=== PATIENT | female | born 1985 | race Asian ===

== ENCOUNTER 2016-02-24 01:46 | Inpatient (IN) | payer BC ==
[~2016-02-24] VITALS: Ht 161.3 cm; Wt 52.3 kg
[~2016-02-24 01:46] MED LIST: DOXY1TAB3 PO; LORA1TAB PO; ONDA-43 PO
[2016-02-24 02:12] VITALS: BP 130/76; PULSE 76; RESP 20; Ht 161.3 cm; Wt 52.3 kg
[2016-02-24] MEDS ORDERED: LACTATED RINGER'S 1,000 ML IV ONE (02:30)
[2016-02-24] MEDS: LACTATED RINGER'S 1,000 ML IV SCH ×2 (02:30→07:40)
[2016-02-24] MEDS ORDERED: ONDANSETRON 4 MG INJ IM ONE (03:30)
[2016-02-24] MEDS ORDERED: LORAZEPAM 2 MG INJ IM ONE (03:30)
[2016-02-24 03:33] LABS: BASOPHILS % 0.1 % (0.0-2.0); EOSINOPHILS % 0.1 % (0.0-7.0); HEMATOCRIT 33.9 % (37.0-47.0); HEMOGLOBIN 11.7 g/dl (12.0-16.0); LYMPHOCYTES % 8.3 % (15.0-51.0); MEAN CORPUSCULAR HEMOGLOBIN 31.2 pg (29.0-33.0); MEAN CORPUSCULAR HGB CONC 34.6 g/dl (32.0-37.0); MEAN CORPUSCULAR VOLUME 90.2 fl (82.0-101.0); MEAN PLATELET VOLUME 7.2 fl (7.4-10.4); MONOCYTE # 0.1 10^3/ul (0.3-0.9); MONOCYTES % 0.8 % (0.0-11.0); NEUTROPHIL # 11.1 10^3/ul (1.6-7.5); PLATELET COUNT 315 10^3/UL (140-440); RED BLOOD COUNT 3.75 10^6/ul (4.20-5.40); RED CELL DISTRIBUTION WIDTH 12.7 % (11.5-14.5); UNCORRECTED WBC 12.2 10^3/ul (4.8-10.8); WHITE BLOOD COUNT 12.2 10^3/ul (4.8-10.8)
[2016-02-24 03:44] LABS: ALBUMIN 3.8 g/dl (3.3-4.9); POTASSIUM 3.5 mmol/L (3.5-5.1)
[2016-02-24 03:45] LABS: CONDITION 1; LH ANALYZER COMMENTS 1; NEUTROPHILS % 90.7 % (39.0-77.0)
[2016-02-24 03:46] LABS: CREATININE 0.55 mg/dl (0.44-1.00)
[2016-02-24 03:47] LABS: ALBUMIN/GLOBULIN RATIO 1.02; BILIRUBIN,INDIRECT 0.2 mg/dl (0-1.1); BILIRUBIN,TOTAL 0.2 mg/dl (0.2-1.3); TOTAL PROTEIN 7.5 g/dl (6.1-8.1)
[2016-02-24] MEDS ORDERED: FAMOTIDINE 20 MG INJ ONE (04:05)
[2016-02-24] MEDS: ONDANSETRON 4 MG INJ IV PRN ×3 (04:07→17:01)
[2016-02-24 05:36] LABS: ADD UMIC NO; URINE BILIRUBIN (Dip) NEGATIVE (NEGATIVE); URINE BLOOD (Dip) NEGATIVE (NEGATIVE); URINE COLOR LT. YELLOW (YELLOW); URINE GLUCOSE (Dip) NEGATIVE (NEGATIVE); URINE KETONES (Dip) 3+ (NEGATIVE); URINE LEUKOCYTE ESTERASE (Dip) NEGATIVE (NEGATIVE); URINE NITRITE (Dip) NEGATIVE (NEGATIVE); URINE TOTAL PROTEIN (Dip) NEGATIVE (NEGATIVE); URINE UROBILINOGEN (Dip) 0.2 E.U./dL (0.1-1.0)
--- NOTE | 2016-02-24 07:04 | RADRPT ---
PROCEDURE: US OB limited. CLINICAL INDICATION: . Labor. TECHNIQUE: Multiple transabdominal sonographic images of the pelvis were obtained. . COMPARISON: 01/24/2016. FINDINGS: There is a single live intrauterine in cephalic presentation with heart motion of 14 6 beats per minute. The placenta is posteriorly located and without evidence of previa or abruption . The cervix is closed and measures approximately 3.0 cm in length. Amniotic fluid amount appears within normal limits with a single pocket of fluid measuring 5.8 cm in greatest depth. Measurements were made in order to determine age. The results are as follows: BPD = 6.17 cm, 25 weeks 0 days HC = 22.90 cm, 25 weeks 0 days AC = 19.81 cm, 24 weeks 3 days FL = 4.31 cm, 24 weeks 1 day EFW = 692.91 g, 1 pound 8 ounces, 22.2% IMPRESSION: Single live intrauterine measuring 24 weeks 5 days using current ultrasound measurements. Estimated date of delivery is 06/10/2016. RPTAT: PP .Sherri Dodson MD, Date Time Electronically viewed and signed by .Sherri Dodson MD, on 02/24/2016 07:03 .T/
[2016-02-24] MEDS: MULTIVIT/MIN/FOLATE/IRON/PREN TAB PO SCH (09:00)
[2016-02-24] MEDS: LORAZEPAM 2 MG INJ IV PRN ×2 (09:07→20:44)
[2016-02-24] MEDS: FAMOTIDINE 20 MG INJ IV SCH ×2 (09:13→20:34)
--- NOTE | 2016-02-24 17:02 | HP ---
Date/Time of Note Date/Time of Note DATE: 02/24/16 TIME: 16:53 OB - History Hx of Present Free Text/Dictation 31 y.o primigravida at 24w4d with c/o nausea and vomiting and lt side pain for futher care this admission is 5th times for same problem during , known to have cyclic vomiting syndrome even started prior to . at present only able to keep the ice water unable to start IV, requested to aneshegiologist to use jugular vein. Chief Complaint: nausea and vomiting left side pain Estimated Due Date: Jun 09, 2016 : 1 Para: 0 Spontaneous : 0 Therapeutic : 0 Care: Good Care Ultrasounds: Normal mid trimester US Obstetrical Complications: Hyperemesis Medical Complications: Gastrointestinal Past Family/Social History * Past Medical, Surgical, Family and Obstetric Histories reviewed from chart. Blood Type: O+ Rubella: immune RPR/VDRL: Negative GBS Status: Unknown HBsAG: Negative OB Admission Exam Vital Signs Vital Signs Vital Signs Date Time Temp Pulse Resp B/P Pulse Ox O2 Delivery O2 Flow Rate FiO2 02/24/16 02:12 97.7 76 20 130/76 Room Air Physical Exam HEENT: WNL Heart: Rhythm Normal Lungs: Clear, Equal Abdomen: WNL Extremities: Normal Reflexes: Normal Last 72 hours Lab Results CBC & BMP 02/24/16 03:21 Liver Function Test 02/24/16 03:21 Alanine Aminotransferase (ALT/SGPT) 29 Albumin 3.8 Alkaline Phosphatase 87 Aspartate Amino Transf (AST/SGOT) 28 Direct Bilirubin 0.00 Total Protein 7.5 OB Assessment/Plan Other Assessment: IUP 24W6D CYCLIC VOMITING SYNDROME Other plan: ORDERED CIARA AVELAR MD Feb 24, 2016 17:02
[2016-02-25] MEDS: LACTATED RINGER'S 1,000 ML IV SCH ×2 (01:59→02:00)
[2016-02-25] MEDS ORDERED: LACTATED RINGER'S 1,000 ML IV ONE (08:00)
[2016-02-25] MEDS: FAMOTIDINE 20 MG INJ IV SCH ×2 (09:19→21:36)
[2016-02-25] MEDS: MULTIVIT/MIN/FOLATE/IRON/PREN TAB PO SCH (09:20)
[2016-02-25] MEDS: ONDANSETRON 4 MG INJ IV PRN (13:24)
[2016-02-25] MEDS: LORAZEPAM 2 MG INJ IV PRN (14:48)
--- NOTE | 2016-02-25 15:21 | PN ---
Date/Time of Note Date/Time of Note DATE: 02/25/16 TIME: 15:14 OB Subjective Subjective Subjective sleeping at present no vomiting only nausea OB Objective Objective Objective VSS AFEBRILE EFM VARIABLE TODAY THIS AM DOWN TO 100 FOR 50SEC LAB WNL URINE CULTURE NO GROWTH FOR 24HR OB Assessment/Plan Other Assessment: 25WEEKS CYCLIC VOMITING SYNDROME Other plan: CONT CURRENT MANAGEMENT CIARA AVELAR MD Feb 25, 2016 15:21
[2016-02-26] MEDS: LACTATED RINGER'S 1,000 ML IV SCH ×3 (07:55→19:49)
[2016-02-26] MEDS: MULTIVIT/MIN/FOLATE/IRON/PREN TAB PO SCH (09:00)
[2016-02-26] MEDS: FAMOTIDINE 20 MG INJ IV SCH (09:37)
--- NOTE | 2016-02-26 18:24 | PD.PPDC ---
WEIGHER PRODUCTION Discharge Instruction Condition Patient Condition: Good Diet Diet: Resume Regular Diet Activity/Restrictions Activity: Normal Activity Restrictions: No Exercising Follow-up Follow-up with Physician: 1, Week/Weeks Return to clinic for FOOD SANITARIAN Instructions: Worsening abdominal pain Unable to tolerate diet ANIRUDH COOPER MD Feb 26, 2016 18:24
--- NOTE | 2016-02-26 20:55 | DS ---
Date/Time of Note Date/Time of Note DATE: 02/26/16 TIME: 20:52 Obstetrical Discharge Record Final Diagnosis Final Diagnosis: not delivered Other Final Diagnosis Cyclical vomiting syndrome Condition on Discharge Physical Assessment Last Vitals: T=97.6. BP 130/76. NST baseline 130-140's with accels to 160 bpm with occasional small variables within normal range for an IUP at 25 weeks. Bowel Movement: Yes Fundus: Firm Patient Condition: Stable (Able to eat and has had no N/V x 25 hours.) ANIRUDH COOPER MD Feb 26, 2016 20:55
== END 2016-02-26 20:23 | disposition home or self-care (01) | DRG 781 ==
LOC: OBT 01:46 → L-D 01:48 → OBT 02:29 → EEVIPCON 02:32 → OBG 02:32
PROVIDERS: ADMIT Obstetrics & Gynecology; ATTEND Obstetrics & Gynecology
DX: O21.0 Mild hyperemesis gravidarum (principal); Z3A.25 25 weeks gestation of pregnancy
CPT/HCPCS: 36415; 76815; 76817; 80053; 81003; 85025; 87086; 96360; 96372; 96374; G0463; J2060; J2405; J7120

== ENCOUNTER 2016-03-10 18:52 | Inpatient (IN) | END 2016-03-13 20:40 | disposition home or self-care (01) | DRG 781 | DX: O21.2 Late vomiting of pregnancy (principal); Z3A.27 27 weeks gestation of pregnancy ==

== ENCOUNTER 2016-03-14 17:49 | Inpatient (IN) | payer BC ==
[~2016-03-14] VITALS: Ht 160 cm; Wt 53.6 kg
[2016-03-14 18:08] VITALS: Ht 160 cm; Wt 53.6 kg
[2016-03-14 18:09] VITALS: BP 136/86; PULSE 82; RESP 18
--- NOTE | 2016-03-14 19:28 | PN ---
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 She has been taking Ativan Zofran and Zantac on a as needed basis she is now 27 weeks and 4 days her due date is June 09 her vital signs are fairly stable however her blood pressure slightly elevated is 136/86 pulse rate 82 respiration 18 her pain level she describes as 10 over excuse me to 6/10 on examination as I mentioned she is a little nauseated ear nose throat otherwise is she appears to be slightly dehydrated neck is normal no neck vein distention no thyromegaly Her chest is clear to auscultation percussion heart normal sinus rhythm abdomen is soft she has some tenderness of epigastric area fundus is normal no tenderness of uterus no contraction heart tone is normal pelvic exam was not done I ordered a [facility] lab test urinalysis and check electrolytes and a CBC dextrose 5% Ringer lactate was started on 1 mg of Ativan was given recuperating the Current Medications Medications (Trade) Dose Ordered Sig/Laith Route PRN Reason Start Time Stop Time Status Last Admin Dose Admin Dextrose/Lactated Ringer's (D5-Lr) 1,000 ml @ 125 mls/hr Q8H IV 03/14/16 19:30 Ondansetron HCl (Zofran Inj) 4 mg ONCE PRN IV N/V 03/14/16 19:30 UNV Lorazepam (Ativan) 1 mg ONCE ONCE IM 03/14/16 19:30 03/14/16 19:31 UNV triage area for couple more hours and when stable will send her home with central home to be followed in the clinic CHASE TALAVERA MD Mar 14, 2016 19:28
[2016-03-14] MEDS ORDERED: ONDANSETRON 4 MG INJ IV PRN (19:30)
[2016-03-14] MEDS ORDERED: LORAZEPAM 2 MG INJ IM ONE (19:30)
[2016-03-14] MEDS ORDERED: DEXTROSE 5%-LR 1,000 ML IV SCH (19:30)
[2016-03-14 21:07] LABS: HEMATOCRIT 35.2 % (37.0-47.0); HEMOGLOBIN 11.9 g/dl (12.0-16.0); LYMPHOCYTES # 0.8 10^3/ul (0.8-2.9); LYMPHOCYTES % 6.7 % (15.0-51.0); MEAN CORPUSCULAR HEMOGLOBIN 31.3 pg (29.0-33.0); MEAN CORPUSCULAR HGB CONC 33.7 g/dl (32.0-37.0); MEAN CORPUSCULAR VOLUME 92.7 fl (82.0-101.0); MEAN PLATELET VOLUME 7.4 fl (7.4-10.4); MONOCYTE # 0.1 10^3/ul (0.3-0.9); MONOCYTES % 0.8 % (0.0-11.0); NEUTROPHIL # 11.7 10^3/ul (1.6-7.5); NEUTROPHILS % 92.5 % (39.0-77.0); PLATELET COUNT 375 10^3/UL (140-440); UNCORRECTED WBC 12.7 10^3/ul (4.8-10.8); WHITE BLOOD COUNT 12.7 10^3/ul (4.8-10.8)
[2016-03-14 21:12] LABS: CONDITION 1; LH ANALYZER COMMENTS 1
[2016-03-14 21:22] LABS: ALBUMIN 3.4 g/dl (3.3-4.9); BILIRUBIN,INDIRECT 0.2 mg/dl (0-1.1); BILIRUBIN,TOTAL 0.2 mg/dl (0.2-1.3); CREATININE 0.44 mg/dl (0.44-1.00); POTASSIUM 3.3 mmol/L (3.5-5.1)
[2016-03-14 21:24] LABS: ALBUMIN/GLOBULIN RATIO 1.06; CALCIUM 8.5 mg/dl (8.4-10.2); TOTAL PROTEIN 6.6 g/dl (6.1-8.1); URIC ACID 3.3 mg/dl (3.1-7.9)
[2016-03-14] MEDS: LORAZEPAM 2 MG INJ IV PRN (22:01)
[2016-03-14 22:10] LABS: ADD UMIC YES; URINE BILIRUBIN (Dip) NEGATIVE (NEGATIVE); URINE BLOOD (Dip) NEGATIVE (NEGATIVE); URINE COLOR LT. YELLOW (YELLOW); URINE GLUCOSE (Dip) NEGATIVE (NEGATIVE); URINE KETONES (Dip) 3+ (NEGATIVE); URINE LEUKOCYTE ESTERASE (Dip) NEGATIVE (NEGATIVE); URINE NITRITE (Dip) NEGATIVE (NEGATIVE); URINE TOTAL PROTEIN (Dip) NEGATIVE (NEGATIVE); URINE UROBILINOGEN (Dip) 0.2 E.U./dL (0.1-1.0)
[2016-03-14 22:23] LABS: SQUAMOUS EPITHELIAL CELL,UR FEW; URINE RBCS NONE SEEN /HPF (0)
[2016-03-14 22:24] LABS: BACTERIA,URINE MODERATE
[2016-03-14] MEDS: ONDANSETRON INJ 8 MG in DEXTROSE 5% 50 ML IV PRN (23:29)
[2016-03-14] MEDS: DEXTROSE 5%-LR 1,000 ML IV SCH (23:33)
[2016-03-15] MEDS: LORAZEPAM 2 MG INJ IV PRN ×2 (03:56→10:07)
[2016-03-15] MEDS: DEXTROSE 5%-LR 1,000 ML IV SCH ×3 (05:12→17:11)
[2016-03-15] MEDS: ONDANSETRON INJ 8 MG in DEXTROSE 5% 50 ML IV PRN (05:33)
[2016-03-15] MEDS: FAMOTIDINE 20 MG INJ IV SCH ×2 (09:21→21:14)
--- NOTE | 2016-03-15 14:35 | HP ---
Date/Time of Note Date/Time of Note DATE: 03/15/16 TIME: 14:20 OB - History Hx of Present Free Text/Dictation 31 y.o primigravida at 27w4d who has been suffering from repeated vomiting who was discharged after hospitalized for few days for same problem , came back 24hrs after with c/o nausea and vomiting and epigastric pain on 03/14/16 according to patipettyy,she tolerated meals until she went out to restaurant possibly overate. this admission is I believe 7th occasions during this . admitted for management of her condition ,also this time will consult to gastroenerologist since she hasn't been seen forawhile also her blood pressure was relatively elevated on admission which will be also focused on Chief Complaint: nausea and vomiting epigatric pain : 1 Para: 0 Spontaneous : 0 Care: Good Care Ultrasounds: Normal mid trimester US Obstetrical Complications: Other Medical Complications: Gastrointestinal (cyclic vomiting) Past Family/Social History * Past Medical, Surgical, Family and Obstetric Histories reviewed from chart. OB Admission Exam Vital Signs Vital Signs Vital Signs Date Time Temp Pulse Resp B/P Pulse Ox O2 Delivery O2 Flow Rate FiO2 03/14/16 18:09 97.7 82 18 136/86 Room Air Physical Exam HEENT: WNL Heart: Rhythm Normal Lungs: Clear, Equal Abdomen: WNL Extremities: Normal Reflexes: Normal Cervical Dilatation: other Effacement: Other Station: Other Membranes: Intact Amniotic Fluid: Unevaluable Heart Rate: 140's Accelerations: Accelerations Present Decelerations: No Decelerations Varibility: Minimum Contractions on Admission: None Last 72 hours Lab Results CBC & BMP 03/14/16 20:30 Liver Function Test 03/14/16 20:30 Alanine Aminotransferase (ALT/SGPT) 27 Albumin 3.4 Alkaline Phosphatase 82 Aspartate Amino Transf (AST/SGOT) 32 Direct Bilirubin 0.00 Total Protein 6.6 OB Assessment/Plan Reason for admission: other (cyclic vomiting) Other plan: intravenous fluid antiemetics frequent feeding GI conult ( DR Jamison was informed) CIARA AVELAR MD Mar 15, 2016 14:30
[2016-03-15 22:58] LABS: SCRET 0.44 mg/dl (0.44-1.00)
[2016-03-16] MEDS: DEXTROSE 5%-LR 1,000 ML IV SCH ×3 (01:09→22:07)
[2016-03-16] MEDS: FAMOTIDINE 20 MG INJ IV SCH ×2 (09:04→21:39)
--- NOTE | 2016-03-16 12:40 | PD.PPDC ---
VAMP MARKER Discharge Instruction Diagnosis Final Diagnosis: IUP 27w4d cyclic vomiting Condition Patient Condition: Stable Diet Diet: Special Diet Special Diet: no dairy product no chocolate frequent feeding ensure Activity/Restrictions Activity: Normal Activity Follow-up Follow-up with Physician: 2, Week/Weeks CIARA AVELAR MD Mar 16, 2016 12:40
--- NOTE | 2016-03-16 12:47 | DS ---
Date/Time of Note Date/Time of Note DATE: 03/16/16 TIME: 12:41 Obstetrical Discharge Record Final Diagnosis Final Diagnosis: not delivered Other Final Diagnosis IUP 27w4d cyclic vomiting Complications Other (cyclic vomiting) Augmentation: No Induction: No Rupture of Membranes: No Condition on Discharge Physical Assessment Last Vitals: vss afebrile tolerating diet well feel better, desire to go home no vomiting since yesterday pm seen by GI spec no need for ativan for the last day Voiding: Yes Breast: Soft, non-tender Calf Tenderness: No Patient Condition: Stable CIARA AVELAR MD Mar 16, 2016 12:47
--- NOTE | 2016-03-16 13:06 | CONS ---
DATE OF ADMISSION: 03/14/2016 DATE OF CONSULTATION: TYPE OF CONSULTATION: Gastrointestinal. HISTORY OF PRESENT ILLNESS: A 31-year-old pleasant female, at 26 weeks, was admitted to the hospital for nausea, vomiting and epigastric discomfort. This is a recurrent episode and as per [facility] staff it is her seventh episode during this . The patient has had a history of cyclical vomiting since the age of 16. Her symptoms had completely subsided 4 years ago, but during pregnanc y it has come back. The vomiting and nausea is increased by certain foods, especially milk. No GI bleeding, no fever, no chills, no chest pain, no shortness of breath. PAST MEDICAL HISTORY: History of cyclic vomiting since the age of 16. SOCIAL HISTORY: She does not smoke or drink. No history of recreational drugs, especially marijuana . FAMILY HISTORY: Mother has a history of migraine. PHYSICAL EXAMINATION: GENERAL: Alert, awake, not in distress. VITAL SIGNS: Stable. HEENT: Unremarkable. NECK: Supple. No thyromegaly, no lymphadenopathy. CARDIOVASCULAR: No murmur, gallop or click. LUNGS: Clear. ABDOMEN: Benign. EXTREMITIES: No pedal edema. Homans sign is negative. No clubbing, no cyanosis. CENTRAL NERVOUS SYSTEM: Grossly within normal limits. IMPRESSION: 1. Cyclical vomiting. 2. The patient is 26 and 7-weeks PLAN: 1. Zofran sublingually or IV. 2. IV fluid, especially dextrose 10% 3. Continue with H2 darby. 4. The patient is taking Ativan in the hospital and it has given her much relief. 5. She may benefit from CoQ10 200 mg b.i.d., if approved by the SIGN DESIGNER doctor, or , 1 gram twi ce a day. This is a dietary supplement and the patient may benefit for cyclical vomiting. 6. Also, she should avoid cheese and chocolate. Multiple small meals. The patient can also take ei ther Ensure or Glucerna for nutritional support and adequate vitamins. She is not able to take pren atal vitamins. In the future she would benefit also from migraine medication. Sometimes the patient may benefit also from amitriptyline 50 to 100 mg. I will discuss this with Dr. Etaon. Thank you again for the referral. Dictated By: RAYMUNDO DAILY/HENNY Conf#: [id number] [facility]#: [id number]
[2016-03-16] MEDS ORDERED: ONDANSETRON 4 MG INJ ONE (13:19)
[2016-03-16] MEDS: LORAZEPAM 2 MG INJ IV PRN ×2 (14:38→20:57)
[2016-03-16] MEDS: ONDANSETRON INJ 8 MG in DEXTROSE 5% 50 ML IV PRN ×2 (14:56→22:08)
[2016-03-17] MEDS: LORAZEPAM 2 MG INJ IV PRN (03:03)
[2016-03-17] MEDS: DEXTROSE 5%-LR 1,000 ML IV SCH ×4 (07:07→23:26)
[2016-03-17] MEDS: ONDANSETRON INJ 8 MG in DEXTROSE 5% 50 ML IV PRN (08:17)
[2016-03-17] MEDS: FAMOTIDINE 20 MG INJ IV SCH ×2 (09:23→20:48)
[2016-03-18] MEDS: ONDANSETRON INJ 8 MG in DEXTROSE 5% 50 ML IV PRN (08:42)
[2016-03-18] MEDS: FAMOTIDINE 20 MG INJ IV SCH ×2 (09:01→21:00)
[2016-03-18] MEDS: LORAZEPAM 2 MG INJ IV PRN ×2 (09:54→20:40)
[2016-03-18] MEDS: DEXTROSE 5%-LR 1,000 ML IV SCH (13:12)
--- NOTE | 2016-03-18 19:05 | QN ---
Documentation Comment Pt readmitted 03/14 afeter being sent home 03/13. Was doing fine until that morning when she took another turn for the worse. She has been very difficult to place IV's for this admit, as with all admissions. She last the IV she had in her foot this morning, and, generally, the pt is very protective of her IV sites. Will have anesthesia come and place another IV tonight and the pt is in great distress with abdominal pain. The meds given IM do not provide the same level of relief as the IV. BP's, at highest are in 140's over 80's. All PIH labs including the 24 hour urine are very normal. Dr Chavez came to see the patient today and says that sometimes migraine medications can help. The 2 meds he recommended are contraindicated in : CoQ10 and Elavil. The Elavil is mostly contraindicated in the late 3rd trimester so will ask Perinatology to see her tomorrow so we can consider this. Will review CoQ10 to see why exactly this is contraindicated. ANIRUDH COOPER MD Mar 18, 2016 19:05
[2016-03-18] MEDS: D5W-0.45 NACL + KCL 40 MEQ 1,000 ML IV SCH (20:43)
[2016-03-19] MEDS: ONDANSETRON INJ 8 MG in DEXTROSE 5% 50 ML IV PRN (00:27)
[2016-03-19] MEDS: LORAZEPAM 2 MG INJ IV PRN ×2 (02:47→08:02)
[2016-03-19] MEDS: D5W-0.45 NACL + KCL 40 MEQ 1,000 ML IV SCH ×2 (06:59→15:30)
[2016-03-19] MEDS: FAMOTIDINE 20 MG INJ IV SCH ×2 (09:09→23:55)
--- NOTE | 2016-03-19 23:58 | QN ---
Documentation Comment Pt much improved today. Was able to get another IV last night. Pt able to have small sips of Ensure, dry cheerios. Last medication was Zofran this AM. Dr Gallego apparently called today, the consult questions were reviewed with her, per the nurse, and Dr Gallego said that the CoQ10 was fine but the amitryptaline was not. I was not able to speak to her and she did not write a note. I will not be giving the pt any oral meds, at this point, as I do not want to upset her stomach. Possible tomorrow. Pt states that the Elavil is what helped her pull out of the cyclic vomiting cycle 3 years ago, when she was not . Continue care. ANIRUDH COOPER MD Mar 19, 2016 23:58
[2016-03-20] MEDS: D5W-0.45 NACL + KCL 40 MEQ 1,000 ML IV SCH ×3 (03:12→10:51)
[2016-03-20] MEDS: FAMOTIDINE 20 MG INJ IV SCH ×2 (08:52→21:29)
[2016-03-20] MEDS: LORAZEPAM 2 MG INJ IV PRN ×3 (10:42→21:30)
--- NOTE | 2016-03-20 12:37 | CONS ---
DATE OF ADMISSION: 03/14/2016 DATE OF CONSULTATION: 03/20/2016 I was asked to comment on safety of amitriptyline and Coenzyme Q10 on . The patient has a diagnosis of cyclic vomiting. The last episode was 3 years ago. She has been admitted multiple melody with complaint of vomiting throughout this . This is her first . Gastroentero logist has been consulted and they are managing the patient. She is currently on Pepcid, Zofran, an d Ativan. As per patient, Zofran does not have any effect on her, but Ativan helps. She stated cirilo t 3 years ago she was on amitriptyline and amitriptyline helped her to alleviate her symptoms and af ter a few weeks, the symptoms resolved and amitriptyline was discontinued. Amitriptyline in pregnancies class C, there has been some congenital anomalies shown in the animal s tudies, but there are not enough studies on humans to categorically state any risk on . Th ere are a few studies available which have shown that risk of limb anomalies and cardiac anomalies; however, again these studies have not been conclusive. However, use of amitriptyline has been shown to increase the addiction after delivery, presley cially if the patient is taking it for a long period of time or close to the delivery. I spoke to t marilyn patient. I discussed the potential risks and the risk. Also Coenzyme Q10 is a normal u nnatural coenzyme in the body which, therefore, is safe to be taken during the . After we reviewed the risks and benefits of the amitriptyline and the fact that essentially this is the only medication that helped the patient with her last episode 3 years ago, amitriptyline could be conside red. However, amitriptyline and Ativan together I would advise against. If amitriptyline is going to take a few weeks to start taking effect, then maybe the Ativan can be used with the amitriptyline until amitriptyline starts taking effect, and then Ativan can be discontinued. Please make sure th at the patient has had a level 2 ultrasound to assess anatomy at about 20 weeks. Also, I do recommend the patient be on testing twice weekly given the maternal weigh t which is underweight and also nausea, vomiting history and current, and also since she is going to be on amitriptyline or Ativan as it can have anesthetic effect on the fetus. Also, after the delivery, I do recommend to let pediatricians know of maternal use of this medicatio n for them to be aware of possible withdrawal. Dictated By: KEVIN PITTMAN/HENNY Conf#: [id number] DID#: [id number]
--- NOTE | 2016-03-20 18:07 | CONS ---
Date/Time of Note Date/Time of Note DATE: 03/20/16 TIME: 17:59 Assessment/Plan Assessment/Plan Additional Assessment/Plan IMPRESSION: 1. Cyclical vomiting. 2. The patient is 26 and 7-weeks PLAN: 1. Zofran sublingually or IV. 2. IV fluid, especially dextrose 10% 3. Continue with H2 darby. 4. The patient is taking Ativan in the hospital and it has given her much relief. 5. She may benefit from CoQ10 200 mg b.i.d., if approved by the UNIX ADMINISTRATOR doctor, This is a dietary supplement and the patient may benefit for cyclical vomiting. 6. Also, she should avoid cheese and chocolate. Multiple small meals. The patient can also take either Ensure or Glucerna for nutritional support and adequate vitamins. She is not able to take vitamins. In the future she would benefit also from migraine medication. Sometimes the patient may benefit also from amitriptyline 50 to 100 mg.Pt.states amitriptyline did help her in the past.however because of its side effect,,I leave that decision to OBEGYN doctor 7.? if weight is issue then enteral feeding ? Consultation Date/Type/Reason Admit Date/Time Mar 14, 2016 at 21:32 Initial Consult Date 24 HR Interval Summary Constitutional: improved Exam/Review of Systems Vital Signs Vitals Intake and Output 03/19/16 03/19/16 03/20/16 15:00 23:00 07:00 Intake Total 625 ml 436 ml 875 ml Output Total 250 ml Balance 375 ml 436 ml 875 ml Exam Constitutional: alert, oriented, well developed Psych: nl mood/affect, no complaints Head: atraumatic, normocephalic Eyes: EOMI, PERRL, nl conjunctiva, nl lids, nl sclera ENMT: nl external ears & nose, nl lips & teeth, nl nasal mucosa & septum Neck: non-tender, supple Respiratory: clear to auscultation, normal air movement Cardiovascular: nl pulses, regular rate and rhythm Gastrointestinal: nl liver, spleen, non-tender, soft Musculoskeletal: nl extremities to inspection, nl gait and stance Extremities: normal pulses Neurological: NUTRITIONAL SERVICES HOST II-XII intact, nl mental status, nl speech, nl strength Skin: nl turgor, No rash or lesions Lymph: nl lymph nodes Medications Medications Current Medications Lorazepam 2 mg 2 mg Q6H PRN IV NAUSEA Last administered on 03/20/16 16:01; Admin Dose 2 MG; Start 03/14/16 at 21:30 Ondansetron HCl/ Dextrose (Zofran Inj/D5W) 54 ml @ 108 mls/hr Q6H PRN IV NAUSEA AND/OR VOMITING Last administered on 03/19/16 00:27; Admin Dose 108 MLS/ HR; Start 03/14/16 at 21:30 Famotidine 20 mg 20 mg BID IV Last administered on 03/20/16 08:52; Admin Dose 20 MG; Start 03/15/16 at 09:00 Potassium Chloride/Dextrose/ Sod Cl (D5-1/2ns + KCl 40 Meq) 1,000 ml @ 125 mls/ hr Q8H IV Last administered on 03/20/16 10:51; Admin Dose 125 MLS/HR; Start 03/18/16 at 19:30 Amitriptyline HCl (Elavil) 50 mg HS PO ; Start 03/20/16 at 21:00 RAYMUNDO THORNTON MD Mar 20, 2016 18:07
--- NOTE | 2016-03-20 19:55 | QN ---
Documentation Comment Pt had been doing better but has backslid today. IV has infiltrated everyday and had to be restarted as it has this afternoon. Last night OB anesthesia was able to restart with a vein finder. Appreciate the consults with GI and perinatology. Will send her to get CoQ10 200 BID as not on the formulary. Also ordered Elavil 50 p.o. q HS. Asked pt to take with a small sip of Ensure and then to wait at least 2 hours before taking anything else so hopefully it will stay down. Will initiate now with the plan to stop the Ativan once the Elavil kicks in and to taper and stop the Elavil at least 4 weeks before her due date to minimize withdrawal in the baby. ANIRUDH COOPER MD Mar 20, 2016 19:55
[2016-03-20] MEDS ORDERED: DEXTROSE 10%/0.2% NACL 1,000 ML IV SCH ×2 (20:00)
[2016-03-20] MEDS ORDERED: AMITRIPTYLINE 50 MG TAB PO SCH (21:00)
[2016-03-20] MEDS: DEXTROSE 10%/0.2% NACL 1,000 ML IV SCH (21:29)
[2016-03-21] MEDS: DEXTROSE 10%/0.2% NACL 1,000 ML IV SCH ×3 (05:02→21:40)
[2016-03-21] MEDS: ONDANSETRON INJ 8 MG in DEXTROSE 5% 50 ML IV PRN (05:36)
[2016-03-21] MEDS: FAMOTIDINE 20 MG INJ IV SCH ×2 (09:00→21:06)
[2016-03-21] MEDS ORDERED: AMITRIPTYLINE 25 MG TAB PO SCH (21:03)
--- NOTE | 2016-03-21 23:29 | QN ---
Documentation Comment Pt at 28 weeks, with cyclic vomiting syndrome. Started on Elavil last night. So far pt seems to be steadily improving. Has not needed any Ativan today. Has been able to eat very small amounts all day. Is also now on D10. If this trend continues, should be able to send the patient home tomorrow. She was sent out prematurely with the last visit and came right back so am waiting until we get a longer and better wellness window. ANIRUDH COOPER MD Mar 21, 2016 23:29
[2016-03-22] MEDS: DEXTROSE 10%/0.2% NACL 1,000 ML IV SCH ×2 (05:10→13:04)
[2016-03-22] MEDS: FAMOTIDINE 20 MG INJ IV SCH (08:56)
--- NOTE | 2016-03-22 15:16 | DS ---
Date/Time of Note Date/Time of Note DATE: 03/22/16 TIME: 15:12 Obstetrical Discharge Record Final Diagnosis Final Diagnosis: not delivered Other Final Diagnosis Cyclic vomiting syndrome. Complications Other (Pt was not improving. GI consult with Dr Chavez recommended Elavil. Will use short term i.e. not past 36 weeks as cannot be on board at delivery. Pt better now and able to be discharged home. Will hope she stays stable.) Augmentation: No Induction: No Condition on Discharge Physical Assessment Last Vitals: Afebrile, VSS. Voiding: Yes Bowel Movement: Yes Fundus: Other (Gravid) Patient Condition: ANIRUDH Ortega MD Mar 22, 2016 15:16
== END 2016-03-22 15:15 | disposition home or self-care (01) | DRG 781 ==
LOC: OBT 17:49 → L-D 17:50 → OBT 21:06 → OBG 21:32
PROVIDERS: ADMIT Obstetrics & Gynecology; ATTEND Obstetrics & Gynecology
DX: O21.2 Late vomiting of pregnancy (principal); G43.A0 Cyclical vomiting, in migraine, not intractable; Z3A.27 27 weeks gestation of pregnancy
CPT/HCPCS: 36415; 80053; 81001; 81003; 82575; 84560; 85025; 96365; 96372; G0463; J2060; J2405; J3480; J7121

== ENCOUNTER 2016-03-25 11:24 | Inpatient (IN) | payer BC ==
[~2016-03-25] VITALS: Ht 160 cm; Wt 51.4 kg
[2016-03-25 11:39] VITALS: Ht 160 cm; Wt 51.4 kg
[2016-03-25] MEDS ORDERED: AMIT50TA3 PO (11:42)
[2016-03-25] MEDS ORDERED: LORA1TAB PO (11:42)
[2016-03-25] MEDS ORDERED: ONDANSETRON 4 MG INJ IV PRN (12:00)
[2016-03-25] MEDS: FAMOTIDINE 20 MG INJ IV SCH ×3 (13:45→23:50)
[2016-03-25] MEDS: DEXTROSE 5%-LR 1,000 ML IV SCH ×3 (13:45→23:00)
[2016-03-25] MEDS: LORAZEPAM 2 MG INJ IV PRN (13:45)
[2016-03-25 14:30] LABS: POTASSIUM 3.5 mmol/L (3.5-5.1)
[2016-03-25 14:32] LABS: CREATININE 0.59 mg/dl (0.44-1.00)
[2016-03-25 14:33] LABS: CALCIUM 9.2 mg/dl (8.4-10.2)
[2016-03-25] MEDS ORDERED: AMITRIPTYLINE 50 MG TAB PO SCH (22:00)
[2016-03-26] MEDS: DEXTROSE 5%-LR 1,000 ML IV SCH ×3 (06:35→21:36)
[2016-03-26] MEDS: FAMOTIDINE 20 MG INJ IV SCH (08:52)
--- NOTE | 2016-03-26 21:27 | HP ---
DATE OF ADMISSION: 03/25/2016 HISTORY OF PRESENT ILLNESS: The patient is a 31-year-old 1, last menstrual period 6 with estimated date of confinement of 06/09/2016 with an intrauterine at 29 weeks. The patient has a known history of cyclical vomiting syndrome that she has had her whole life and she di d fine for 3 years prior to . During this , she had exacerbation of this conditio n. This is her 8th admission. Initially, it was once a month and it has become a little more frequ ent. She just went home a few days ago. During her last admission, we had a GI consultation and lynn mike initiated her on co-Q10 and Elavil, which is not normally and recommended , but we are go ing to try it for the next 4 to 6 weeks to get her through this difficult time and stop it hopefully around 36 weeks to get out of the system before the baby is born. Normally, during exacerbations, Ativan helps significantly. On prior admissions, we have given her Ativan, Zofran, Diclegis, and Pe pcid. Now she has been on Elavil every night. Of note, with this admission, she is not as sick as usually is. She has vomited 7 times before coming in in a short period of time. Came in and starte d on IV hydration, IV Zofran, Diclegis, and then Ativan and she actually does not look too bad, alth ough she is obviously not eating anything. I am hoping the Elavil is starting to work. PAST MEDICAL HISTORY: None other than the cyclical vomiting syndrome. PAST SURGICAL HISTORY: None. ALLERGIES: PENICILLIN. MEDICATIONS: 1. Ativan. 2. Zofran. 3. Diclegis. 4. Pepcid. 5. Now the Elavil 50 mg at bedtime. 6. She takes Boost at home, as this is something that agrees with her instead of vitamins, as she c annot take vitamins at this point. LABORATORY DATA: Chem-7 done on admission showed normal potassium levels. Sodium was just 1 point below normal range. PHYSICAL EXAMINATION: LUNGS: Clear to auscultation. HEART: Regular rate and rhythm. ABDOMEN: Soft, nontender, gravid. PELVIC: Deferred. EXTREMITIES: Nontender. No edema. ASSESSMENT: 1. Intrauterine at 29 weeks. 2. Cyclical vomiting syndrome. I elevated the Elavil to 100 mg daily, Pepcid, Ativan 2 mg q. 6 p.r .n., Zofran 8 mg, IV hydration, and passage of time. Dictated By: ANIRUDH STEELE/HENNY Conf#: [id number] DID#: [id number]
[2016-03-26] MEDS: AMITRIPTYLINE 25 MG TAB PO SCH (21:36)
--- NOTE | 2016-03-26 23:20 | PD.PPDC ---
STAFF MINE WARFARE OFFICER Discharge Instruction Diagnosis Final Diagnosis: IUP at 29 weeks. cyclic vomiting syndrome Condition Patient Condition: Good Diet Diet: Resume Regular Diet Activity/Restrictions Activity: Bedrest May be up to bathroom May be up for meals May Shower Restrictions: No Exercising Follow-up Follow-up with Physician: 2, Week/Weeks Return to clinic for CLINICAL ABSTRACTOR Instructions: Worsening abdominal pain Unable to tolerate diet ANIRUDH COOPER MD Mar 26, 2016 23:20
--- NOTE | 2016-03-26 23:27 | DS ---
Date/Time of Note Date/Time of Note DATE: 03/26/16 TIME: 23:25 Obstetrical Discharge Record Final Diagnosis Final Diagnosis: not delivered Other Final Diagnosis IUP at 29 weeks; cyclic vomiting syndrome. Condition on Discharge Physical Assessment Last Vitals: Afebrile. BP stable. NST reactive. No contractions. Voiding: Yes Bowel Movement: Yes Breast: Soft, non-tender Fundus: Firm Calf Tenderness: No Patient Condition: ANIRUDH Ortega MD Mar 26, 2016 23:27
[2016-03-27] MEDS: DEXTROSE 5%-LR 1,000 ML IV SCH ×3 (04:25→17:49)
[2016-03-27] MEDS ORDERED: ONDANSETRON INJ 8 MG in SOD CHLORIDE 0.9% 50 ML IV PRN (08:00)
[2016-03-27] MEDS: FAMOTIDINE 20 MG INJ IV SCH ×2 (09:00→21:12)
[2016-03-27] MEDS: LORAZEPAM 2 MG INJ IV PRN (09:02)
[2016-03-27] MEDS ORDERED: AMITRIPTYLINE 25 MG TAB PO SCH (21:00)
[2016-03-27] MEDS: AMITRIPTYLINE 25 MG TAB PO SCH (21:12)
[2016-03-28] MEDS: DEXTROSE 5%-LR 1,000 ML IV SCH ×2 (03:04→13:10)
[2016-03-28] MEDS: FAMOTIDINE 20 MG INJ IV SCH (09:18)
--- NOTE | 2016-03-28 20:20 | DS ---
Date/Time of Note Date/Time of Note DATE: 03/28/16 TIME: 20:18 Obstetrical Discharge Record Final Diagnosis Final Diagnosis: not delivered Other Final Diagnosis Cyclic vomiting syndrome. Delayed discharge after pt had recurrent vomiting 03/27 when preparing for discharge. Complications Augmentation: No Induction: No Condition on Discharge Physical Assessment Last Vitals: Afebrile. VSS. Voiding: Yes Bowel Movement: Yes Breast: Soft, non-tender Fundus: Firm Calf Tenderness: No Patient Condition: ANIRUDH Ortega MD Mar 28, 2016 20:20
[2016-03-28] MEDS ORDERED: AMIT100T2 PO (20:53)
== END 2016-03-28 22:00 | disposition home or self-care (01) | DRG 781 ==
LOC: OBT 11:24 → L-D 11:24 → OBT 12:01 → OBG 12:02
PROVIDERS: ADMIT Obstetrics & Gynecology; ATTEND Obstetrics & Gynecology
DX: O21.2 Late vomiting of pregnancy (principal); Z3A.29 29 weeks gestation of pregnancy
CPT/HCPCS: 80048; G0463; J2060; J2405; J7121

== ENCOUNTER 2016-04-17 14:29 | Outpatient (CLI) | payer BC ==
[~2016-04-17] VITALS: Ht 161.3 cm; Wt 53.3 kg
[~2016-04-17 14:29] MED LIST changes: +AMIT100T2 PO
[2016-04-17 15:11] LABS: ADD SCAN DIFF NO; BASOPHIL # 0.1 10^3/ul (0.0-0.1); BASOPHILS % 0.8 % (0.0-2.0); EOSINOPHILS # 0.2 10^3/ul (0.0-0.5); EOSINOPHILS % 2.9 % (0.0-7.0); HEMATOCRIT 32.8 % (37.0-47.0); HEMOGLOBIN 10.9 g/dl (12.0-16.0); LYMPHOCYTES # 1.3 10^3/ul (0.8-2.9); LYMPHOCYTES % 16.2 % (15.0-51.0); MEAN CORPUSCULAR HEMOGLOBIN 29.9 pg (29.0-33.0); MEAN CORPUSCULAR HGB CONC 33.2 g/dl (32.0-37.0); MEAN CORPUSCULAR VOLUME 90.1 fl (82.0-101.0); MEAN PLATELET VOLUME 9.4 fl (7.4-10.4); MONOCYTE # 0.7 10^3/ul (0.3-0.9); MONOCYTES % 9.3 % (0.0-11.0); NEUTROPHIL # 5.5 10^3/ul (1.6-7.5); NEUTROPHILS % 69.9 % (39.0-77.0); PLATELET COUNT 311 10^3/UL (140-415); RED BLOOD COUNT 3.64 10^6/ul (4.20-5.40); RED CELL DISTRIBUTION WIDTH 12.4 % (11.5-14.5); WHITE BLOOD COUNT 7.9 10^3/ul (4.8-10.8)
[2016-04-17 15:20] LABS: ALBUMIN 3.4 g/dl (3.3-4.9)
[2016-04-17 15:21] LABS: POTASSIUM 3.7 mmol/L (3.5-5.1)
[2016-04-17 15:22] LABS: INR 0.96; PARTIAL THROMBOPLASTIN TIME 29.6 Sec (25.0-35.0); PROTIME 12.8 Sec (12.2-14.2)
[2016-04-17 15:23] LABS: ALBUMIN/GLOBULIN RATIO 0.97; BILIRUBIN,INDIRECT 0.1 mg/dl (0-1.1); BILIRUBIN,TOTAL 0.1 mg/dl (0.2-1.3); CREATININE 0.51 mg/dl (0.44-1.00); TOTAL PROTEIN 6.9 g/dl (6.1-8.1)
[2016-04-17 15:24] LABS: URIC ACID 3.8 mg/dl (3.1-7.9)
--- NOTE | 2016-04-17 15:27 | RADRPT ---
PROCEDURE: US OB. CLINICAL INDICATION: Size and dates , PIH TECHNIQUE: Multiple sonographic images of the pelvis and gravid uterus were obtained. The images were reviewed on a PACS workstation. COMPARISON: 02/24/2016 FINDINGS: There is a single viable intrauterine gestation. Cardiac activity is present with 155 beats per min grace. There is a vertex presentation. The placenta is posterior. There is no evidence for an abruption or placenta previa. There is a normal amount of amniotic fluid with an ATTILA = 15.9 cm. Measurements were made in order to determine age. The results are as follows: BPD =8.0 cm HC =29.2 cm AC =28.9 cm FL =6.3 cm Estimated gestational age of approximately 32 weeks and 2 days based on ultrasound measurements. Clinical age: 32 weeks and 3 days. The estimated date of delivery is 06/10/16, based on ultrasound measurements. The EFW = 2003 g, 44%, based on LMP age. RPTAT: AA IMPRESSION: Single viable intrauterine gestation of approximately 32 weeks and 2 days based on ultrasound measu rements. .Aleksandar Menendez MD, Date Time Electronically viewed and signed by .Aleksandar Menendez MD, on 04/17/2016 15:26 .S/
--- NOTE | 2016-04-17 15:27 | RADRPT ---
PROCEDURE: US OB biophysical profile. CLINICAL INDICATION: decreased movements, PIH TECHNIQUE: Multiple sonographic images of the pelvis were obtained. The images were reviewed on a PACS workstation. COMPARISON: 02/24/2016 FINDINGS: There is a single viable intrauterine gestation. Cardiac activity is present with 145 beats per min [place]. There is a vertex presentation. The placenta is posterior. There is no evidence of placental abruption. There is a normal amount of amniotic fluid with an ATTILA = 15.9 cm. Biophysical profile: movement 2/2 tone 2/2. breathing 2/2 ATTILA 2/2 Total 09/17 RPTAT: AA . IMPRESSION: Normal biophysical profile. . .Aleksandar Menendez MD, MD Date Time Electronically viewed and signed by .Aleksandar Menendez MD, MD on 04/17/2016 15:27 .S/
[2016-04-17 15:55] VITALS: Ht 161.3 cm; Wt 53.3 kg
[2016-04-17 15:56] VITALS: PULSE 77; RESP 20
[2016-04-17] MEDS ORDERED: LORAZEPAM 2 MG INJ IV ONE (16:30)
[2016-04-17] MEDS ORDERED: ONDANSETRON INJ 8 MG in DEXTROSE 5% 50 ML IV PRN (16:30)
[2016-04-17] MEDS ORDERED: LACTATED RINGER'S 1,000 ML IV SCH (16:36)
[2016-04-17 16:37] LABS: ADD UMIC YES; URINE BILIRUBIN (Dip) NEGATIVE (NEGATIVE); URINE BLOOD (Dip) TRACE (NEGATIVE); URINE COLOR LT. YELLOW (YELLOW); URINE GLUCOSE (Dip) NEGATIVE (NEGATIVE); URINE KETONES (Dip) TRACE (NEGATIVE); URINE LEUKOCYTE ESTERASE (Dip) 1+ (NEGATIVE); URINE NITRITE (Dip) NEGATIVE (NEGATIVE); URINE TOTAL PROTEIN (Dip) NEGATIVE (NEGATIVE); URINE UROBILINOGEN (Dip) 0.2 E.U./dL (0.1-1.0)
[2016-04-17 16:47] LABS: SQUAMOUS EPITHELIAL CELL,UR FEW; URINE RBCS 0-2 /HPF (0)
[2016-04-17] MEDS ORDERED: DEXTROSE 5%-LR 1,000 ML IV ONE (17:00)
--- NOTE | 2016-04-17 20:55 | QN ---
Documentation Comment 31-year-old with IUP at 32 weeks [address] Wilson was sent from the clinic today for rule out PIH due to elevated blood pressure noted in the office visits. Patient was noted to have blood pressure in the range of 140s over 90s and office visit. She never had any history of hypertension before . Her past medical history significant for history of cyclic vomiting and she had several times admission during this due to episodes of cyclic vomiting. She is an RN. She currently denies any headache, blurred vision or epigastric pain. she has been on Ativan, Zofran, amitriptyline, Zantac and vitamins during . Her symptoms are basically vomiting significantly improved with them amitriptyline and Ativan. Patient reports that all of this prior to having vomiting, has them elevated blood pressure in this range. Physical examination: General appearance: Alert and oriented 4 and is not in any acute distress Abdomen: Soft, nontender, no rebound tenderness, gravid, fundal height consistent with gestational age Extremities: No calf tenderness, no click no edema PIH labs Negative Urine without protein BPP: 09/17 ATTILA: 15.9 Ultrasound showed a normal at 32 weeks and 3 days which correlates with her current date NST: Category 1 No contractions seen on the monitor Serial blood pressure during observation in triage all blood pressure is 117- 118/61-81. She had only one episode of blood pressure 140s over 93 and the rest of the blood pressure is with above range. She is completely symptom-free PROCEDURE: US OB biophysical profile. CLINICAL INDICATION: decreased movements, PIH TECHNIQUE: Multiple sonographic images of the pelvis were obtained. The images were reviewed on a PACS workstation. COMPARISON: 02/24/2016 FINDINGS: There is a single viable intrauterine gestation. Cardiac activity is present with 145 beats per minute. There is a vertex presentation. The placenta is posterior. There is no evidence of placental abruption. There is a normal amount of amniotic fluid with an ATTILA = 15.9 cm. Biophysical profile: movement 2/2 tone 2/2. breathing 2/2 ATTILA 2/2 Total 09/17 RPTAT: AA . PROCEDURE: US OB. CLINICAL INDICATION: Size and dates , PIH TECHNIQUE: Multiple sonographic images of the pelvis and gravid uterus were obtained. The images were reviewed on a PACS workstation. COMPARISON: 02/24/2016 FINDINGS: There is a single viable intrauterine gestation. Cardiac activity is present with 155 beats per minute. There is a vertex presentation. The placenta is posterior. There is no evidence for an abruption or placenta previa. There is a normal amount of amniotic fluid with an ATTILA = 15.9 cm. Measurements were made in order to determine age. The results are as follows: BPD = 8.0 cm HC = 29.2 cm AC = 28.9 cm FL = 6.3 cm Estimated gestational age of approximately 32 weeks and 2 days based on ultrasound measurements. Clinical age: 32 weeks and 3 days. The estimated date of delivery is 06/10/16, based on ultrasound measurements. The EFW = 2003 g, 44%, based on LMP age. RPTAT: AA IMPRESSION: Single viable intrauterine gestation of approximately 32 weeks and 2 days based on ultrasound measurement IMPRESSION: Normal biophysical profile. . Assessment: IUP at 32 weeks Transient elevated blood pressure in the office visit today. No evidence of PIH. Blood pressure is monitored during observation all in normal range Patient is symptom-free Ultrasound showed normal growth consistent with gestational age testing reassuring. Patient with known history of cyclic vomiting, currently controlled with current medication. Signs and symptoms of preeclampsia discussed in detail with the patient and strict precaution was given next She was advised to check her blood pressure at home for the next 2-3 days and reported to her OB doctor office. If she has any symptoms of preeclampsia immediately to return to triage Patient is an RN. She verbalized understanding and all questions answered the patient's best satisfaction. She agreed to have a follow-up with her OB office in 2-3 days for repeat blood pressure check and OB visit SHELBY HAQUE MD Apr 17, 2016 20:55
--- NOTE | 2016-04-17 20:56 | TRIAGE ---
OB Triage Datetime Report Generated by CPN: 04/17/2016 20:56 Datetime: 04/17/2016 19:45 Stage of : OB Triage Datetime: 04/17/2016 19:44 Stage of : OB Triage Monitor Mode: External Datetime: 04/17/2016 19:31 Stage of : OB Triage Assessment Type: Triage Maternal Assessment Level of Consciousness: Fully Conscious DTR's/Clonus: DTRs 2+; No Clonus Headache: Denies Blurred Vision: No Respiratory Effort: Unlabored; Regular Rhythm; Equal Expansion Breath Sounds, Left: Clear and Equal Breath Sounds, Right: Clear and Equal Nausea/Vomiting: Denies RUQ Epigastric Pain: Denies Lower Extremities Edema: None Degree: None Upper Extremities Edema: None Degree: None Facial Edema: None Fall Risk Assessment History of Falling: (0) No Secondary Diagnosis: (0) No Ambulatory Aid: (0) Bedrest/Nurse Assist IV Therapy: (0) No Gait: (0) Normal/Bedrest/Immobile Mental Status: (0) Oriented to Own Ability Fall Score: 0 Fall Risk Score Definition: No Risk: No action required Pain Assessment Pain Scale: 0 Pain Presence: None/Denies Pain Type: N/A Datetime: 04/17/2016 19:00 Stage of : OB Triage Maternal Assessment Level of Consciousness: Fully Conscious Labor Evaluation Frequency: 3uc/hr Monitor Mode: External Duration (sec)2399: 50-70 Quality: Mild Resting [place]one [place]: Relaxed Monitor Mode: ORDERS FOR LIMITED MONITORING Pain Assessment Pain Scale: 0 Pain Goal: 3 Vaginal Exam Membrane Status: Intact Vaginal Bleeding: None Datetime: 04/17/2016 18:00 Stage of : OB Triage Maternal Assessment Level of Consciousness: Fully Conscious Labor Evaluation Frequency: OCCASIONAL Monitor Mode: External Duration (sec)2399: 30-120 Quality: Mild Resting [place]one [place]: Relaxed Monitor Mode: ORDERS FOR LIMITED MONITORING Pain Assessment Pain Scale: 0 Pain Goal: 3 Vaginal Exam Membrane Status: Intact Vaginal Bleeding: None Datetime: 04/17/2016 17:30 Stage of : OB Triage Maternal Assessment Level of Consciousness: Fully Conscious Labor Evaluation Frequency: OCCASIONAL Monitor Mode: External Duration (sec)2399: 30-120 Quality: Mild Resting [place]: Relaxed Heart Rate FHR Baseline Rate: 145 Monitor Mode: External US Variability: Moderate 6-25 bpm Accelerations: 15X15 Decelerations: None Pain Assessment Pain Scale: 0 Pain Goal: 3 Vaginal Exam Membrane Status: Intact Vaginal Bleeding: None Datetime: 04/17/2016 16:30 Stage of : OB Triage Maternal Assessment Level of Consciousness: Fully Conscious Labor Evaluation Frequency: OCCASIONAL Monitor Mode: External Duration (sec)2399: 30-120 Quality: Mild Resting [place]: Relaxed Heart Rate FHR Baseline Rate: 145 Monitor Mode: External US Variability: Moderate 6-25 bpm Accelerations: 15X15 Decelerations: None Pain Assessment Pain Scale: 0 Pain Goal: 3 Vaginal Exam Membrane Status: Intact Vaginal Bleeding: None Datetime: 04/17/2016 15:34 Stage of : OB Triage Assessment Type: Triage Maternal Assessment Level of Consciousness: Fully Conscious DTR's/Clonus: DTRs 2+; No Clonus Headache: Denies Blurred Vision: No Respiratory Effort: Unlabored; Regular Rhythm; Equal Expansion Breath Sounds, Left: Clear and Equal Breath Sounds, Right: Clear and Equal Nausea/Vomiting: Denies RUQ Epigastric Pain: Denies Lower Extremities Edema: None Degree: None Upper Extremities Edema: None Degree: None Facial Edema: None Temperature Route: Oral Fall Risk Assessment History of Falling: (0) No Secondary Diagnosis: (0) No Ambulatory Aid: (0) Bedrest/Nurse Assist IV Therapy: (0) No Gait: (0) Normal/Bedrest/Immobile Mental Status: (0) Oriented to Own Ability Fall Score: 0 Fall Risk Score Definition: No Risk: No action required Monitor Mode: External Monitor Mode: External US Pain Assessment Pain Scale: 0 Datetime: 04/17/2016 15:28 Time of Arrival: 04/17/2016 15:28 EGA: 32.3 Arrived By: Ambulatory Arrived From: Office Chief Complaint: NAUSEA AND VOMITING Movement: Present Contractions: Denies/Absent Rupture of Membranes: Denies Vaginal Bleeding: None Vaginal Discharge: Denies Recent Sexual Intercouse: Denies Patient Complaints: Nausea; Vomiting Additional Patient Complaints: HIGH BLOOD PRESSURE Time Provider Notified: 04/17/2016 15:28 Provider Notified: KENNETH Initial Plan: PIH PANEL, U/S EFW, BPP, IV D5LR, ZOFRAN IVPB, ATIVAN 1MG IV, Datetime: 03/28/2016 21:17 Labor Evaluation Frequency: 0 Monitor Mode: External Duration (sec)2399: 0 Resting [place]one [place]: Relaxed Heart Rate FHR Baseline Rate: 145 Monitor Mode: External US Variability: Moderate 6-25 bpm Accelerations: 15X15 Decelerations: None Category: Category I Comments: NST COMPLETED AT THIS TIME. Datetime: 03/28/2016 20:24 Assessment Type: Ongoing Assessment Maternal Assessment Level of Consciousness: Fully Conscious DTR's/Clonus: DTRs 2+; No Clonus Headache: Denies Blurred Vision: No Respiratory Effort: Unlabored Breath Sounds, Left: Clear and Equal Breath Sounds, Right: Clear and Equal Nausea/Vomiting: Denies RUQ Epigastric Pain: Denies Lower Extremities Edema: None Degree: None Upper Extremities Edema: None Degree: None Facial Edema: None Fall Risk Assessment History of Falling: (0) No Secondary Diagnosis: (0) No Ambulatory Aid: (0) Bedrest/Nurse Assist IV Therapy: (0) No Gait: (0) Normal/Bedrest/Immobile Mental Status: (0) Oriented to Own Ability Fall Score: 0 Fall Risk Score Definition: No Risk: No action required Datetime: 03/28/2016 20:04 Monitor Mode: External Contraction Comments: placed nst started. Monitor Mode: External US Comments: placed nst started Datetime: 03/28/2016 19:25 Stage of : Antepartum Datetime: 03/28/2016 17:35 Stage of : Antepartum Datetime: 03/28/2016 16:00 Stage of : Antepartum Pain Assessment Pain Scale: 0 Pain Presence: None/Denies Pain Goal: 3 Datetime: 03/28/2016 13:00 Pain Assessment Pain Scale: 0 Pain Presence: None/Denies Pain Goal: 3 Datetime: 03/28/2016 12:00 Stage of : Antepartum Pain Assessment Pain Scale: 0 Pain Presence: None/Denies Pain Goal: 3 Datetime: 03/28/2016 10:00 Stage of : Antepartum Labor Evaluation Frequency: NONE Monitor Mode: External Resting [place]one [place]: Relaxed Heart Rate FHR Baseline Rate: 140 FHR Baseline Changes: No Baseline Change Variability: Moderate 6-25 bpm Accelerations: 15X15 Decelerations: None Category: Category I Pain Assessment Pain Scale: 0 Pain Presence: None/Denies Pain Goal: 3 Datetime: 03/28/2016 09:00 Stage of : Antepartum Datetime: 03/28/2016 08:00 Stage of : Antepartum Pain Assessment Pain Scale: 0 Pain Presence: None/Denies Pain Goal: 3 Datetime: 03/28/2016 07:59 Assessment Type: Ongoing Assessment Maternal Assessment Level of Consciousness: Fully Conscious DTR's/Clonus: DTRs 2+; No Clonus Headache: Denies Blurred Vision: No Respiratory Effort: Unlabored; Regular Rhythm; Equal Expansion Breath Sounds, Left: Clear and Equal Breath Sounds, Right: Clear and Equal Nausea/Vomiting: Denies RUQ Epigastric Pain: Denies Lower Extremities Edema: None Degree: None Upper Extremities Edema: None Degree: None Facial Edema: None Fall Risk Assessment History of Falling: (0) No Secondary Diagnosis: (0) No Ambulatory Aid: (0) Bedrest/Nurse Assist IV Therapy: (0) No Gait: (0) Normal/Bedrest/Immobile Mental Status: (0) Oriented to Own Ability Fall Score: 0 Fall Risk Score Definition: No Risk: No action required Datetime: 03/28/2016 07:15 Stage of : Antepartum Datetime: 03/27/2016 20:38 Labor Evaluation Frequency: None Monitor Mode: External Resting [place]one [place]: Relaxed Heart Rate FHR Baseline Rate: 150 Monitor Mode: External US FHR Baseline Changes: No Baseline Change Variability: Moderate 6-25 bpm Accelerations: 15X15 Decelerations: None Category: Category I Comments: EFM off. FHR reactive and reassuring with +FM noted. EFM and toco off. Datetime: 03/27/2016 19:54 Comments: EFM on. Datetime: 03/27/2016 19:46 Assessment Type: Ongoing Assessment Maternal Assessment Level of Consciousness: Fully Conscious DTR's/Clonus: DTRs 2+; No Clonus Headache: Denies Blurred Vision: No Respiratory Effort: Unlabored; Regular Rhythm; Equal Expansion Breath Sounds, Left: Clear and Equal Breath Sounds, Right: Clear and Equal Nausea/Vomiting: Denies RUQ Epigastric Pain: Denies Lower Extremities Edema: None Degree: None Upper Extremities Edema: None Degree: None Facial Edema: None Fall Risk Assessment History of Falling: (0) No Secondary Diagnosis: (0) No Ambulatory Aid: (0) Bedrest/Nurse Assist IV Therapy: (20) Yes Gait: (0) Normal/Bedrest/Immobile Mental Status: (0) Oriented to Own Ability Fall Score: 20 Fall Risk Score Definition: No Risk: No action required Datetime: 03/27/2016 19:44 Stage of : Antepartum Temperature Route: Oral Datetime: 03/27/2016 19:07 Stage of : Antepartum Datetime: 03/27/2016 15:54 Pain Assessment Pain Scale: 0 Pain Presence: None/Denies Pain Goal: 3 Datetime: 03/27/2016 13:00 Stage of : Antepartum Datetime: 03/27/2016 09:30 Stage of : Antepartum Datetime: 03/27/2016 08:39 Stage of : Antepartum Datetime: 03/27/2016 07:36 Stage of : Antepartum Labor Evaluation Frequency: NONE Monitor Mode: External Resting [place]one [place]: Relaxed Heart Rate FHR Baseline Rate: 140 Monitor Mode: External US FHR Baseline Changes: No Baseline Change Variability: Moderate 6-25 bpm Accelerations: 10X10 Decelerations: None Category: Category I Pain Assessment Pain Scale: 0 Pain Presence: None/Denies Pain Goal: 3 Datetime: 03/27/2016 07:34 Assessment Type: Ongoing Assessment Maternal Assessment Level of Consciousness: Fully Conscious DTR's/Clonus: DTRs 2+; No Clonus Headache: Denies Blurred Vision: No Respiratory Effort: Unlabored; Regular Rhythm; Equal Expansion Breath Sounds, Left: Clear and Equal Breath Sounds, Right: Clear and Equal Nausea/Vomiting: Denies RUQ Epigastric Pain: Denies Lower Extremities Edema: None Degree: None Upper Extremities Edema: None Degree: None Facial Edema: None Fall Risk Assessment History of Falling: (0) No Secondary Diagnosis: (0) No Ambulatory Aid: (0) Bedrest/Nurse Assist IV Therapy: (0) No Gait: (0) Normal/Bedrest/Immobile Mental Status: (0) Oriented to Own Ability Fall Score: 0 Fall Risk Score Definition: No Risk: No action required Datetime: 03/27/2016 04:27 Pain Presence: None/Denies Datetime: 03/26/2016 20:46 Labor Evaluation Frequency: 0 Monitor Mode: External Resting [place]one [place]: Relaxed Heart Rate FHR Baseline Rate: 150 Monitor Mode: External US Variability: Moderate 6-25 bpm Accelerations: 15X15 Decelerations: None Category: Category I Comments: nst done reactive strip. Pain Presence: None/Denies Pain Type: N/A Datetime: 03/26/2016 19:58 Monitor Mode: External Contraction Comments: PLACED NST STARTED. Monitor Mode: External US Comments: NST STARTED. Datetime: 03/26/2016 19:54 Stage of : Antepartum Assessment Type: Ongoing Assessment Maternal Assessment Level of Consciousness: Fully Conscious DTR's/Clonus: DTRs 2+; No Clonus Headache: Denies Blurred Vision: No Respiratory Effort: Unlabored; Regular Rhythm; Equal Expansion Breath Sounds, Left: Clear and Equal Breath Sounds, Right: Clear and Equal Nausea/Vomiting: Denies RUQ Epigastric Pain: Denies Facial Edema: None Fall Risk Assessment History of Falling: (0) No Secondary Diagnosis: (0) No Ambulatory Aid: (0) Bedrest/Nurse Assist IV Therapy: (0) No Gait: (0) Normal/Bedrest/Immobile Mental Status: (0) Oriented to Own Ability Fall Score: 0 Fall Risk Score Definition: No Risk: No action required Pain Presence: None/Denies Datetime: 03/26/2016 09:13 Labor Evaluation Frequency: ONE NOTED Monitor Mode: External Duration (sec)2399: 60 Pattern: Normal: <= 5 Contractions in 10 Minutes Resting [place]one [place]: Relaxed Contraction Comments: PT DENIES FEELING ANY UC'S Heart Rate FHR Baseline Rate: 140 Monitor Mode: External US FHR Baseline Changes: No Baseline Change Variability: Moderate 6-25 bpm Accelerations: 15X15 Decelerations: None Category: Category I Datetime: 03/26/2016 09:01 Assessment Type: Ongoing Assessment Maternal Assessment Level of Consciousness: Fully Conscious DTR's/Clonus: DTRs 2+; No Clonus Headache: Denies Blurred Vision: No Respiratory Effort: Unlabored; Regular Rhythm; Equal Expansion Breath Sounds, Left: Clear and Equal Breath Sounds, Right: Clear and Equal Nausea/Vomiting: Denies RUQ Epigastric Pain: Denies Lower Extremities Edema: None Degree: None Upper Extremities Edema: None Facial Edema: None Fall Risk Assessment History of Falling: (0) No Secondary Diagnosis: (0) No Ambulatory Aid: (0) Bedrest/Nurse Assist IV Therapy: (20) Yes Gait: (0) Normal/Bedrest/Immobile Mental Status: (0) Oriented to Own Ability Fall Score: 20 Fall Risk Score Definition: No Risk: No action required Datetime: 03/26/2016 08:20 Headache: Denies Blurred Vision: No RUQ Epigastric Pain: Denies Facial Edema: None Datetime: 03/26/2016 06:14 Stage of : Antepartum Maternal Assessment Level of Consciousness: Fully Conscious Maternal Assessment Level of Consciousness: Fully Conscious Nausea/Vomiting: Present Temperature Route: Oral Pain Assessment Pain Scale: 0 Pain Presence: None/Denies Pain Type: N/A Pain Goal: 3 Pain Relief Measures: Comfort Measures Datetime: 03/26/2016 05:43 Stage of : Antepartum Maternal Assessment Level of Consciousness: Fully Conscious Maternal Assessment Level of Consciousness: Fully Conscious Nausea/Vomiting: Present Pain Assessment Pain Scale: 0 Pain Presence: None/Denies Pain Type: N/A Pain Goal: 3 Pain Relief Measures: Comfort Measures Datetime: 03/26/2016 04:45 Stage of : Antepartum Maternal Assessment Level of Consciousness: Fully Conscious Nausea/Vomiting: Present Pain Assessment Pain Scale: 0 Pain Presence: None/Denies Pain Type: N/A Pain Goal: 3 Pain Relief Measures: Comfort Measures Datetime: 03/26/2016 03:45 Stage of : Antepartum Maternal Assessment Level of Consciousness: Fully Conscious Nausea/Vomiting: Present Pain Assessment Pain Scale: 0 Pain Presence: None/Denies Pain Type: N/A Pain Goal: 3 Pain Relief Measures: Comfort Measures Datetime: 03/26/2016 02:45 Stage of : Antepartum Maternal Assessment Level of Consciousness: Fully Conscious Nausea/Vomiting: Present Monitor Mode: External US Pain Assessment Pain Scale: 0 Pain Presence: None/Denies Pain Type: N/A Pain Goal: 3 Pain Relief Measures: Comfort Measures Datetime: 03/26/2016 01:45 Stage of : Antepartum Maternal Assessment Level of Consciousness: Fully Conscious Nausea/Vomiting: Present Monitor Mode: External US Pain Assessment Pain Scale: 0 Pain Presence: None/Denies Pain Type: N/A Pain Goal: 3 Pain Relief Measures: Comfort Measures Datetime: 03/26/2016 00:45 Stage of : Antepartum Maternal Assessment Level of Consciousness: Fully Conscious Nausea/Vomiting: Present Monitor Mode: External US Pain Assessment Pain Scale: 0 Pain Presence: None/Denies Pain Type: N/A Pain Goal: 3 Pain Relief Measures: Comfort Measures Datetime: 03/25/2016 23:55 Stage of : Antepartum Datetime: 03/25/2016 23:46 Stage of : Antepartum Maternal Assessment Level of Consciousness: Fully Conscious Nausea/Vomiting: Present Monitor Mode: External US Pain Assessment Pain Scale: 0 Pain Presence: None/Denies Pain Type: N/A Pain Goal: 3 Pain Relief Measures: Comfort Measures Datetime: 03/25/2016 23:16 Temperature Route: Oral Datetime: 03/25/2016 22:30 Stage of : Antepartum Maternal Assessment Level of Consciousness: Fully Conscious DTR's/Clonus: DTRs 2+; No Clonus Headache: Denies Breath Sounds, Left: Clear and Equal Breath Sounds, Right: Clear and Equal Nausea/Vomiting: Present RUQ Epigastric Pain: Denies Monitor Mode: External US Pain Assessment Pain Scale: 0 Pain Presence: None/Denies Pain Type: N/A Pain Goal: 3 Pain Relief Measures: Comfort Measures Datetime: 03/25/2016 21:41 Stage of : Antepartum Datetime: 03/25/2016 21:30 Stage of : Antepartum Maternal Assessment Level of Consciousness: Fully Conscious DTR's/Clonus: DTRs 2+; No Clonus Headache: Denies Breath Sounds, Left: Clear and Equal Breath Sounds, Right: Clear and Equal Nausea/Vomiting: Present RUQ Epigastric Pain: Denies Labor Evaluation Frequency: 0 Monitor Mode: External Duration (sec)2399: 0 Pattern: Normal: <= 5 Contractions in 10 Minutes Resting [place]one [place]: Relaxed Heart Rate FHR Baseline Rate: 155 Heart Rate FHR Baseline Rate: 150 Monitor Mode: External US FHR Baseline Changes: No Baseline Change Variability: Moderate 6-25 bpm Accelerations: 15X15 Decelerations: None Pain Assessment Pain Scale: 0 Pain Presence: None/Denies Pain Type: N/A Pain Goal: 3 Pain Relief Measures: Comfort Measures Datetime: 03/25/2016 20:26 Stage of : Antepartum Maternal Assessment Level of Consciousness: Fully Conscious DTR's/Clonus: DTRs 2+; No Clonus Headache: Denies Breath Sounds, Left: Clear and Equal Breath Sounds, Right: Clear and Equal Nausea/Vomiting: Present RUQ Epigastric Pain: Denies Labor Evaluation Frequency: 0 Monitor Mode: External Duration (sec)2399: 0 Pattern: Normal: <= 5 Contractions in 10 Minutes Resting [place]one [place]: Relaxed Heart Rate FHR Baseline Rate: 155 Heart Rate FHR Baseline Rate: 150 Monitor Mode: External US FHR Baseline Changes: No Baseline Change Variability: Moderate 6-25 bpm Accelerations: 15X15 Decelerations: None Pain Assessment Pain Scale: 0 Pain Presence: None/Denies Pain Type: N/A Pain Goal: 3 Pain Relief Measures: Comfort Measures Datetime: 03/25/2016 19:26 Stage of : Antepartum Maternal Assessment Level of Consciousness: Fully Conscious DTR's/Clonus: DTRs 2+; No Clonus Headache: Denies Breath Sounds, Left: Clear and Equal Breath Sounds, Right: Clear and Equal Nausea/Vomiting: Present RUQ Epigastric Pain: Denies Temperature Route: Oral Labor Evaluation Frequency: 0 Monitor Mode: External Duration (sec)2399: 0 Pattern: Normal: <= 5 Contractions in 10 Minutes Resting [place]one [place]: Relaxed Heart Rate FHR Baseline Rate: 155 Heart Rate FHR Baseline Rate: 150 Monitor Mode: External US FHR Baseline Changes: No Baseline Change Variability: Moderate 6-25 bpm Accelerations: 15X15 Decelerations: None Pain Assessment Pain Scale: 0 Pain Presence: None/Denies Pain Type: N/A Pain Goal: 3 Pain Relief Measures: Comfort Measures Datetime: 03/25/2016 13:00 Labor Evaluation Frequency: 0 Monitor Mode: External Duration (sec)2399: 0 Pattern: Normal: <= 5 Contractions in 10 Minutes Resting [place]one [place]: Relaxed Heart Rate FHR Baseline Rate: 150 Monitor Mode: External US FHR Baseline Changes: No Baseline Change Variability: Moderate 6-25 bpm Accelerations: 15X15 Decelerations: None Category: Category I Datetime: 03/25/2016 12:42 Assessment Type: Admission Assessment Vaginal Bleeding: None Maternal Assessment Level of Consciousness: Fully Conscious DTR's/Clonus: DTRs 2+; No Clonus Headache: Denies Blurred Vision: No Respiratory Effort: Unlabored; Regular Rhythm; Equal Expansion Breath Sounds, Left: Clear and Equal Breath Sounds, Right: Clear and Equal Nausea/Vomiting: Present RUQ Epigastric Pain: Denies Lower Extremities Edema: None Degree: None Upper Extremities Edema: None Degree: None Facial Edema: None Fall Risk Assessment History of Falling: (0) No Secondary Diagnosis: (0) No Ambulatory Aid: (0) Bedrest/Nurse Assist IV Therapy: (0) No Gait: (0) Normal/Bedrest/Immobile Mental Status: (0) Oriented to Own Ability Fall Score: 0 Fall Risk Score Definition: No Risk: No action required Datetime: 03/25/2016 11:35 Fall Score: 0 Fall Risk Score Definition: No Risk: No action required Datetime: 03/25/2016 11:33 EGA: 29.1 Arrived From: Other Unit in Hospital Datetime: 03/22/2016 08:00 Fall Score: 0 Fall Risk Score Definition: No Risk: No action required Datetime: 03/21/2016 19:27 Fall Score: 0 Fall Risk Score Definition: No Risk: No action required Datetime: 03/21/2016 07:37 Fall Score: 0 Fall Risk Score Definition: No Risk: No action required Datetime: 03/20/2016 19:37 Fall Score: 0 Fall Risk Score Definition: No Risk: No action required Datetime: 03/20/2016 07:43 Fall Score: 20 Fall Risk Score Definition: No Risk: No action required Datetime: 03/19/2016 19:45 Fall Score: 0 Fall Risk Score Definition: No Risk: No action required Datetime: 03/18/2016 19:23 Fall Score: 0 Fall Risk Score Definition: No Risk: No action required Datetime: 03/17/2016 19:12 Fall Score: 20 Fall Risk Score Definition: No Risk: No action required Datetime: 03/16/2016 20:14 Fall Score: 0 Fall Risk Score Definition: No Risk: No action required Datetime: 03/16/2016 08:14 Fall Score: 0 Fall Risk Score Definition: No Risk: No action required Datetime: 03/15/2016 19:40 Fall Score: 0 Fall Risk Score Definition: No Risk: No action required Datetime: 03/15/2016 09:25 Fall Score: 20 Fall Risk Score Definition: No Risk: No action required Datetime: 03/14/2016 21:45 Fall Score: 0 Fall Risk Score Definition: No Risk: No action required Datetime: 03/14/2016 18:05 Fall Score: 0 Fall Risk Score Definition: No Risk: No action required Datetime: 03/14/2016 18:00 EGA: 27.4 Datetime: 03/13/2016 19:51 Fall Score: 20 Fall Risk Score Definition: No Risk: No action required Datetime: 03/12/2016 19:47 Fall Score: 0 Fall Risk Score Definition: No Risk: No action required Datetime: 03/12/2016 08:45 Fall Score: 0 Fall Risk Score Definition: No Risk: No action required Datetime: 03/11/2016 19:54 Fall Score: 20 Fall Risk Score Definition: No Risk: No action required Datetime: 03/11/2016 08:10 Fall Score: 0 Fall Risk Score Definition: No Risk: No action required Datetime: 03/10/2016 21:01 Fall Score: 0 Fall Risk Score Definition: No Risk: No action required Datetime: 03/10/2016 19:07 Fall Score: 0 Fall Risk Score Definition: No Risk: No action required Datetime: 03/10/2016 18:50 EGA: 27.0 Datetime: 02/26/2016 19:31 Fall Score: 0 Fall Risk Score Definition: No Risk: No action required Datetime: 02/26/2016 07:47 Fall Score: 20 Fall Risk Score Definition: No Risk: No action required Datetime: 02/25/2016 19:49 Fall Score: 0 Fall Risk Score Definition: No Risk: No action required Datetime: 02/25/2016 07:05 Fall Score: 20 Fall Risk Score Definition: No Risk: No action required Datetime: 02/24/2016 19:50 Fall Score: 20 Fall Risk Score Definition: No Risk: No action required Datetime: 02/24/2016 09:05 Fall Score: 0 Fall Risk Score Definition: No Risk: No action required Datetime: 02/24/2016 04:40 Fall Score: 0 Fall Risk Score Definition: No Risk: No action required Datetime: 02/24/2016 02:04 EGA: 24.6 Datetime: 02/24/2016 02:02 Fall Score: 0 Fall Risk Score Definition: No Risk: No action required Datetime: 01/31/2016 21:24 Fall Score: 0 Fall Risk Score Definition: No Risk: No action required Datetime: 01/31/2016 08:00 Fall Score: 0 Fall Risk Score Definition: No Risk: No action required Datetime: 01/30/2016 19:25 Fall Score: 20 Fall Risk Score Definition: No Risk: No action required Datetime: 01/30/2016 08:00 Fall Score: 0 Fall Risk Score Definition: No Risk: No action required Datetime: 01/29/2016 19:37 Fall Score: 0 Fall Risk Score Definition: No Risk: No action required Datetime: 01/29/2016 08:10 Fall Score: 0 Fall Risk Score Definition: No Risk: No action required Datetime: 01/28/2016 21:05 Fall Score: 0 Fall Risk Score Definition: No Risk: No action required Datetime: 01/27/2016 21:17 Fall Score: 0 Fall Risk Score Definition: No Risk: No action required Datetime: 01/27/2016 08:17 Fall Score: 0 Fall Risk Score Definition: No Risk: No action required Datetime: 01/26/2016 19:55 Fall Score: 0 Fall Risk Score Definition: No Risk: No action required Datetime: 01/26/2016 08:03 Fall Score: 0 Fall Risk Score Definition: No Risk: No action required Datetime: 01/25/2016 20:57 Fall Score: 0 Fall Risk Score Definition: No Risk: No action required Datetime: 01/25/2016 08:00 Fall Score: 20 Fall Risk Score Definition: No Risk: No action required Datetime: 01/24/2016 23:07 Fall Score: 0 Fall Risk Score Definition: No Risk: No action required Datetime: 12/17/2015 19:42 Fall Score: 0 Fall Risk Score Definition: No Risk: No action required Datetime: 12/17/2015 08:00 Fall Score: 20 Fall Risk Score Definition: No Risk: No action required Datetime: 12/16/2015 19:51 Fall Score: 0 Fall Risk Score Definition: No Risk: No action required Datetime: 12/16/2015 10:00 Fall Score: 20 Fall Risk Score Definition: No Risk: No action required Datetime: 12/15/2015 19:37 Fall Score: 20 Fall Risk Score Definition: No Risk: No action required Datetime: 12/15/2015 08:34 Fall Score: 20 Fall Risk Score Definition: No Risk: No action required Datetime: 12/14/2015 19:43 Fall Score: 20 Fall Risk Score Definition: No Risk: No action required Datetime: 12/14/2015 16:00 Fall Score: 20 Fall Risk Score Definition: No Risk: No action required Datetime: 12/14/2015 15:39 EGA: 20.3
--- NOTE | 2016-04-17 21:28 | TRIAGE ---
OB Triage Datetime Report Generated by CPN: 04/17/2016 21:27 Datetime: 04/17/2016 19:44 Frequency: Occasional Duration (sec)2399: 40-50 Quality: Mild Pattern: Normal: <= 5 Contractions in 10 Minutes Resting Tone Bishop: Relaxed Contraction Comments: Bishop removed Comments: Pt reports positive movt. EFM removed by JEREMIE Schumacher @[id number].
== END 2016-04-17 20:02 | disposition home or self-care (01) ==
LOC: OBT 14:29 → L-D 14:29 → OBT 20:02
PROVIDERS: ATTEND Obstetrics & Gynecology
DX: O26.893 Other specified pregnancy related conditions, third trimester (principal); R03.0 Elevated blood-pressure reading, without diagnosis of hypertension; O36.8130 Decreased fetal movements, third trimester, not applicable or unspecified; Z3A.32 32 weeks gestation of pregnancy
CPT/HCPCS: 36415; 76815; 76818; 80053; 81001; 84560; 85025; 85384; 85610; 85730; 96360; 96361; G0463; J2060; J2405; J7120; J7121; 81003

== ENCOUNTER 2016-04-19 05:42 | Inpatient (IN) | payer BC ==
[~2016-04-19] VITALS: Ht 160 cm; Wt 53.6 kg
[2016-04-19 05:49] VITALS: Ht 160 cm; Wt 53.6 kg
[2016-04-19 05:51] VITALS: BP 162/98; PULSE 106; RESP 18
--- NOTE | 2016-04-19 06:39 | TRIAGE ---
OB Triage Datetime Report Generated by CPN: 04/19/2016 06:38 Datetime: 04/19/2016 05:54 Time of Arrival: 04/19/2016 05:40 Arrived By: Ambulatory Arrived From: Emergency Dept Chief Complaint: PT C/O N/V (Annotations: Data stored by [facility] on behalf of user) Movement: Present Contractions: Denies/Absent Patient Complaints: Cramping; Nausea; Vomiting Additional Patient Complaints: INITIAL PHYSICAL ASSESSMENT. TOCO AND EFM APPLIED Time Provider Notified: 04/19/2016 06:18 Provider Notified: DR COOPER
[2016-04-19] MEDS: DEXTROSE 5%-LR 1,000 ML IV SCH ×3 (07:31→23:50)
[2016-04-19] MEDS: LORAZEPAM 2 MG INJ IV PRN ×3 (07:34→19:36)
[2016-04-19] MEDS: ONDANSETRON INJ 8 MG in DEXTROSE 5% 50 ML IV PRN ×3 (07:39→19:18)
--- NOTE | 2016-04-19 20:22 | QN ---
Documentation Comment HISTORY AND PHYSICAL HISTORY OF PRESENT ILLNESS: The patient is a 31-year-old 1, last menstrual period 08/24/2015 with estimated date of confinement of 06/09/2016 with an intrauterine at 32 weeks. The patient has a known history of cyclical vomiting syndrome that she has had her whole life and she did fine for 3 years prior to . During this , she has had multiple exacerbations of this condition. This is her 9th admission. Initially, it was once a month and then it became a little more frequent. It has been 3 weeks since her prior admission. During a prior admission, we had a GI consultation and was initiated her on co-Q10 and Elavil, which is not normally recommended in , but we are trying it to get her through this difficult time and stop it hopefully around 36 weeks to get out of the system before the baby is born. Normally, during exacerbations, Ativan helps significantly. On prior admissions, we have given her Ativan, Zofran, Diclegis, and Pepcid. Now she has been on Elavil every night. Of note, with this admission, she is not as sick as usually is. She has vomited 6 times before coming in in a short period of time. Came in and started on IV hydration, IV Zofran, Diclegis, and then Ativan and she actually does not look too bad, although she is obviously not eating anything. I believe the Elavil is has helped some. Her blood pressures also normally rise significantly during the exacerbation and then normalize completely as she improves. Pt was in OB triage 2 days ago when she felt like a bout was cooming on and she was hydrated, medicated and upon normalization of her BP's and she was feeling much better she was sent home. PAST MEDICAL HISTORY: None other than the cyclical vomiting syndrome. PAST SURGICAL HISTORY: None. ALLERGIES: PENICILLIN. MEDICATIONS: 1. Ativan. 2. Zofran. 3. Diclegis. 4. Pepcid. 5. Now the Elavil 100 mg at bedtime. 6. She takes Boost at home, as this is something that agrees with her instead of vitamins, as she cannot take vitamins at this point. LABORATORY DATA: Pt had an entire evaluation 2 days prior as when she has an exacerbation her BP's rise significantly and as she improves, they normalize. US 04/17 EFW 2003 grams or S=D. VTX. ATTILA 15.9. PHYSICAL EXAMINATION: BP 162/98 T=97.8 LUNGS: Clear to auscultation. HEART: Regular rate and rhythm. ABDOMEN: Soft, nontender, gravid. PELVIC: Deferred. EXTREMITIES: Nontender. No edema. ASSESSMENT: 1. Intrauterine at 32 weeks. 2. Cyclical vomiting syndrome. Meds: Elavil 100 mg daily, Pepcid, Ativan 2 mg q. 6 p.r.n., Zofran 8 mg, IV hydration, and passage of time. ANIRUDH COOPER MD Apr 19, 2016 20:22
[2016-04-19] MEDS ORDERED: AMITRIPTYLINE 25 MG TAB PO SCH (21:00)
[2016-04-20] MEDS: LORAZEPAM 2 MG INJ IV PRN (01:20)
[2016-04-20] MEDS: ONDANSETRON INJ 8 MG in DEXTROSE 5% 50 ML IV PRN (01:51)
[2016-04-20] MEDS: DEXTROSE 5%-LR 1,000 ML IV SCH (06:23)
--- NOTE | 2016-04-20 16:41 | PD.PPDC ---
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
--- NOTE | 2016-04-20 17:03 | QN ---
Documentation Comment This is a 31 years 32 weeks ,ninth admission to the hospital for cyclic vomiting syndrome currently on several anti vomiting medication including co-Q10 , Elavil, ATIVAN, Zofran, doing better today would like to be discharged home , Dr. COOPER notified she ordered to discharge patient , continue present treatment at home, to make appointment within 1 week to be seen at her office TAI SCHAEFER MD Apr 20, 2016 17:01
== END 2016-04-20 17:25 | disposition home or self-care (01) | DRG 781 ==
LOC: OBT 05:42 → L-D 05:42 → OBG 06:20 → OBT 06:20
PROVIDERS: ADMIT Obstetrics & Gynecology; ATTEND Obstetrics & Gynecology
DX: O21.2 Late vomiting of pregnancy (principal); Z3A.32 32 weeks gestation of pregnancy
CPT/HCPCS: G0463; J2060; J2405; J7121

== ENCOUNTER 2016-04-21 00:58 | Inpatient (IN) | payer BC ==
[~2016-04-21] VITALS: Ht 160 cm; Wt 54.0 kg
--- NOTE | 2016-04-21 03:21 | TRIAGE ---
OB Triage Datetime Report Generated by CPN: 04/21/2016 03:19 Datetime: 04/21/2016 03:13 Time of Arrival: 04/21/2016 00:55 EGA: 33.0 Arrived By: Wheelchair Arrived From: Home Chief Complaint: c/o n/v and abd cramping Movement: Present Contractions: Irregular Time Contractions Began: 04/21/2016 19:00 Rupture of Membranes: Denies Vaginal Bleeding: None Vaginal Discharge: Denies Recent Sexual Intercouse: Denies Abdominal Trauma: Not Applicable Patient Complaints: Cramping Time Provider Notified: 04/21/2016 01:58 Provider Notified: Dr Smalls Initial Plan: EFM Datetime: 04/20/2016 16:44 Labor Evaluation Frequency: 0 Monitor Mode: External Resting Tone [place]: Relaxed Heart Rate FHR Baseline Rate: 140 Monitor Mode: External US FHR Baseline Changes: No Baseline Change Variability: Moderate 6-25 bpm Accelerations: 15X15 Decelerations: None Category: Category I Datetime: 04/20/2016 16:40 Stage of : Antepartum Datetime: 04/20/2016 16:00 Labor Evaluation Frequency: 0 Monitor Mode: External Heart Rate FHR Baseline Rate: 140 Monitor Mode: External US FHR Baseline Changes: No Baseline Change Variability: Moderate 6-25 bpm Accelerations: 15X15 Decelerations: None Category: Category I Datetime: 04/20/2016 15:32 Stage of : Antepartum Datetime: 04/20/2016 15:26 Stage of : Antepartum Temperature Route: Oral Pain Presence: None/Denies Pain Goal: 0 Datetime: 04/20/2016 15:20 Labor Evaluation Frequency: 0 Monitor Mode: External Resting Tone [place]: Relaxed Heart Rate FHR Baseline Rate: 140 Monitor Mode: External US FHR Baseline Changes: No Baseline Change Variability: Moderate 6-25 bpm Accelerations: 15X15 Decelerations: None Category: Category I Datetime: 04/20/2016 14:00 Labor Evaluation Frequency: 0 Monitor Mode: External Resting Tone [place]: Relaxed Heart Rate FHR Baseline Rate: 140 Monitor Mode: External US FHR Baseline Changes: No Baseline Change Variability: Moderate 6-25 bpm Accelerations: 15X15 Decelerations: None Category: Category I Datetime: 04/20/2016 13:00 Labor Evaluation Frequency: 0 Monitor Mode: External Heart Rate FHR Baseline Rate: 150 Monitor Mode: External US FHR Baseline Changes: No Baseline Change Variability: Moderate 6-25 bpm Accelerations: 15X15 Decelerations: None Category: Category I Datetime: 04/20/2016 12:07 Labor Evaluation Frequency: 0 Monitor Mode: External Resting Tone [place]: Relaxed Heart Rate FHR Baseline Rate: 140 Monitor Mode: External US FHR Baseline Changes: No Baseline Change Variability: Moderate 6-25 bpm Accelerations: 15X15 Decelerations: None Category: Category I Datetime: 04/20/2016 11:55 Stage of : Antepartum Datetime: 04/20/2016 11:00 Labor Evaluation Frequency: 0 Monitor Mode: External Heart Rate FHR Baseline Rate: 140 Monitor Mode: External US FHR Baseline Changes: No Baseline Change Variability: Moderate 6-25 bpm Accelerations: 15X15 Decelerations: None Category: Category I Datetime: 04/20/2016 09:58 Labor Evaluation Frequency: 0 Monitor Mode: External Heart Rate FHR Baseline Rate: 140 Monitor Mode: External US FHR Baseline Changes: No Baseline Change Variability: Moderate 6-25 bpm Accelerations: 15X15 Decelerations: None Category: Category I Datetime: 04/20/2016 08:30 Labor Evaluation Frequency: 0 Monitor Mode: External Heart Rate FHR Baseline Rate: 140 Monitor Mode: External US FHR Baseline Changes: No Baseline Change Variability: Moderate 6-25 bpm Accelerations: 15X15 Decelerations: None Category: Category I Datetime: 04/20/2016 07:51 Assessment Type: Ongoing Assessment Maternal Assessment Level of Consciousness: Fully Conscious DTR's/Clonus: DTRs 2+; No Clonus Headache: Denies Blurred Vision: No Respiratory Effort: Unlabored; Regular Rhythm; Equal Expansion Breath Sounds, Left: Clear and Equal Breath Sounds, Right: Clear and Equal Nausea/Vomiting: Denies RUQ Epigastric Pain: Denies Lower Extremities Edema: None Degree: None Upper Extremities Edema: None Degree: None Facial Edema: None Fall Risk Assessment History of Falling: (0) No Secondary Diagnosis: (0) No Ambulatory Aid: (0) Bedrest/Nurse Assist IV Therapy: (20) Yes Gait: (0) Normal/Bedrest/Immobile Mental Status: (0) Oriented to Own Ability Fall Score: 20 Fall Risk Score Definition: No Risk: No action required Datetime: 04/20/2016 07:44 Stage of : Antepartum Datetime: 04/20/2016 07:41 Stage of : Antepartum Labor Evaluation Frequency: 0 Monitor Mode: External Heart Rate FHR Baseline Rate: 145 Monitor Mode: External US FHR Baseline Changes: No Baseline Change Variability: Minimal - Undetectable to <=5 bpm Accelerations: 15X15 Decelerations: None Category: Category II Datetime: 04/20/2016 07:18 Stage of : Antepartum Datetime: 04/20/2016 06:40 Temperature Route: Oral Datetime: 04/20/2016 06:30 Labor Evaluation Frequency: 0 Monitor Mode: External Resting Tone [place]: Relaxed Heart Rate FHR Baseline Rate: 140 Monitor Mode: External US Variability: Moderate 6-25 bpm Accelerations: 15X15 Decelerations: None Category: Category I Pain Presence: None/Denies Pain Type: N/A Datetime: 04/20/2016 05:30 Labor Evaluation Frequency: 0 Monitor Mode: External Resting Tone [place]: Relaxed Heart Rate FHR Baseline Rate: 145 Monitor Mode: External US Variability: Moderate 6-25 bpm Accelerations: 15X15 Decelerations: None Category: Category I Pain Presence: None/Denies Pain Type: N/A Datetime: 04/20/2016 04:30 Labor Evaluation Frequency: 0 Monitor Mode: External Resting Tone [place]: Relaxed Heart Rate FHR Baseline Rate: 150 Monitor Mode: External US Variability: Moderate 6-25 bpm Accelerations: 15X15 Decelerations: None Category: Category I Datetime: 04/20/2016 03:30 Labor Evaluation Frequency: 0 Monitor Mode: External Resting Tone [place]: Relaxed Heart Rate FHR Baseline Rate: 155 Monitor Mode: External US Variability: Minimal - Undetectable to <=5 bpm Accelerations: Prolonged Decelerations: Variable Category: Category II Datetime: 04/20/2016 02:30 Labor Evaluation Frequency: 0 Monitor Mode: External Resting Tone [place]: Relaxed Heart Rate FHR Baseline Rate: 145 Monitor Mode: External US Variability: Minimal - Undetectable to <=5 bpm Accelerations: 10X10 Decelerations: None Category: Category II Datetime: 04/20/2016 01:30 Labor Evaluation Frequency: 0 Monitor Mode: External Resting Tone [place]: Relaxed Heart Rate FHR Baseline Rate: 145 Monitor Mode: External US Variability: Minimal - Undetectable to <=5 bpm Accelerations: 10X10 Decelerations: None Category: Category II Datetime: 04/20/2016 00:30 Labor Evaluation Frequency: 0 Monitor Mode: External Resting Tone [place]: Relaxed Heart Rate FHR Baseline Rate: 140 Monitor Mode: External US Variability: Moderate 6-25 bpm Accelerations: 15X15 Decelerations: None Category: Category I Pain Presence: None/Denies Pain Type: N/A Datetime: 04/19/2016 23:30 Labor Evaluation Frequency: 0 Monitor Mode: External Duration (sec)2399: denies Resting Tone [place]: Relaxed Heart Rate FHR Baseline Rate: 140 Monitor Mode: External US Variability: Moderate 6-25 bpm Accelerations: 10X10 Decelerations: None Category: Category I Pain Presence: None/Denies Pain Type: N/A Datetime: 04/19/2016 22:30 Labor Evaluation Frequency: 0 Monitor Mode: External Duration (sec)2399: denies Resting Tone [place]: Relaxed Heart Rate FHR Baseline Rate: 140 Monitor Mode: External US Variability: Moderate 6-25 bpm Accelerations: 15X15 Decelerations: None Category: Category I Comments: loss of contact,due to maternal movements. Pain Presence: None/Denies Pain Type: N/A Datetime: 04/19/2016 21:30 Labor Evaluation Frequency: 0 Monitor Mode: External Duration (sec)2399: denies Resting Tone [place]: Relaxed Heart Rate FHR Baseline Rate: 150 Monitor Mode: External US Variability: Minimal - Undetectable to <=5 bpm Accelerations: 10X10 Decelerations: None Category: Category II Pain Presence: None/Denies Pain Type: N/A Datetime: 04/19/2016 20:30 Labor Evaluation Frequency: 0 Monitor Mode: External Duration (sec)2399: denies Resting Tone [place]: Relaxed Heart Rate FHR Baseline Rate: 145 Monitor Mode: External US Variability: Moderate 6-25 bpm Accelerations: 15X15 Decelerations: None Category: Category I Pain Presence: None/Denies Pain Type: N/A Datetime: 04/19/2016 19:34 Stage of : Antepartum Assessment Type: Ongoing Assessment Maternal Assessment Level of Consciousness: Fully Conscious DTR's/Clonus: DTRs 2+; No Clonus Headache: Denies Blurred Vision: No Respiratory Effort: Unlabored; Regular Rhythm; Equal Expansion Breath Sounds, Left: Clear and Equal Breath Sounds, Right: Clear and Equal Nausea/Vomiting: Denies RUQ Epigastric Pain: Denies Degree: None Upper Extremities Edema: None Degree: None Facial Edema: None Temperature Route: Oral Fall Risk Assessment History of Falling: (0) No Secondary Diagnosis: (0) No Ambulatory Aid: (0) Bedrest/Nurse Assist IV Therapy: (0) No Gait: (0) Normal/Bedrest/Immobile Mental Status: (0) Oriented to Own Ability Fall Score: 0 Fall Risk Score Definition: No Risk: No action required Monitor Mode: External Pain Presence: None/Denies Vaginal Exam Membrane Status: Intact Datetime: 04/19/2016 18:31 Labor Evaluation Frequency: x1 Monitor Mode: External Duration (sec)2399: 50 Quality: Mild Resting Tone [place]: Relaxed Heart Rate FHR Baseline Rate: 135 Monitor Mode: External US FHR Baseline Changes: No Baseline Change Variability: Moderate 6-25 bpm Accelerations: 15X15 Decelerations: None Category: Category I Datetime: 04/19/2016 17:32 Labor Evaluation Frequency: none Monitor Mode: External Resting Tone [place]: Relaxed Heart Rate FHR Baseline Rate: 135 Monitor Mode: External US FHR Baseline Changes: No Baseline Change Variability: Moderate 6-25 bpm Accelerations: 15X15 Decelerations: None Category: Category I Datetime: 04/19/2016 16:30 Labor Evaluation Frequency: none Monitor Mode: External Resting Tone [place]: Relaxed Heart Rate FHR Baseline Rate: 135 Monitor Mode: External US FHR Baseline Changes: No Baseline Change Variability: Moderate 6-25 bpm Accelerations: 15X15 Decelerations: None Category: Category I Datetime: 04/19/2016 15:30 Labor Evaluation Frequency: x1 Monitor Mode: External Duration (sec)2399: 40 Quality: Mild Resting Tone [place]: Relaxed Heart Rate FHR Baseline Rate: 130 Monitor Mode: External US FHR Baseline Changes: No Baseline Change Variability: Moderate 6-25 bpm Accelerations: 15X15 Decelerations: None Category: Category I Datetime: 04/19/2016 14:28 Labor Evaluation Frequency: x3 Monitor Mode: External Duration (sec)2399: 40 Quality: Mild Resting Tone [place]: Relaxed Heart Rate FHR Baseline Rate: 130 Monitor Mode: External US FHR Baseline Changes: No Baseline Change Variability: Moderate 6-25 bpm Accelerations: 15X15 Decelerations: None Category: Category I Datetime: 04/19/2016 13:30 Labor Evaluation Frequency: NONE Monitor Mode: External Resting Tone [place]: Relaxed Heart Rate FHR Baseline Rate: 130 Monitor Mode: External US FHR Baseline Changes: No Baseline Change Variability: Moderate 6-25 bpm Accelerations: 15X15 Decelerations: None Category: Category I Datetime: 04/19/2016 12:24 Labor Evaluation Frequency: NONE Monitor Mode: External Resting Tone [place]: Relaxed Heart Rate FHR Baseline Rate: 135 Monitor Mode: External US FHR Baseline Changes: No Baseline Change Variability: Moderate 6-25 bpm Accelerations: 15X15 Decelerations: None Category: Category I Datetime: 04/19/2016 11:20 Labor Evaluation Frequency: none Monitor Mode: External Resting Tone [place]: Relaxed Heart Rate FHR Baseline Rate: 135 Monitor Mode: External US FHR Baseline Changes: No Baseline Change Variability: Moderate 6-25 bpm Accelerations: 15X15 Decelerations: None Category: Category I Datetime: 04/19/2016 10:20 Labor Evaluation Frequency: none Monitor Mode: External Resting Tone [place]: Relaxed Heart Rate FHR Baseline Rate: 135 Monitor Mode: External US FHR Baseline Changes: No Baseline Change Variability: Moderate 6-25 bpm Accelerations: 15X15 Decelerations: None Category: Category I Datetime: 04/19/2016 09:25 Labor Evaluation Frequency: none Monitor Mode: External Resting Tone [place]: Relaxed Heart Rate FHR Baseline Rate: 140 Monitor Mode: External US FHR Baseline Changes: No Baseline Change Variability: Moderate 6-25 bpm Accelerations: 15X15 Decelerations: Variable Comments: appropriate for [place] Datetime: 04/19/2016 08:50 Labor Evaluation Frequency: none Monitor Mode: External Resting Tone [place]: Relaxed Heart Rate FHR Baseline Rate: 140 Monitor Mode: External US FHR Baseline Changes: No Baseline Change Variability: Moderate 6-25 bpm Accelerations: 15X15 Decelerations: None Category: Category I Datetime: 04/19/2016 07:57 Assessment Type: Admission Assessment Vaginal Bleeding: None Maternal Assessment Level of Consciousness: Fully Conscious DTR's/Clonus: DTRs 2+; No Clonus Headache: Denies Blurred Vision: No Respiratory Effort: Unlabored; Regular Rhythm; Equal Expansion Breath Sounds, Left: Clear and Equal Breath Sounds, Right: Clear and Equal Nausea/Vomiting: Present RUQ Epigastric Pain: Denies Lower Extremities Edema: None Degree: None Upper Extremities Edema: None Degree: None Facial Edema: None Fall Risk Assessment History of Falling: (0) No Secondary Diagnosis: (0) No Ambulatory Aid: (0) Bedrest/Nurse Assist IV Therapy: (20) Yes Gait: (0) Normal/Bedrest/Immobile Mental Status: (0) Oriented to Own Ability Fall Score: 20 Fall Risk Score Definition: No Risk: No action required Labor Evaluation Frequency: none Contraction Comments: pt denies feeling UCs Heart Rate FHR Baseline Rate: 135 Variability: Moderate 6-25 bpm Accelerations: 15X15 Decelerations: Variable Category: appropriate for [place] Pain Assessment Pain Scale: 0 Pain Presence: None/Denies Pain Type: N/A Datetime: 04/19/2016 06:12 Stage of : OB Triage Datetime: 04/19/2016 05:54 EGA: 32.5 Datetime: 04/19/2016 05:50 Stage of : OB Triage Maternal Assessment Level of Consciousness: Fully Conscious DTR's/Clonus: DTRs 2+; No Clonus Headache: Denies Blurred Vision: No Respiratory Effort: Unlabored; Regular Rhythm Breath Sounds, Left: Clear and Equal Breath Sounds, Right: Clear and Equal Nausea/Vomiting: Present RUQ Epigastric Pain: Denies Lower Extremities Edema: None Upper Extremities Edema: None Facial Edema: None Labor Evaluation Frequency: NONE Monitor Mode: External Heart Rate FHR Baseline Rate: 130 Monitor Mode: External US Variability: Moderate 6-25 bpm Accelerations: 15X15 Decelerations: None Category: Category I Pain Assessment Pain Scale: 4 Pain Presence: Intermittent Pain Type: Cramping Pain Location: Abdomen Pain Relief Measures: Comfort Measures Datetime: 04/19/2016 05:45 Assessment Type: Triage Maternal Assessment Level of Consciousness: Fully Conscious DTR's/Clonus: DTRs 2+; No Clonus Headache: Denies Blurred Vision: No Respiratory Effort: Unlabored; Regular Rhythm; Equal Expansion Breath Sounds, Left: Clear and Equal Breath Sounds, Right: Clear and Equal Nausea/Vomiting: Denies RUQ Epigastric Pain: Denies Lower Extremities Edema: None Upper Extremities Edema: None Facial Edema: None Fall Risk Assessment History of Falling: (0) No Secondary Diagnosis: (0) No Ambulatory Aid: (0) Bedrest/Nurse Assist IV Therapy: (0) No Gait: (0) Normal/Bedrest/Immobile Mental Status: (0) Oriented to Own Ability Fall Score: 0 Fall Risk Score Definition: No Risk: No action required Datetime: 04/17/2016 19:31 Fall Score: 0 Fall Risk Score Definition: No Risk: No action required Datetime: 04/17/2016 15:34 Fall Score: 0 Fall Risk Score Definition: No Risk: No action required Datetime: 04/17/2016 15:28 EGA: 32.3 Datetime: 03/28/2016 20:24 Fall Score: 0 Fall Risk Score Definition: No Risk: No action required Datetime: 03/28/2016 07:59 Fall Score: 0 Fall Risk Score Definition: No Risk: No action required Datetime: 03/27/2016 19:46 Fall Score: 20 Fall Risk Score Definition: No Risk: No action required Datetime: 03/27/2016 07:34 Fall Score: 0 Fall Risk Score Definition: No Risk: No action required Datetime: 03/26/2016 19:54 Fall Score: 0 Fall Risk Score Definition: No Risk: No action required Datetime: 03/26/2016 09:01 Fall Score: 20 Fall Risk Score Definition: No Risk: No action required Datetime: 03/25/2016 12:42 Fall Score: 0 Fall Risk Score Definition: No Risk: No action required Datetime: 03/25/2016 11:35 Fall Score: 0 Fall Risk Score Definition: No Risk: No action required Datetime: 03/25/2016 11:33 EGA: 29.1 Datetime: 03/22/2016 08:00 Fall Score: 0 Fall Risk Score Definition: No Risk: No action required Datetime: 03/21/2016 19:27 Fall Score: 0 Fall Risk Score Definition: No Risk: No action required Datetime: 03/21/2016 07:37 Fall Score: 0 Fall Risk Score Definition: No Risk: No action required Datetime: 03/20/2016 19:37 Fall Score: 0 Fall Risk Score Definition: No Risk: No action required Datetime: 03/20/2016 07:43 Fall Score: 20 Fall Risk Score Definition: No Risk: No action required Datetime: 03/19/2016 19:45 Fall Score: 0 Fall Risk Score Definition: No Risk: No action required Datetime: 03/18/2016 19:23 Fall Score: 0 Fall Risk Score Definition: No Risk: No action required Datetime: 03/17/2016 19:12 Fall Score: 20 Fall Risk Score Definition: No Risk: No action required Datetime: 03/16/2016 20:14 Fall Score: 0 Fall Risk Score Definition: No Risk: No action required Datetime: 03/16/2016 08:14 Fall Score: 0 Fall Risk Score Definition: No Risk: No action required Datetime: 03/15/2016 19:40 Fall Score: 0 Fall Risk Score Definition: No Risk: No action required Datetime: 03/15/2016 09:25 Fall Score: 20 Fall Risk Score Definition: No Risk: No action required Datetime: 03/14/2016 21:45 Fall Score: 0 Fall Risk Score Definition: No Risk: No action required Datetime: 03/14/2016 18:05 Fall Score: 0 Fall Risk Score Definition: No Risk: No action required Datetime: 03/14/2016 18:00 EGA: 27.4 Datetime: 03/13/2016 19:51 Fall Score: 20 Fall Risk Score Definition: No Risk: No action required Datetime: 03/12/2016 19:47 Fall Score: 0 Fall Risk Score Definition: No Risk: No action required Datetime: 03/12/2016 08:45 Fall Score: 0 Fall Risk Score Definition: No Risk: No action required Datetime: 03/11/2016 19:54 Fall Score: 20 Fall Risk Score Definition: No Risk: No action required Datetime: 03/11/2016 08:10 Fall Score: 0 Fall Risk Score Definition: No Risk: No action required Datetime: 03/10/2016 21:01 Fall Score: 0 Fall Risk Score Definition: No Risk: No action required Datetime: 03/10/2016 19:07 Fall Score: 0 Fall Risk Score Definition: No Risk: No action required Datetime: 03/10/2016 18:50 EGA: 27.0 Datetime: 02/26/2016 19:31 Fall Score: 0 Fall Risk Score Definition: No Risk: No action required Datetime: 02/26/2016 07:47 Fall Score: 20 Fall Risk Score Definition: No Risk: No action required Datetime: 02/25/2016 19:49 Fall Score: 0 Fall Risk Score Definition: No Risk: No action required Datetime: 02/25/2016 07:05 Fall Score: 20 Fall Risk Score Definition: No Risk: No action required Datetime: 02/24/2016 19:50 Fall Score: 20 Fall Risk Score Definition: No Risk: No action required Datetime: 02/24/2016 09:05 Fall Score: 0 Fall Risk Score Definition: No Risk: No action required Datetime: 02/24/2016 04:40 Fall Score: 0 Fall Risk Score Definition: No Risk: No action required Datetime: 02/24/2016 02:04 EGA: 24.6 Datetime: 02/24/2016 02:02 Fall Score: 0 Fall Risk Score Definition: No Risk: No action required Datetime: 01/31/2016 21:24 Fall Score: 0 Fall Risk Score Definition: No Risk: No action required Datetime: 01/31/2016 08:00 Fall Score: 0 Fall Risk Score Definition: No Risk: No action required Datetime: 01/30/2016 19:25 Fall Score: 20 Fall Risk Score Definition: No Risk: No action required Datetime: 01/30/2016 08:00 Fall Score: 0 Fall Risk Score Definition: No Risk: No action required Datetime: 01/29/2016 19:37 Fall Score: 0 Fall Risk Score Definition: No Risk: No action required Datetime: 01/29/2016 08:10 Fall Score: 0 Fall Risk Score Definition: No Risk: No action required Datetime: 01/28/2016 21:05 Fall Score: 0 Fall Risk Score Definition: No Risk: No action required Datetime: 01/27/2016 21:17 Fall Score: 0 Fall Risk Score Definition: No Risk: No action required Datetime: 01/27/2016 08:17 Fall Score: 0 Fall Risk Score Definition: No Risk: No action required Datetime: 01/26/2016 19:55 Fall Score: 0 Fall Risk Score Definition: No Risk: No action required Datetime: 01/26/2016 08:03 Fall Score: 0 Fall Risk Score Definition: No Risk: No action required Datetime: 01/25/2016 20:57 Fall Score: 0 Fall Risk Score Definition: No Risk: No action required Datetime: 01/25/2016 08:00 Fall Score: 20 Fall Risk Score Definition: No Risk: No action required Datetime: 01/24/2016 23:07 Fall Score: 0 Fall Risk Score Definition: No Risk: No action required Datetime: 12/17/2015 19:42 Fall Score: 0 Fall Risk Score Definition: No Risk: No action required Datetime: 12/17/2015 08:00 Fall Score: 20 Fall Risk Score Definition: No Risk: No action required Datetime: 12/16/2015 19:51 Fall Score: 0 Fall Risk Score Definition: No Risk: No action required Datetime: 12/16/2015 10:00 Fall Score: 20 Fall Risk Score Definition: No Risk: No action required Datetime: 12/15/2015 19:37 Fall Score: 20 Fall Risk Score Definition: No Risk: No action required Datetime: 12/15/2015 08:34 Fall Score: 20 Fall Risk Score Definition: No Risk: No action required Datetime: 12/14/2015 19:43 Fall Score: 20 Fall Risk Score Definition: No Risk: No action required Datetime: 12/14/2015 16:00 Fall Score: 20 Fall Risk Score Definition: No Risk: No action required Datetime: 12/14/2015 15:39 EGA: 20.3
[2016-04-21 04:17] VITALS: BP 147/101; PULSE 102; RESP 18
[2016-04-21] MEDS: LORAZEPAM 2 MG INJ IV PRN ×4 (04:19→21:57)
[2016-04-21] MEDS: LACTATED RINGER'S 1,000 ML IV SCH ×3 (04:19→19:04)
[2016-04-21] MEDS: ONDANSETRON 4 MG INJ IV PRN ×4 (04:19→21:56)
--- NOTE | 2016-04-21 22:59 | QN ---
Documentation Comment HISTORY AND PHYSICAL HISTORY OF PRESENT ILLNESS: The patient is a 31-year-old 1, last menstrual period 08/24/2015 with estimated date of confinement of 06/09/2016 with an intrauterine at 33 weeks. The patient has a known history of cyclical vomiting syndrome that she has had her whole life and she did fine for 3 years prior to . During this , she has had multiple exacerbations of this condition. This is her 10th admission. Initially, it was once a month and then it became a little more frequent. It has been 1 day since her prior admission as apparently she had a baby shower yesterday so she was very anxious to leave and said she felt much better but in actuality she was only able to stay for 20 minutes before she was sick again and now she is much worse. During a prior admission, we had a GI consultation and was initiated her on co-Q10 and Elavil, which is not normally recommended in , but we are trying it to get her through this difficult time and stop it hopefully around 36 weeks to get out of the system before the baby is born. Normally, during exacerbations, Ativan helps significantly. On prior admissions , we have given her Ativan, Zofran, Diclegis, and Pepcid. Now she has been on Elavil every night. Came in and started on IV hydration, IV Zofran, Diclegis, and then Ativan and still is not eating anything. I believe the Elavil is has helped some. Her blood pressures also normally rise significantly during the exacerbation and then normalize completely as she improves. Pt was in OB triage 5 days ago when she felt like a bout was coming on and she was hydrated, medicated and upon normalization of her BP's and she was feeling much better she was sent home. She was here about 36 hours when she left yesterday. PAST MEDICAL HISTORY: None other than the cyclical vomiting syndrome. PAST SURGICAL HISTORY: None. ALLERGIES: PENICILLIN. MEDICATIONS: 1. Ativan. 2. Zofran. 3. Diclegis. 4. Pepcid. 5. Now the Elavil 100 mg at bedtime. 6. She takes Boost at home, as this is something that agrees with her instead of vitamins, as she cannot take vitamins at this point. LABORATORY DATA: Pt had an entire evaluation 04/17 as when she has an exacerbation her BP's rise significantly and as she improves, they normalize. US 04/17 EFW 2003 grams or S=D. VTX. ATTILA 15.9. PIH labs were all very normal. PHYSICAL EXAMINATION: BP 147/101 on admit, better now but still high T=97.8 LUNGS: Clear to auscultation. HEART: Regular rate and rhythm. ABDOMEN: Soft, nontender, gravid. PELVIC: Deferred. EXTREMITIES: Nontender. No edema. ASSESSMENT: 1. Intrauterine at 33 weeks. 2. Cyclical vomiting syndrome. Meds: Elavil 100 mg daily, Pepcid, Ativan 2 mg q. 6 p.r.n., Zofran 8 mg, IV hydration, and passage of time. 3. Labetalol 10 mg IV x 1 now. ANIRUDH COOPER MD Apr 21, 2016 22:59
[2016-04-21] MEDS ORDERED: LABETALOL HCL 20MG INJ IV ONE (23:00)
[2016-04-22] MEDS: LACTATED RINGER'S 1,000 ML IV SCH ×3 (03:37→21:05)
[2016-04-22] MEDS: ONDANSETRON 4 MG INJ IV PRN ×2 (05:00→14:25)
[2016-04-22] MEDS: LORAZEPAM 2 MG INJ IV PRN ×2 (05:00→14:20)
[2016-04-22] MEDS ORDERED: BUTORPHANOL 2 MG INJ IV ONE (16:30)
[2016-04-22] MEDS ORDERED: LABETALOL HCL 20MG INJ IV PRN (16:30)
[2016-04-22] MEDS ORDERED: BUTORPHANOL 2 MG INJ IV PRN (21:00)
[2016-04-22] MEDS ORDERED: AMITRIPTYLINE 50 MG TAB PO SCH (21:00)
[2016-04-22] MEDS: AMITRIPTYLINE 25 MG TAB PO SCH (21:05)
--- NOTE | 2016-04-23 00:02 | QN ---
Documentation Comment Progress Note Pt has not progressed today. Is able to tolerate some water and Boost/Ensure in small amounts and then had a bout of severe abdominal pain again in the afternoon necessitating a dose of Stadol. BP's have stayed high until the Stadol was given and then they went back to her normal range of 120's/70's. heart tracing reactive and w/o signs of distress. P: 24 hour urine collection in progress. Will repeat PIH labs. Continue current care. ANIRUDH COOPER MD Apr 23, 2016 00:02
[2016-04-23] MEDS: LACTATED RINGER'S 1,000 ML IV SCH (05:27)
[2016-04-23 06:49] LABS: ADD SCAN DIFF NO
[2016-04-23 06:52] LABS: BASOPHIL # 0.1 10^3/ul (0.0-0.1); BASOPHILS % 0.8 % (0.0-2.0); EOSINOPHILS # 0.1 10^3/ul (0.0-0.5); EOSINOPHILS % 1.6 % (0.0-7.0); HEMOGLOBIN 8.9 g/dl (12.0-16.0); LYMPHOCYTES # 1.5 10^3/ul (0.8-2.9); LYMPHOCYTES % 24.8 % (15.0-51.0); MEAN CORPUSCULAR HEMOGLOBIN 29.2 pg (29.0-33.0); MEAN CORPUSCULAR VOLUME 88.5 fl (82.0-101.0); MEAN PLATELET VOLUME 9.1 fl (7.4-10.4); MONOCYTE # 0.7 10^3/ul (0.3-0.9); MONOCYTES % 10.9 % (0.0-11.0); NEUTROPHIL # 3.7 10^3/ul (1.6-7.5); NEUTROPHILS % 60.4 % (39.0-77.0); PLATELET COUNT 336 10^3/UL (140-415); RED BLOOD COUNT 3.05 10^6/ul (4.20-5.40); RED CELL DISTRIBUTION WIDTH 12.5 % (11.5-14.5); WHITE BLOOD COUNT 6.1 10^3/ul (4.8-10.8)
[2016-04-23 07:08] LABS: ALBUMIN 2.4 g/dl (3.3-4.9)
[2016-04-23 07:09] LABS: POTASSIUM 3.1 mmol/L (3.5-5.1)
[2016-04-23 07:11] LABS: ALBUMIN/GLOBULIN RATIO 0.82; BILIRUBIN,INDIRECT 0.1 mg/dl (0-1.1); BILIRUBIN,TOTAL 0.1 mg/dl (0.2-1.3); CREATININE 0.56 mg/dl (0.44-1.00); TOTAL PROTEIN 5.3 g/dl (6.1-8.1)
[2016-04-23 07:12] LABS: URIC ACID 4.8 mg/dl (3.1-7.9)
[2016-04-23 14:53] LABS: SCRET 0.56 mg/dl (0.44-1.00)
[2016-04-23 15:46] LABS: ADD SCAN DIFF NO
[2016-04-23 15:47] LABS: BASOPHIL # 0.1 10^3/ul (0.0-0.1); BASOPHILS % 0.8 % (0.0-2.0); EOSINOPHILS # 0.1 10^3/ul (0.0-0.5); EOSINOPHILS % 1.7 % (0.0-7.0); HEMOGLOBIN 9.8 g/dl (12.0-16.0); LYMPHOCYTES # 1.4 10^3/ul (0.8-2.9); MEAN CORPUSCULAR HEMOGLOBIN 29.6 pg (29.0-33.0); MEAN CORPUSCULAR HGB CONC 33.8 g/dl (32.0-37.0); MEAN CORPUSCULAR VOLUME 87.6 fl (82.0-101.0); MEAN PLATELET VOLUME 9.1 fl (7.4-10.4); MONOCYTE # 0.7 10^3/ul (0.3-0.9); MONOCYTES % 10.1 % (0.0-11.0); NEUTROPHIL # 4.1 10^3/ul (1.6-7.5); NEUTROPHILS % 63.8 % (39.0-77.0); PLATELET COUNT 340 10^3/UL (140-415); RED BLOOD COUNT 3.31 10^6/ul (4.20-5.40); RED CELL DISTRIBUTION WIDTH 12.3 % (11.5-14.5); WHITE BLOOD COUNT 6.4 10^3/ul (4.8-10.8)
[2016-04-23 15:59] LABS: ALBUMIN 2.6 g/dl (3.3-4.9)
[2016-04-23 16:00] LABS: POTASSIUM 3.2 mmol/L (3.5-5.1)
[2016-04-23 16:02] LABS: ALBUMIN/GLOBULIN RATIO 0.89; BILIRUBIN,INDIRECT 0.1 mg/dl (0-1.1); BILIRUBIN,TOTAL 0.1 mg/dl (0.2-1.3); CREATININE 0.52 mg/dl (0.44-1.00); TOTAL PROTEIN 5.5 g/dl (6.1-8.1)
[2016-04-23 16:03] LABS: CALCIUM 8.2 mg/dl (8.4-10.2)
[2016-04-23 16:04] LABS: INR 0.93; PARTIAL THROMBOPLASTIN TIME 31.5 Sec (25.0-35.0); PROTIME 12.5 Sec (12.2-14.2)
[2016-04-23] MEDS: AMITRIPTYLINE 25 MG TAB PO SCH (22:03)
--- NOTE | 2016-04-23 23:54 | QN ---
Documentation Comment HD#2 Pt feeling better today. No nausea or vomiting today. Received Stadol last night due to abdominal pain/cramping that was not relieved by the Ativan and it helped a lot although she has been sleepy all day. Pt's IV infiltrated this afternoon and did not restart it. BP's calming down now that the vomiting exacerbation has improved. PIH labs all normal. A 24 hour urine collection showed 192gm/24 hours with a total volume collection of 3850ml, which is slightly elevated out of normal range. P: Continue care. Will d/c in the AM if she does fine overnight. ANIRUDH OCOPER MD Apr 23, 2016 23:54
[2016-04-24] MEDS ORDERED: LORAZEPAM 2 MG INJ IM ONE ×2 (08:00)
[2016-04-24] MEDS ORDERED: ONDANSETRON INJ 8 MG in DEXTROSE 5% 50 ML IV PRN (09:00)
[2016-04-24] MEDS ORDERED: ONDANSETRON 4 MG INJ IV PRN (09:30)
[2016-04-24] MEDS ORDERED: BUTORPHANOL 2 MG INJ IM ONE (10:30)
--- NOTE | 2016-04-24 12:19 | QN ---
Documentation Comment HD #3 Pt was doing very well last night, eating and feeling good. She woke up this morning fine until she had a half a peanut butter sandwich and started vomiting again. The Ativan given did not help so will give Stadol 2mg Im now and Zofran 4 mg IM. Need to restart her IV and waiting for someone to be available that is good at it.Will give potassium in her IV as well although she was drinking some electrolyte water last night. P: Continue care. ANIRUDH COOPER MD Apr 24, 2016 12:19
[2016-04-24] MEDS: LACTATED RINGER'S 1,000 ML IV SCH (13:27)
[2016-04-24] MEDS ORDERED: D5W-0.45 NACL + KCL 40 MEQ 1,000 ML IV SCH (13:30)
[2016-04-24] MEDS ORDERED: ONDANSETRON 4 MG INJ IM PRN (13:30)
[2016-04-24] MEDS ORDERED: PANTOPRAZOLE 40 MG INJ IV ONE (15:00)
[2016-04-24] MEDS: LORAZEPAM 2 MG INJ IV PRN (15:06)
[2016-04-24] MEDS: ONDANSETRON 4 MG INJ IV PRN (16:50)
[2016-04-24] MEDS: AMITRIPTYLINE 25 MG TAB PO SCH (21:11)
[2016-04-24] MEDS: DEXTROSE 5%-0.45% NACL 1,000 ML IV SCH (21:41)
[2016-04-25] MEDS: LORAZEPAM 2 MG INJ IV PRN ×2 (04:54→19:54)
[2016-04-25] MEDS: DEXTROSE 5%-0.45% NACL 1,000 ML IV SCH ×3 (05:49→21:30)
[2016-04-25] MEDS: PANTOPRAZOLE 40 MG INJ IV SCH (06:18)
[2016-04-25] MEDS: ONDANSETRON 4 MG INJ IV PRN ×2 (08:01→19:51)
[2016-04-25] MEDS ORDERED: BUTORPHANOL 2 MG INJ IV ONE (11:30)
[2016-04-25] MEDS ORDERED: LABETALOL HCL 20MG INJ IV ONE (20:30)
[2016-04-25] MEDS: DEXTROSE IV SCH (20:42)
[2016-04-25] MEDS: NACL IV SCH (20:42)
[2016-04-25] MEDS: MULTIVITAMINS IV SCH (20:42)
[2016-04-25] MEDS: AMITRIPTYLINE 25 MG TAB PO SCH (21:06)
--- NOTE | 2016-04-25 22:51 | QN ---
Documentation Comment Pt still has not turned the corner. Had to give another dose of Stadol today when the abdominal pain did not resolve with the Ativan, which is very unusual. Pt was experiencing nausea later in the day which I suspect is due to the narcotic lingering effect so gave Zofran and will hold the Stadol. Will ask for another consult from Dr Chavez as she is having a slow recovery and to see if he has any insight into the BP spikes with exacerbation of her sx's. Will continue care for now. ANIRUDH COOPER MD Apr 25, 2016 22:50
[2016-04-26] MEDS: ONDANSETRON 4 MG INJ IV PRN ×3 (02:27→17:55)
[2016-04-26] MEDS: LORAZEPAM 2 MG INJ IV PRN ×4 (02:27→17:55)
[2016-04-26] MEDS: DEXTROSE 5%-0.45% NACL 1,000 ML IV SCH ×2 (05:05→13:04)
[2016-04-26] MEDS: PANTOPRAZOLE 40 MG INJ IV SCH (06:29)
[2016-04-26] MEDS ORDERED: LABETALOL HCL 20MG INJ IV ONE (07:00)
--- NOTE | 2016-04-26 19:51 | QN ---
Documentation Comment Pt was doing better today until she drank an Ensure over 30 minutes. She had 2 doses of Ativan today with one in the family medicine chair and one around 5 PM. She is not in pain currently but does not feel well. Blood pressure still are spiking when she doesn't feel well. The highest today was 180/109. When she is feeling better then the pressures are 130/70-80's. Changed the NST's to once/shift. Consult with Dr Chavez was called today and he will be in to see her tomorrow. P: Continue care. ANIRUDH COOPER MD Apr 26, 2016 19:51
[2016-04-26] MEDS: DEXTROSE IV SCH (21:18)
[2016-04-26] MEDS: NACL IV SCH (21:18)
[2016-04-26] MEDS: MULTIVITAMINS IV SCH (21:18)
[2016-04-26] MEDS: AMITRIPTYLINE 25 MG TAB PO SCH (21:30)
[2016-04-27] MEDS: DEXTROSE 5%-0.45% NACL 1,000 ML IV SCH ×4 (04:29→21:30)
[2016-04-27] MEDS: PANTOPRAZOLE 40 MG INJ IV SCH (06:00)
[2016-04-27] MEDS: ONDANSETRON 4 MG INJ IV PRN (10:37)
[2016-04-27] MEDS: LORAZEPAM 2 MG INJ IV PRN ×2 (10:53→14:07)
--- NOTE | 2016-04-27 17:44 | QN ---
Documentation Comment Pt still not doing better. Dr Chavez, the GI specialist came by to see her and reviewed her case with him. He recommends trying erythromycin 250 IV 20-30 minutes before a meal (Ensure or Boost) to see if it helps her stomach empty in the proper direction, i.e downwards instead of upwards. If that doesn't work then he recommends trying a pediatric feeding tube to give her the nutrition as sometimes bypassing the swallowing etc will help keep it down. We will try!! ANIRUDH COOPER MD Apr 27, 2016 17:43
[2016-04-27] MEDS: BUTORPHANOL 2 MG INJ IV PRN (18:43)
[2016-04-27] MEDS ORDERED: BUTORPHANOL 2 MG INJ IV ONE (19:00)
--- NOTE | 2016-04-27 19:40 | RADRPT ---
PROCEDURE: US Abdomen (right upper quadrant). CLINICAL INDICATION: Right upper quadrant abdomen pain. TECHNIQUE: Multiple real-time longitudinal and transverse images of the right upper quadrant of th e abdomen were acquired utilizing a curved array transducer. Images were reviewed on a high-resoluti on PACS workstation. COMPARISON: None FINDINGS: The liver is normal in size and echogenicity. There is no focal hepatic lesion. Color Doppler and pulsed Doppler sonography demonstrate normal an tegrade flow in the portal vein. The gallbladder is normal with no stones or wall thickening. There is no pericholecystic fluid kenia ection. The bile ducts are normal with the common bile duct measuring 3.0 mm in diameter. The visualized portions of the pancreas are unremarkable with obscuration of the tail of the pancrea s. No free fluid is present. The right kidney measures 9.1 x 4.9 x 4.9 cm. There is normal echogenicity of the right kidney. T here is moderate right hydronephrosis. There is no right renal mass or calculus. IMPRESSION: 1. Moderate right hydronephrosis. 2. Otherwise normal right upper quadrant abdomen ultrasound. RPTAT: QQ .Connor Lundberg MD, Date Time Electronically viewed and signed by .Connor Lundberg MD, on 04/27/2016 19:40 .R/
[2016-04-27] MEDS: ERYTHROMYCIN LACTOBIONATE 250 MG in SOD CHLORIDE 0.9% 100 ML IVPB SCH (20:28)
[2016-04-27] MEDS: NACL IV SCH (20:30)
[2016-04-27] MEDS: MULTIVITAMINS IV SCH (20:30)
[2016-04-27] MEDS: DEXTROSE IV SCH (20:30)
[2016-04-27] MEDS: AMITRIPTYLINE 25 MG TAB PO SCH (22:22)
[2016-04-28] MEDS: NACL IV SCH ×2 (01:05→21:04)
[2016-04-28] MEDS: DEXTROSE IV SCH ×2 (01:05→21:04)
[2016-04-28] MEDS: MULTIVITAMINS IV SCH ×2 (01:05→21:04)
[2016-04-28] MEDS: DEXTROSE 5%-0.45% NACL 1,000 ML IV SCH ×3 (05:30→21:05)
[2016-04-28] MEDS: PANTOPRAZOLE 40 MG INJ IV SCH (05:54)
[2016-04-28] MEDS: ERYTHROMYCIN LACTOBIONATE 250 MG in SOD CHLORIDE 0.9% 100 ML IVPB SCH ×3 (07:43→17:39)
[2016-04-28] MEDS: LORAZEPAM 2 MG INJ IV PRN (08:23)
[2016-04-28] MEDS: ONDANSETRON 4 MG INJ IV PRN (08:23)
[2016-04-28] MEDS: BUTORPHANOL 2 MG INJ IV PRN ×2 (13:11→19:51)
--- NOTE | 2016-04-28 16:04 | QN ---
Documentation Comment Pt still w/o improvement. She will feel better then try to eat something and she will have severe epigastric pain. The erythromycin is not seeming to help although it did not make the situation worse. Will now try a pediatric feeding tube with a slow drip to try to feed the pt. Cannot find an NJ tube in the hospital to try to bypass the stomach as the ICU does not have one and neither does [facility], so will try an NG tube , 12 Khmer. A call is in to Nutrition to provide us with a solution to pass through the tube. ANIRUDH COOPER MD Apr 28, 2016 16:04
--- NOTE | 2016-04-28 19:06 | QN ---
Documentation Comment Consent to a chest x-ray during : The e-ray is being done after a prolonged hospitalization for with cyclical vomiting syndrome and we have not been able to stabilize her. Yesterday Dr Chavez, the GI specialist saw her again and had recommended a trial of IV erythromycin to see if that would help with gastric emptying but it hasn't seemed to help. His next suggestion was to try an NGT with feeding to try to get some nutrition in her at a slow constant pace to see if not loading the stomach makes a difference. The patient understands well the process of an NGT and the need for a chest x-ray to determine placement prior to administering feedings. 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 The patient has agreed to the x-ray with full understanding. ANIRUDH COOPER MD Apr 28, 2016 19:05
--- NOTE | 2016-04-28 19:36 | RADRPT ---
PROCEDURE: XR Chest. CLINICAL INDICATION: Check nasogastric tube position. TECHNIQUE: Single frontal view. COMPARISON: None. FINDINGS: The lungs are clear. There is a nasogastric tube tip in the stomach. The heart size is normal. There is no pleural effusion. There is no pneumothorax. IMPRESSION: 1. Nasogastric tube tip in the stomach. 2. Clear lungs. RPTAT: QQ .Connor Lundberg MD, MD Date Time Electronically viewed and signed by .Connor Lundberg MD, on 04/28/2016 19:36 .R/
[2016-04-28] MEDS: AMITRIPTYLINE 25 MG TAB PO SCH (21:04)
--- NOTE | 2016-04-28 21:14 | CONS ---
DATE OF ADMISSION: 04/21/2016 DATE OF CONSULTATION: 04/27/2016 HISTORY OF PRESENT ILLNESS: The patient is a 31-year-old 1 with intrauterine at 3 3 weeks. She has been hospitalized again for cyclical vomiting. The patient had multiple hospitali zations in the past. She did tolerate coQ-10 at 200 mg and Elavil and stayed out of the hospital fo r 3 to 4 weeks, but now the symptoms are getting worse and unable to nutritionally support herself a nd the baby, so she is hospitalized. The patient also complains of epigastric pain. No history of gallbladder disease. No heartburn, no chest pain, no shortness of breath. PAST MEDICAL HISTORY: Please refer to the old record. She is known to have cyclical vomiting since childhood. PAST SURGICAL HISTORY: None. ALLERGIES: PENICILLIN. MEDICATIONS: She is on: 1. Ativan. 2. Zofran. 3. Diclegis. 4. Pepcid. 5. Elavil. LABORATORY DATA: Alkaline phosphatase was elevated. Blood pressure, elevated. PHYSICAL EXAMINATION: GENERAL: Alert, awake, not in distress now. CARDIOVASCULAR: No murmur. LUNGS: Clear. ABDOMEN: Soft, gravid, nontender. EXTREMITIES: No edema. CENTRAL NERVOUS SYSTEM: Grossly within normal limits. IMPRESSION: 1. Intrauterine at 33 weeks. 2. Cyclical vomiting, which patient is now not responding to Elavil, coQ-10, or Ativan. 3. The patient also has labile hypertension. It goes up during the episode of nausea, cyclic vomit ing, requiring beta darby, labetalol, to correct it. PLAN: At this point, since the patient has not responded to all this regimen, we decided to try naina thromycin for 24 to 48 hours and see whether she is able to keep the food down. If that does not he lp, then she needs nutritional support. Discussed with Dr. Cooper whether to start on TPN or to use Dobbhoff tube for enteral nutrition. We both preferred to use Dobbhoff tube for nutritional suppor t, both for the mother and the baby. She is at risk of exposing herself to x-ray to locate the posi tion of the tip of the Dobbhoff tube. The patient is aware of all the risks to the baby. She under stood and is willing to take chance. Dictated By: RAYMUNDO DAILY/HENNY Conf#: [id number] DID#: [id number] CC: RAYMUNDO THORNTON MD; ANIRUDH COOPER MD;*End*
--- NOTE | 2016-04-28 21:37 | PN ---
DATE: SUBJECTIVE: Nausea, unable to tolerate feeding. No vomiting as per the staff ____. OBJECTIVE: VITAL SIGNS: Stable. GENERAL: The patient is crying. HEENT: Mouth has a 12-Tajik NG tube. Awaiting for the x-ray to check its position. ABDOMEN: Benign. LUNGS: Clear. CENTRAL NERVOUS SYSTEM: Otherwise grossly within normal limits. IMAGING: Sonogram of the abdomen was negative for gallstones or any other intraabdominal pathology. IMPRESSION: Cyclical vomiting not responding to Elavil, coQ-10, Zofran, and now to erythromycin. PLAN: Since NG is passed and if it is in position, will start feeding slowly with all the aspiratio n precautions. If she is able to tolerate it, we will advance it. So this will help for the nutrit ional support both to the mother and to the baby, which is very important. Dictated By: RAYMUNDO THORNTON MD PJ/NTS Conf#: [id number] DID#: [id number] CC: RAYMUNDO THORNTON MD; ANIRUDH COOPER MD;*End*
[2016-04-29] MEDS: DEXTROSE 5%-0.45% NACL 1,000 ML IV SCH ×3 (04:58→23:27)
[2016-04-29] MEDS: PANTOPRAZOLE 40 MG INJ IV SCH (05:45)
[2016-04-29] MEDS: ERYTHROMYCIN LACTOBIONATE 250 MG in SOD CHLORIDE 0.9% 100 ML IVPB SCH (08:43)
[2016-04-29] MEDS: ONDANSETRON 4 MG INJ IV PRN (09:49)
[2016-04-29] MEDS: LORAZEPAM 2 MG INJ IV PRN (10:01)
[2016-04-29] MEDS ORDERED: LABETALOL HCL 20MG INJ IV ONE (11:30)
[2016-04-29] MEDS: BUTORPHANOL 2 MG INJ IV PRN (12:56)
[2016-04-29] MEDS ORDERED: LABETALOL HCL 20MG INJ IV PRN (21:00)
[2016-04-29] MEDS: AMITRIPTYLINE 25 MG TAB PO SCH (21:02)
[2016-04-30] MEDS: NACL IV SCH (04:12)
[2016-04-30] MEDS: DEXTROSE IV SCH (04:12)
[2016-04-30] MEDS: MULTIVITAMINS IV SCH (04:12)
[2016-04-30] MEDS: PANTOPRAZOLE 40 MG INJ IV SCH (06:11)
[2016-04-30] MEDS: DEXTROSE 5%-0.45% NACL 1,000 ML IV SCH ×3 (12:03→21:30)
[2016-04-30 15:29] LABS: ADD UMIC YES; URINE BILIRUBIN (Dip) NEGATIVE (NEGATIVE); URINE BLOOD (Dip) NEGATIVE (NEGATIVE); URINE COLOR LT. YELLOW (YELLOW); URINE GLUCOSE (Dip) NEGATIVE (NEGATIVE); URINE KETONES (Dip) NEGATIVE (NEGATIVE); URINE LEUKOCYTE ESTERASE (Dip) 2+ (NEGATIVE); URINE NITRITE (Dip) NEGATIVE (NEGATIVE); URINE TOTAL PROTEIN (Dip) NEGATIVE (NEGATIVE); URINE UROBILINOGEN (Dip) 1.0 E.U./dL (0.1-1.0)
[2016-04-30 15:38] LABS: ADD SCAN DIFF NO
[2016-04-30 15:41] LABS: SQUAMOUS EPITHELIAL CELL,UR FEW; URINE RBCS 0-2 /HPF ([, 0])
[2016-04-30 15:43] LABS: BASOPHILS % 0.5 % (0.0-2.0); EOSINOPHILS # 0.2 10^3/ul (0.0-0.5); EOSINOPHILS % 2.1 % (0.0-7.0); HEMATOCRIT 29.7 % (37.0-47.0); HEMOGLOBIN 10.3 g/dl (12.0-16.0); LYMPHOCYTES # 1.6 10^3/ul (0.8-2.9); LYMPHOCYTES % 21.9 % (15.0-51.0); MEAN CORPUSCULAR HEMOGLOBIN 29.9 pg (29.0-33.0); MEAN CORPUSCULAR HGB CONC 34.7 g/dl (32.0-37.0); MEAN CORPUSCULAR VOLUME 86.3 fl (82.0-101.0); MEAN PLATELET VOLUME 10.4 fl (7.4-10.4); MONOCYTE # 0.7 10^3/ul (0.3-0.9); MONOCYTES % 9.1 % (0.0-11.0); NEUTROPHIL # 4.8 10^3/ul (1.6-7.5); NEUTROPHILS % 65.2 % (39.0-77.0); PLATELET COUNT 364 10^3/UL (140-415); RED BLOOD COUNT 3.44 10^6/ul (4.20-5.40); RED CELL DISTRIBUTION WIDTH 12.3 % (11.5-14.5); WHITE BLOOD COUNT 7.3 10^3/ul (4.8-10.8)
[2016-04-30 15:51] LABS: INR 0.9; PROTIME 12.1 Sec (12.2-14.2); PT RATIO 0.9
[2016-04-30 15:52] LABS: PARTIAL THROMBOPLASTIN TIME 31.8 Sec (25.0-35.0)
[2016-04-30 15:55] LABS: ALBUMIN 2.7 g/dl (3.3-4.9)
[2016-04-30 15:58] LABS: ALBUMIN/GLOBULIN RATIO 0.9; BILIRUBIN,INDIRECT 0.2 mg/dl (0-1.1); BILIRUBIN,TOTAL 0.2 mg/dl (0.2-1.3); CREATININE 0.55 mg/dl (0.44-1.00); TOTAL PROTEIN 5.7 g/dl (6.1-8.1)
[2016-04-30 15:59] LABS: CALCIUM 8.2 mg/dl (8.4-10.2); URIC ACID 3.7 mg/dl (3.1-7.9)
[2016-04-30] MEDS ORDERED: D5W-0.45 NACL + KCL 40 MEQ 1,000 ML IV ONE (17:00)
--- NOTE | 2016-04-30 17:34 | QN ---
Documentation Comment Ms Raymond G1 @ 34w 2d has been tolerating the slow increase in tube feedings. Now on 40 ml/hr. Will go up regularly. Has not needed Ativan today and hasn't had any since yesterday AM. Her blood pressures are still high so am repeating all the [facility] labs. The plts, ALT, AST, uric acid etc are all normal. Her K+ was a little low so will replace that. Have a 24 hour urine in progress. Am hoping that she will continue to progress and will be able to get her home soon. Hopefully the blood pressure will improve as she improves and as it has in the past. Usually that is the sign of the true turning point. She will also not need any rescue Ativan prior to d/c. ANIRUDH COOPER MD Apr 30, 2016 17:34
[2016-04-30] MEDS: AMITRIPTYLINE 25 MG TAB PO SCH (21:10)
[2016-05-01] MEDS: DEXTROSE IV SCH ×2 (03:57→21:14)
[2016-05-01] MEDS: MULTIVITAMINS IV SCH ×2 (03:57→21:14)
[2016-05-01] MEDS: NACL IV SCH ×2 (03:57→21:14)
[2016-05-01] MEDS: PANTOPRAZOLE 40 MG INJ IV SCH (05:57)
[2016-05-01] MEDS: DEXTROSE 5%-0.45% NACL 1,000 ML IV SCH ×3 (12:54→21:30)
[2016-05-01 18:32] LABS: SCRET 0.55 mg/dl (0.44-1.00)
[2016-05-01] MEDS: AMITRIPTYLINE 25 MG TAB PO SCH (21:06)
[2016-05-01] MEDS: LABETALOL HCL 20MG INJ IV SCH (21:07)
[2016-05-01] MEDS: POTASSIUM CHLORIDE IV SCH (21:14)
[2016-05-02] MEDS: DEXTROSE 5%-0.45% NACL 1,000 ML IV SCH ×2 (05:41→13:48)
[2016-05-02] MEDS: PANTOPRAZOLE 40 MG INJ IV SCH (05:41)
[2016-05-02] MEDS: LABETALOL HCL 20MG INJ IV SCH ×2 (09:25→21:00)
[2016-05-02] MEDS: BUTORPHANOL 2 MG INJ IV PRN (14:48)
[2016-05-02] MEDS: ONDANSETRON 4 MG INJ IV PRN (20:14)
[2016-05-02] MEDS: AMITRIPTYLINE 25 MG TAB PO SCH (20:58)
[2016-05-02] MEDS: NACL IV SCH (21:07)
[2016-05-02] MEDS: POTASSIUM CHLORIDE IV SCH (21:07)
[2016-05-02] MEDS: DEXTROSE IV SCH (21:07)
[2016-05-02] MEDS: MULTIVITAMINS IV SCH (21:07)
[2016-05-02] MEDS: LORAZEPAM 2 MG INJ IV PRN (23:21)
--- NOTE | 2016-05-02 23:50 | QN ---
Documentation Comment Ms Raymond had the NGT for 3 days, had been medication free for a full 2 days, was tolerating 70ml feedings w/o a problem so we decided to advance her diet. The NGT was pulled this morning and the pt tried to have 5 small sips of a rice porridge and began to have the same epigastric pain that she was experiencing before. She still has an excellent IV site and is being hydrated well. She has not eaten since and we did have to give her 1 mg of Stadol this afternoon because of the pain. She did not get any Ativan as it hasn't seemed to be working. I will ask Dr Chavez tomorrow AM if he thinks an endoscopy is warranted and then we will probably re-introduce the NGT and once she is stable , possibly consider being able to send the pt home with it. She is also currently on Labetalol for gestational hypertension. I had started her on 10mg BID by IV but I can see she needs 20mg and advanced her tonight. ANIRUDH COOPER MD May 02, 2016 23:50
[2016-05-03] MEDS: DEXTROSE 5%-0.45% NACL 1,000 ML IV SCH ×3 (05:02→12:51)
[2016-05-03] MEDS: PANTOPRAZOLE 40 MG INJ IV SCH (06:05)
[2016-05-03] MEDS ORDERED: LABETALOL HCL 20MG INJ IV SCH (09:00)
--- NOTE | 2016-05-03 15:14 | CONS ---
DATE OF ADMISSION: 04/21/2016 DATE OF CONSULTATION: TYPE OF CONSULTATION: Gastroenterology. REFERRING PHYSICIAN: Tulio Smalls MD HISTORY OF PRESENT ILLNESS: The patient is a 31-year-old female with a history of cyclic vomiting w as admitted for the same problem, unable to eat, epigastric discomfort. The patient was tried on El avil, CoQ10 200 mg, anxiolytic medication like Ativan, but no relief. So finally for the nutritiona l support, we had to pass an NG tube and the patient tolerated the feeding up to 70 mL/hour. For th e last 48 hours, the patient was off the anxiolytic medications as well as narcotic pain medication and was tolerating feeding at 70 mL/hour. Her color was good. Condition improved. The family felt also patient's condition improved dramatically. She was not throwing up and tolerating 70 mL of fl uid. However, the NG tube was removed and again patient started feeling nauseous and unable to tole rate feeding, but had no pain. I saw the patient today and had an extensive discussion with her. S he wants to try 1 more day without NG tube feeding and see whether she can tolerate feeding or not. IMPRESSION: 1. Cyclic vomiting. The patient had responded well to enteral nutrition. 2. The symptoms recurred after removal of the NG tube. PLAN: Give another 12 to 24 hours time. If patient is not able to nutritionally support herself, t hen we will have to pass a Dobbhoff tube which will be comfortable. The patient definitely needs nu tritional support and this we can have it for 2 to 3 weeks until she delivers the baby. Dictated By: RAYMUNDO DAILY/NTS Conf#: [id number] DID#: [id number] CC: RAYMUNDO THORNTON MD;*EndCC*
[2016-05-03] MEDS: BUTORPHANOL 2 MG INJ IV PRN (20:03)
[2016-05-03] MEDS: LABETALOL 200 MG TAB PO SCH ×2 (20:03→21:09)
[2016-05-03] MEDS: MULTIVITAMINS IV SCH (20:04)
[2016-05-03] MEDS: NACL IV SCH (20:04)
[2016-05-03] MEDS: DEXTROSE IV SCH (20:04)
[2016-05-03] MEDS: POTASSIUM CHLORIDE IV SCH (20:04)
[2016-05-03] MEDS: AMITRIPTYLINE 25 MG TAB PO SCH (21:28)
[2016-05-03] MEDS: LORAZEPAM 2 MG INJ IV PRN (22:44)
[2016-05-04] MEDS: DEXTROSE 5%-0.45% NACL 1,000 ML IV SCH ×4 (05:30→21:30)
[2016-05-04] MEDS: PANTOPRAZOLE 40 MG INJ IV SCH (06:52)
[2016-05-04] MEDS: ONDANSETRON 4 MG INJ IV PRN (07:12)
[2016-05-04] MEDS: LORAZEPAM 2 MG INJ IV PRN ×2 (07:56→08:50)
[2016-05-04] MEDS: LABETALOL 200 MG TAB PO SCH (09:00)
[2016-05-04] MEDS ORDERED: LABETALOL HCL 20MG INJ IV ONE (09:30)
[2016-05-04] MEDS: BUTORPHANOL 2 MG INJ IV PRN (10:35)
--- NOTE | 2016-05-04 12:46 | CONS ---
Date/Time of Note Date/Time of Note DATE: 05/04/16 TIME: 12:43 Assessment/Plan Assessment/Plan Additional Assessment/Plan IMPRESSION: 1. Intrauterine at 33 weeks. 2. Cyclical vomiting, which patient is now not responding to Elavil, coQ-10, or Ativan.nneeds enteral nutrition 3. The patient also has labile hypertension. It goes up during the episode of nausea, cyclic vomiting, requiring beta darby, labetalol, to correct it. Plan enteral nutrition Dobbhoff tube not available,will use Kangaroo tube,pt.and agreed. discussed with Dr Hermosillo Consultation Date/Type/Reason Admit Date/Time Apr 21, 2016 at 03:10 Initial Consult Date 24 HR Interval Summary Free Text/Dictation nausea and abdominal pain came back after solid food unable to tolerate Po feeding Exam/Review of Systems Vital Signs Vitals Intake and Output 05/03/16 05/03/16 05/04/16 15:00 23:00 07:00 Intake Total 1125 ml 1200 ml 1145 ml Output Total 1900 ml 950 ml Balance 1125 ml -700 ml 195 ml Exam Constitutional: alert, oriented, well developed Psych: nl mood/affect, no complaints Head: atraumatic, normocephalic Eyes: EOMI, PERRL, nl conjunctiva, nl lids, nl sclera ENMT: nl external ears & nose, nl lips & teeth, nl nasal mucosa & septum Neck: non-tender, supple Respiratory: clear to auscultation, normal air movement Cardiovascular: nl pulses, regular rate and rhythm Gastrointestinal: nl liver, spleen, non-tender, soft Musculoskeletal: nl extremities to inspection, nl gait and stance Extremities: normal pulses Neurological: [employer] II-XII intact, nl mental status, nl speech, nl strength Skin: nl turgor, No rash or lesions Lymph: nl lymph nodes Results Result Diagram: 04/30/16 1457 04/30/16 1457 Medications Medications Current Medications Ondansetron HCl (Zofran Inj) 4 mg Q6H PRN IV NAUSEA AND/OR VOMITING Last administered on 05/04/16 07:12; Admin Dose 4 MG; Start 04/21/16 at 03:30 Lorazepam 2 mg 2 mg Q6H PRN IV NAUSEA AND/OR VOMITING Last administered on 05/04 07:56; Admin Dose 2 MG; Start 04/21/16 at 03:30 Dextrose/Sodium Chloride (D5-1/2ns) 1,000 ml @ 125 mls/hr Q8H IV Last administered on 05/04/16 06:51; Admin Dose 125 MLS/HR; Start 04/24/16 at 21:30 Pantoprazole (Protonix Iv) 40 mg DAILY@06 IV Last administered on 05/04/16 06: 52; Admin Dose 40 MG; Start 04/25/16 at 06:00 Butorphanol Tartrate (Stadol) 1 mg Q3H PRN IV PAIN Last administered on 10:35; Admin Dose 1 MG; Start 04/25/16 at 11:30 Labetalol HCl (Labetalol) 10 mg PRN PRN IV ELEVATED BLOOD PRESSURE; Start 04/29 at 21:00 Amitriptyline HCl 75 mg 75 mg HS PO Last administered on 05/03/16 21:28; Admin Dose 75 MG; Start 04/30/16 at 21:00 Multivitamins/ Potassium Chloride/Dextrose/ Sodium Chloride (Mvi Adult/KCl/ D5-1 /2ns) 1,020 ml @ 125 mls/hr Q24H IV Last administered on 05/03/16 20:04; Admin Dose 125 MLS/HR; Start 05/01/16 at 20:30 Labetalol HCl (Normodyne) 200 mg BID PO Last administered on 05/03/16 21:09; Admin Dose 200 MG; Start 05/03/16 at 21:00 RAYMUNDO THORNTON MD May 04, 2016 12:46
--- NOTE | 2016-05-04 14:08 | QN ---
Documentation Comment 33 y.o. G1 with an IUP at 34w 6d with cyclical vomiting syndrome. Pt had done so well on the NGT x 3 days, then it was pulled in the hope of sending her home and she had a minor setback. Dr Chavez, the GI Specialist was called to come and see her yesterday to replace the NGT and the pt had wanted to wait as she was feeling good to see if she could try again to eat. Today it is apparent that she cannot eat so Dr Chavez was called again and the tube will be replaced by a med-surg tech and feedings reinitiated.. Yesterday and today had a discussion with the pt and she agreed that if it was replaced that she would have it in until delivery. The plan will be to send her home with it and have a home health service attend to the NGT. Dr Chavez said the feedings can either continue with the Fibersource or can be Ensure or the like pushed with a syringe and flushed with water. She will be able to take the Elavil and Labetalol around the tube as the tubing is fairly small. The Elavil will continue to be weaned down, weekly, and will go to 50 mg on 05/06. Pt is in fairly good spirits considering the situation. ANIRUDH COOPER MD May 04, 2016 14:08
--- NOTE | 2016-05-04 20:25 | RADRPT ---
PROCEDURE: XR Chest. CLINICAL INDICATION: NG tube placement. TECHNIQUE: Portable AP semi erect view of the chest was obtained. COMPARISON: 04/28/2016 FINDINGS: The cardiomediastinal silhouette is within normal limits. The lungs are clear. There is no evidenc e for pleural effusion, pneumothorax or pulmonary vascular congestion. The osseous structures are i ntact with no evidence for acute abnormality. Distal tip of the nasogastric tube is below the diaphr agm and inferior margin of the exposure presumably within the stomach RPTAT:HJJR IMPRESSION: 1. Distal tip of the nasogastric tube is below the diaphragm and inferior margin of the exposure pr esumably within the stomach. 2. No evidence of acute intrathoracic pathology. Physician Noemy Date Time Electronically viewed and signed by Physician Noemy on 05/04/2016 20:25 JR/
[2016-05-04] MEDS: MULTIVITAMINS IV SCH ×2 (20:30→23:20)
[2016-05-04] MEDS: DEXTROSE IV SCH ×2 (20:30→23:20)
[2016-05-04] MEDS: POTASSIUM CHLORIDE IV SCH ×2 (20:30→23:20)
[2016-05-04] MEDS: NACL IV SCH ×2 (20:30→23:20)
[2016-05-04] MEDS ORDERED: LABETALOL HCL 20MG INJ IV SCH (21:00)
[2016-05-04] MEDS: AMITRIPTYLINE 25 MG TAB PO SCH (21:09)
[2016-05-05] MEDS: DEXTROSE 5%-0.45% NACL 1,000 ML IV SCH (05:30)
[2016-05-05] MEDS: PANTOPRAZOLE 40 MG INJ IV SCH (06:00)
[2016-05-05] MEDS: LABETALOL 200 MG TAB GTB SCH ×2 (09:37→20:38)
[2016-05-05] MEDS: PANTOPRAZOLE (EC) 40 MG TAB PO SCH (11:00)
[2016-05-05] MEDS ORDERED: LABETALOL 200 MG TAB PO SCH (21:00)
[2016-05-05] MEDS ORDERED: LABETALOL 100 MG TAB PO SCH (21:00)
[2016-05-05] MEDS: AMITRIPTYLINE 25 MG TAB PO SCH (21:20)
[2016-05-05 21:40] LABS: ADD SCAN DIFF NO
[2016-05-05 21:41] LABS: BASOPHIL # 0.1 10^3/ul (0.0-0.1); BASOPHILS % 0.8 % (0.0-2.0); EOSINOPHILS # 0.2 10^3/ul (0.0-0.5); EOSINOPHILS % 2.6 % (0.0-7.0); HEMATOCRIT 31.6 % (37.0-47.0); HEMOGLOBIN 10.6 g/dl (12.0-16.0); LYMPHOCYTES # 1.7 10^3/ul (0.8-2.9); LYMPHOCYTES % 21.7 % (15.0-51.0); MEAN CORPUSCULAR HGB CONC 33.5 g/dl (32.0-37.0); MEAN CORPUSCULAR VOLUME 86.3 fl (82.0-101.0); MEAN PLATELET VOLUME 9.5 fl (7.4-10.4); MONOCYTE # 0.7 10^3/ul (0.3-0.9); MONOCYTES % 9.2 % (0.0-11.0); NEUTROPHILS % 64.4 % (39.0-77.0); PLATELET COUNT 458 10^3/UL (140-415); RED BLOOD COUNT 3.66 10^6/ul (4.20-5.40); RED CELL DISTRIBUTION WIDTH 12.6 % (11.5-14.5); WHITE BLOOD COUNT 7.7 10^3/ul (4.8-10.8)
[2016-05-05 21:57] LABS: POTASSIUM 3.7 mmol/L (3.5-5.1)
[2016-05-05 21:58] LABS: CREATININE 0.55 mg/dl (0.44-1.00)
[2016-05-05 21:59] LABS: ALBUMIN/GLOBULIN RATIO 0.85; BILIRUBIN,INDIRECT 0.1 mg/dl (0-1.1); BILIRUBIN,TOTAL 0.1 mg/dl (0.2-1.3); TOTAL PROTEIN 6.5 g/dl (6.1-8.1)
[2016-05-05 22:00] LABS: CALCIUM 9.1 mg/dl (8.4-10.2); URIC ACID 3.9 mg/dl (3.1-7.9)
--- NOTE | 2016-05-06 00:11 | QN ---
Documentation Comment Pt is with the NGT at 70cc/hr.Doing fine without any nausea or vomiting. Is c/ o gas but it doesn't want to come out. No EGP. BP's have been elevatin about 2 hours before her next Labetalol is due so I increased the dosing schedule from 200mg BID to 200mg TID. All PI[facility] labs were repeated and they are all normal. Planning on discharge tomorrow if al goes well. ANIRUDH COOPER MD May 06, 2016 00:10
[2016-05-06] MEDS ORDERED: ACETAMINOPHEN 500 MG TAB PO STA (00:40)
[2016-05-06] MEDS ORDERED: BUTORPHANOL 2 MG INJ IM PRN (01:00)
[2016-05-06] MEDS: PANTOPRAZOLE (EC) 40 MG TAB PO SCH (06:03)
[2016-05-06] MEDS: LABETALOL 100 MG TAB PO SCH ×3 (06:05→21:50)
[2016-05-06] MEDS ORDERED: PANTOPRAZOLE (EC) 40 MG TAB PO SCH (11:00)
[2016-05-06] MEDS: POTASSIUM CHLORIDE IV SCH (20:30)
[2016-05-06] MEDS: MULTIVITAMINS IV SCH (20:30)
[2016-05-06] MEDS: NACL IV SCH (20:30)
[2016-05-06] MEDS: DEXTROSE IV SCH (20:30)
[2016-05-06] MEDS: AMITRIPTYLINE 25 MG TAB PO SCH (21:19)
[2016-05-07] MEDS: PANTOPRAZOLE (EC) 40 MG TAB PO SCH (05:50)
[2016-05-07] MEDS: LABETALOL 100 MG TAB PO SCH ×2 (05:51→13:47)
--- NOTE | 2016-05-07 13:51 | PD.PPDC ---
COLLIERY CLERK Discharge Instruction Condition Patient Condition: Fair Diet Diet: Special Diet Special Diet: NGT with FiberSource feedings on a pump at 50 ml/hour Activity/Restrictions Activity: Bedrest May be up to bathroom May Shower Restrictions: No Exercising No Lifting No Driving Follow-up Follow-up with Physician: 1, Week/Weeks Return to clinic for INTENSIVE CARE UNIT NURSE Instructions: Worsening abdominal pain Comment: Headaches, visual changes, epigastric pain. ANIRUDH COOPER MD May 07, 2016 13:51
[2016-05-07] MEDS ORDERED: LABE100T3 PO (13:56)
[2016-05-07] MEDS ORDERED: AMIT50TA3 PO (13:56)
--- NOTE | 2016-05-07 13:59 | DS ---
Date/Time of Note Date/Time of Note DATE: 05/07/16 TIME: 13:57 Obstetrical Discharge Record Final Diagnosis Final Diagnosis: not delivered Other Final Diagnosis CYCLIC VOMITING SYNDROME. GESTATIONAL HYPERTENSION. Complications Preg induced Hypertension Condition on Discharge Physical Assessment Last Vitals: bp 142/85 Voiding: Yes Bowel Movement: Yes Breast: Soft, non-tender Fundus: Other (Gravid) Calf Tenderness: No Patient Condition: ANIRUDH Ortega MD May 07, 2016 13:59
[2016-05-07] MEDS ORDERED: AMITRIPTYLINE 50 MG TAB PO SCH (21:00)
== END 2016-05-07 18:55 | disposition home health service (06) | DRG 781 ==
LOC: OBT 00:58 → L-D 00:59 → OBT 03:10 → OBG 07:25
PROVIDERS: ADMIT Obstetrics & Gynecology; ATTEND Obstetrics & Gynecology
PROC: 0DH67UZ Insertion of Feeding Device into Stomach, Via Natural or Artificial Opening (ICD-10-PCS; principal; 2016-05-01)
PROC: 3E0G76Z Introduction of Nutritional Substance into Upper GI, Via Natural or Artificial Opening (ICD-10-PCS; 2016-05-01)
DX: O21.2 Late vomiting of pregnancy (principal); O13.3 Gestational [pregnancy-induced] hypertension without significant proteinuria, third trimester; G43.A0 Cyclical vomiting, in migraine, not intractable; Z3A.33 33 weeks gestation of pregnancy
CPT/HCPCS: 71010; 76705; 80053; 81001; 81003; 82575; 84156; 84560; 85025; 85362; 85384; 85610; 85730; C9113; G0463; J1364; J2060; J2405; J3480; J7042; J7120

== ENCOUNTER 2016-05-15 02:52 | Inpatient (IN) | payer BC ==
[~2016-05-15] VITALS: Ht 161.3 cm; Wt 52.3 kg
[~2016-05-15 02:52] MED LIST changes: -AMIT100T2 PO; +AMIT50TA3 PO; +LABE100T3 PO
[2016-05-15 04:25] VITALS: BP 170/106; PULSE 89; RESP 20
[2016-05-15] MEDS ORDERED: RANI300T PO (04:29)
[2016-05-15] MEDS ORDERED: LABETALOL HCL 20MG INJ IV ONE (04:30)
[2016-05-15] MEDS ORDERED: ONDANSETRON 4 MG INJ IV PRN (04:30)
[2016-05-15] MEDS ORDERED: BUTORPHANOL 2 MG INJ IV PRN ×2 (04:30→11:00)
[2016-05-15] MEDS: LACTATED RINGER'S 1,000 ML IV SCH ×3 (05:17→19:22)
[2016-05-15 05:28] LABS: ADD SCAN DIFF NO
[2016-05-15 05:49] LABS: BASOPHIL # 0.1 10^3/ul (0.0-0.1); BASOPHILS % 0.7 % (0.0-2.0); EOSINOPHILS # 0.2 10^3/ul (0.0-0.5); EOSINOPHILS % 1.7 % (0.0-7.0); HEMATOCRIT 32.3 % (37.0-47.0); HEMOGLOBIN 10.5 g/dl (12.0-16.0); LYMPHOCYTES # 1.3 10^3/ul (0.8-2.9); LYMPHOCYTES % 14.6 % (15.0-51.0); MEAN CORPUSCULAR HEMOGLOBIN 28.5 pg (29.0-33.0); MEAN CORPUSCULAR HGB CONC 32.5 g/dl (32.0-37.0); MEAN CORPUSCULAR VOLUME 87.5 fl (82.0-101.0); MEAN PLATELET VOLUME 10.2 fl (7.4-10.4); MONOCYTE # 0.7 10^3/ul (0.3-0.9); MONOCYTES % 7.9 % (0.0-11.0); NEUTROPHIL # 6.3 10^3/ul (1.6-7.5); NEUTROPHILS % 73.5 % (39.0-77.0); PLATELET COUNT 375 10^3/UL (140-415); RED BLOOD COUNT 3.69 10^6/ul (4.20-5.40); RED CELL DISTRIBUTION WIDTH 13.3 % (11.5-14.5); WHITE BLOOD COUNT 8.6 10^3/ul (4.8-10.8)
[2016-05-15 05:55] LABS: INR 0.94; PROTIME 12.6 Sec (12.2-14.2)
[2016-05-15 05:56] LABS: PARTIAL THROMBOPLASTIN TIME 34.9 Sec (25.0-35.0)
[2016-05-15 05:57] LABS: ALBUMIN 3.2 g/dl (3.3-4.9); POTASSIUM 3.9 mmol/L (3.5-5.1)
[2016-05-15 06:00] LABS: ALBUMIN/GLOBULIN RATIO 0.78; BILIRUBIN,INDIRECT 0.2 mg/dl (0-1.1); BILIRUBIN,TOTAL 0.2 mg/dl (0.2-1.3); CREATININE 0.59 mg/dl (0.44-1.00); TOTAL PROTEIN 7.3 g/dl (6.1-8.1); URIC ACID 5.8 mg/dl (3.1-7.9)
[2016-05-15 06:01] LABS: CALCIUM 8.8 mg/dl (8.4-10.2)
[2016-05-15 06:51] LABS: ADD UMIC YES; URINE BILIRUBIN (Dip) NEGATIVE (NEGATIVE); URINE BLOOD (Dip) NEGATIVE (NEGATIVE); URINE COLOR LT. YELLOW (YELLOW); URINE GLUCOSE (Dip) NEGATIVE (NEGATIVE); URINE KETONES (Dip) NEGATIVE (NEGATIVE); URINE LEUKOCYTE ESTERASE (Dip) 1+ (NEGATIVE); URINE NITRITE (Dip) NEGATIVE (NEGATIVE); URINE TOTAL PROTEIN (Dip) NEGATIVE (NEGATIVE); URINE UROBILINOGEN (Dip) 0.2 E.U./dL (0.1-1.0)
[2016-05-15 07:26] LABS: URINE RBCS NONE SEEN /HPF (0)
[2016-05-15] MEDS: LORAZEPAM 2 MG INJ IV PRN (11:15)
[2016-05-15] MEDS: LABETALOL HCL 20MG INJ IV SCH ×4 (11:16→18:12)
[2016-05-15] MEDS: PANTOPRAZOLE 40 MG INJ IV SCH (12:39)
[2016-05-15] MEDS: AMITRIPTYLINE 25 MG TAB PO SCH (20:56)
--- NOTE | 2016-05-15 23:57 | QN ---
Documentation Comment HISTORY AND PHYSICAL HISTORY OF PRESENT ILLNESS: The patient is a 31-year-old 1, last menstrual period 08/24/2015 with estimated date of confinement of 06/09/2016 with an intrauterine at 36 weeks 3 days. The patient has a known history of cyclical vomiting syndrome that she has had her whole life and she did fine for 3 years prior to . During this , she has had multiple exacerbations of this condition. This is her 11th admission. Initially, it was once a month and then it became a little more frequent. It has been a week since her prior admission which lasted several weeks. She ended up with an NGT with pump feedings. The pt was sent home with this and had been doing well although the rate of the Fibersource feedings was at 40cc/hr, instead of the optimal 70cc/hr, as she didn't tolerate it higher. Pt reports when she went home she would sometimes awaken with a very bloated abdomen, at which time she would take Mylicon and turn off the pump and the distention would dissipate and then she would restart the feedings. Normally, during exacerbations, Ativan helps significantly. On prior admissions, we have given her Ativan, Zofran, Diclegis, and Pepcid. she was started on Elavil at the recommendation of the GI specialist. She was initially on 100mg but we have been weaning her to ge off before delivery and she is currently on 25mg. Came in and started on IV hydration, IV Zofran, and Ativan and is feeling better. I believe the Elavil is has helped some. Her blood pressures also normally rise significantly during the exacerbation and then normalize completely as she improves. This blood pressure elevations became more persistent and she was started on Labetalol and she had been taking 200 mg TID. Her bloodwork has always been fine as it is today except her uric acid is actually higher today at 5.9 from a result normally in the 3's. She has had 2 24 hour urine collections with results of 204 (TV 1700cc) and 252 (TV 5050cc). PAST MEDICAL HISTORY: None other than the cyclical vomiting syndrome. PAST SURGICAL HISTORY: None. ALLERGIES: PENICILLIN. MEDICATIONS: 1. Ativan. 2. Zofran. 3. Diclegis. 4. Pepcid. 5. Elavil 25 mg at bedtime. 6. CoQ-10 04/17 EFW 2003 grams or S=D. VTX. ATTILA 15.9. Plts 375K. Glucose 99. ALT/AST . PHYSICAL EXAMINATION: BP 170/106 on admit, better now with averages of 140's/80's to mid 90's T= 98.8 LUNGS: Clear to auscultation. HEART: Regular rate and rhythm. ABDOMEN: Soft, nontender, gravid. PELVIC: Deferred. EXTREMITIES: Nontender. No edema. NST very reactive with good heart rate accelerations. Some UC's today at a few q 10 minutes but pt feels very comfortable with them. ASSESSMENT/Plan 1. Intrauterine at 36 weeks 3 days. 2. Cyclical vomiting syndrome. Meds: Elavil 25 mg daily, Pepcid, Ativan 2 mg q. 6 p.r.n., Zofran 8 mg, IV hydration, and passage of time. 3. Gestational HTN: Labetalol 20 mg IV q 6 hours. PIH labs normal except uric acid of 5.9. 24 hour urine collection will be complete at 0730 05/16. 4. Will restart the tube feedings at 10cc/hr. Pt is dehydrated so will bolus her at 250cc/hr. ANIRUDH COOPER ANDREA J MD May 15, 2016 23:51
[2016-05-16] MEDS: LABETALOL HCL 20MG INJ IV SCH ×3 (00:07→12:08)
[2016-05-16] MEDS: LACTATED RINGER'S 1,000 ML IV SCH ×2 (00:52→07:30)
[2016-05-16] MEDS: PANTOPRAZOLE 40 MG INJ IV SCH (06:15)
[2016-05-16 09:51] LABS: URINE TOTAL PROTEIN 5.9 mg/dl
[2016-05-16 10:16] LABS: SCRET 0.59 mg/dl (0.44-1.00)
[2016-05-16] MEDS ORDERED: LABETALOL 200 MG TAB PO SCH (12:30)
[2016-05-16] MEDS: LABETALOL 100 MG TAB PO SCH ×2 (13:07→18:58)
[2016-05-16] MEDS ORDERED: ACETAMINOPHEN 500 MG TAB PO PRN (21:00)
[2016-05-16] MEDS: AMITRIPTYLINE 25 MG TAB PO SCH (22:09)
[2016-05-17] MEDS: LABETALOL 100 MG TAB PO SCH ×3 (00:04→14:32)
[2016-05-17] MEDS: LORAZEPAM 2 MG INJ IV PRN (03:29)
[2016-05-17] MEDS ORDERED: PANTOPRAZOLE (EC) 40 MG TAB PO SCH (06:00)
--- NOTE | 2016-05-17 15:56 | PD.PPDC ---
MEDICAL OFFICE SCHEDULER Discharge Instruction Condition Patient Condition: Fair Diet Diet: Special Diet Special Diet: NGT with Fibersource feedings and clear liquids as tolerated Activity/Restrictions Activity: Bedrest Restrictions: No Exercising No Driving Minimize Walking Minimize Stair-climbing Follow-up Follow-up with Physician: 2, Day/Days Return to clinic for OB Instructions: Blurried Vision Headache Comment: Epigastric pain. Decreased movement. ANIRUDH COOPER MD May 17, 2016 15:55
[2016-05-17] MEDS ORDERED: LABE100T3 PO (15:58)
--- NOTE | 2016-05-17 16:02 | DS ---
Date/Time of Note Date/Time of Note DATE: 05/17/16 TIME: 15:59 Obstetrical Discharge Record Final Diagnosis Final Diagnosis: not delivered Other Final Diagnosis Cyclic vomiting syndrome. Gestational hypertension. Complications Hyperemesis (Cyclic vomiting syndrome), Preg induced Hypertension Augmentation: No Induction: No Condition on Discharge Physical Assessment Last Vitals: BP 148/93 Voiding: Yes Bowel Movement: Yes Breast: Soft, non-tender Fundus: Firm (Gravid) Calf Tenderness: No Patient Condition: Fair (Pt returning for induction 05/19 at 0800.) ANIRUDH COOPER MD May 17, 2016 16:02
--- NOTE | 2016-05-17 16:08 | QN ---
Documentation Comment Pt had initially vomited even after admission but eventually all calmed down and yesterday began the NGT feeding again at 10cc/hour. Overnight went back up to 30cc/hour. Pt had a bout of pain early this AM so the feeding was stopped for a bit, Ativan was given and all calmed down and the feeding reinitiated.She never vomited. Her BP's on the Labetalol 200 q 6 hours is holding her BP's well. The baby looks great on the NST's.Pt will be 37 weeks on 05/19 so plan to induce pt then. Pt feels well enough to go home so will be d/c'ed but to return on Friday AM at 0800. ANIRUDH COOPER MD May 17, 2016 16:08
== END 2016-05-17 16:35 | disposition home or self-care (01) | DRG 781 ==
LOC: OBT 02:52 → L-D 02:53 → OBT 04:18 → L-D 04:18 → OBG 13:52
PROVIDERS: ADMIT Obstetrics & Gynecology; ATTEND Obstetrics & Gynecology
DX: O21.8 Other vomiting complicating pregnancy (principal); O13.3 Gestational [pregnancy-induced] hypertension without significant proteinuria, third trimester; G43.A0 Cyclical vomiting, in migraine, not intractable; Z3A.36 36 weeks gestation of pregnancy
CPT/HCPCS: 80053; 81001; 81003; 82575; 84156; 84560; 85025; 85610; 85730; 86900; 86901; 87081; 87591; C9113; J2060; J2405; J7120

== ENCOUNTER 2016-05-19 07:58 | Inpatient (IN) | payer BC ==
[~2016-05-19] VITALS: Ht 160 cm; Wt 53.1 kg
[~2016-05-19 07:58] MED LIST changes: -AMIT50TA3 PO; +RANI300T PO
[2016-05-19 08:07] VITALS: Ht 160 cm; Wt 53.1 kg
[2016-05-19] MEDS ORDERED: IBUPROFEN 600 MG TAB PO PRN (08:30)
[2016-05-19] MEDS ORDERED: CARBOPROST 250 MCG INJ IM PRN (08:30)
[2016-05-19] MEDS ORDERED: MISOPROSTOL 200 MCG TAB PR PRN (08:30)
[2016-05-19] MEDS ORDERED: METHYLERGONOVINE 0.2 MG INJ IM PRN (08:30)
[2016-05-19] MEDS ORDERED: OXYTOCIN 30 UNITS/LR 500 ML IV PRN (08:30)
[2016-05-19] MEDS ORDERED: LIDOCAINE 1% (MPF) 30 ML INJ INJ PRN (08:30)
[2016-05-19 08:37] VITALS: BP 139/92; PULSE 75; RESP 18
[2016-05-19] MEDS: LACTATED RINGER'S 1,000 ML IV SCH ×6 (10:02→21:58)
[2016-05-19] MEDS ORDERED: DINOPROSTONE 10 MG VAG SUPP VAG ONE (10:30)
[2016-05-19 10:46] LABS: ADD SCAN DIFF NO
[2016-05-19 11:01] LABS: INR 0.91; PROTIME 12.3 Sec (12.2-14.2)
[2016-05-19 11:02] LABS: PARTIAL THROMBOPLASTIN TIME 29.6 Sec (25.0-35.0)
[2016-05-19 11:11] LABS: BASOPHIL # 0.1 10^3/ul (0.0-0.1); BASOPHILS % 1.2 % (0.0-2.0); EOSINOPHILS # 0.1 10^3/ul (0.0-0.5); HEMATOCRIT 31.9 % (37.0-47.0); HEMOGLOBIN 10.1 g/dl (12.0-16.0); LYMPHOCYTES # 1.2 10^3/ul (0.8-2.9); MEAN CORPUSCULAR HEMOGLOBIN 28.5 pg (29.0-33.0); MEAN CORPUSCULAR HGB CONC 31.7 g/dl (32.0-37.0); MEAN CORPUSCULAR VOLUME 90.1 fl (82.0-101.0); MEAN PLATELET VOLUME 9.9 fl (7.4-10.4); MONOCYTE # 0.5 10^3/ul (0.3-0.9); MONOCYTES % 8.9 % (0.0-11.0); NEUTROPHIL # 3.9 10^3/ul (1.6-7.5); NEUTROPHILS % 65.7 % (39.0-77.0); PLATELET COUNT 356 10^3/UL (140-415); RED BLOOD COUNT 3.54 10^6/ul (4.20-5.40); RED CELL DISTRIBUTION WIDTH 13.8 % (11.5-14.5); WHITE BLOOD COUNT 5.9 10^3/ul (4.8-10.8)
[2016-05-19] MEDS: LABETALOL 200 MG TAB PO SCH ×2 (12:09→18:13)
[2016-05-19] MEDS ORDERED: LACTATED RINGER'S 1,000 ML IV PRN (15:00)
[2016-05-19] MEDS ORDERED: BUTORPHANOL 2 MG INJ IV PRN (17:00)
[2016-05-19] MEDS ORDERED: BUTORPHANOL 2 MG INJ ONE (17:08)
[2016-05-19] MEDS ORDERED: FENTAnyl 2MCG/ML-ROPIV 0.2% 100 ML ONE (20:16)
[2016-05-19] MEDS ORDERED: ONDANSETRON 4 MG INJ IV STA (20:17)
[2016-05-19] MEDS ORDERED: ONDANSETRON 4 MG INJ ONE (20:20)
[2016-05-19] MEDS: FENTAnyl 2MCG/ML-ROPIV 0.2% 100 ML BAG EPI SCH (21:49)
[2016-05-19] MEDS ORDERED: HYDROmorphONE 1 MG/ML SYG IV PRN ×2 (22:00)
[2016-05-19] MEDS ORDERED: NALOXONE (0.4 MG/ML) INJ IV PRN (22:00)
[2016-05-19] MEDS ORDERED: ONDANSETRON 4 MG INJ IV PRN (22:00)
[2016-05-19] MEDS ORDERED: DIPHENHYDRAMINE 50 MG INJ IV PRN (22:00)
[2016-05-20] MEDS: LACTATED RINGER'S 1,000 ML IV SCH ×6 (02:18→16:39)
[2016-05-20] MEDS: FENTAnyl 2MCG/ML-ROPIV 0.2% 100 ML BAG EPI SCH ×2 (03:30→10:37)
[2016-05-20] MEDS ORDERED: PANTOPRAZOLE 40 MG INJ IV SCH (06:00)
[2016-05-20] MEDS: LABETALOL HCL 20MG INJ IV SCH ×3 (06:00→12:02)
[2016-05-20] MEDS ORDERED: OXYTOCIN 30 UNITS/LR 500 ML IV SCH ×2 (07:00→14:00)
--- NOTE | 2016-05-20 07:43 | RADRPT ---
PROCEDURE: US OB. CLINICAL INDICATION: Contractions TECHNIQUE: Multiple sonographic images of the pelvis were obtained. Transabdominal imaging only w as performed. The images were reviewed on a PACS workstation. COMPARISON: No prior studies are available for comparison. FINDINGS: There is a single live intrauterine gestation. Cardiac activity is present with 134 beats per minut e. position is breech. Measurements were made in order to determine age. The results are as follows: BPD = 8.42 cm HC = 31.74 cm AC = 32.48 cm FL = 6.20 cm. Estimated gestational age of approximately 34 weeks 4 days. The estimated date of delivery is 06/27/2016. The EFW = 2561 g, 10 %ile. The placenta is posterior. There is no evidence for an abruption or placenta previa. IMPRESSION: 1. Single live intrauterine gestation of approximately 34 weeks 4 days, by ultrasound criteria. 2. The estimated date of delivery is 06/27/2016. 3. The estimated weight is 2561 g, 10 %ile. RPTAT: HH .Jenny Hernandez MD, MD Date Time Electronically viewed and signed by .Jenny Hernandez MD, on 05/20/2016 07:43 .G/
[2016-05-20] MEDS ORDERED: CLINDAMYCIN 900 MG/D5W (PMX) 50 ML IVPB STA (13:47)
[2016-05-20] MEDS ORDERED: CITRIC ACID/NA CITRATE 30 ML CUP PO STA (13:52)
[2016-05-20] MEDS ORDERED: ONDANSETRON 4 MG INJ IV STA (13:52)
[2016-05-20] MEDS ORDERED: CITRIC ACID/NA CITRATE 30 ML CUP ONE (13:57)
[2016-05-20] MEDS ORDERED: LIDOCAINE 2% (SDV) 5 ML INJ ONE ×2 (14:20→14:55)
[2016-05-20] MEDS ORDERED: OXYTOCIN 10 UNIT INJ ONE ×2 (14:55→15:16)
[2016-05-20] MEDS ORDERED: PHENYLephrine (100 MCG/ML) 5ML SYG ONE (14:55)
[2016-05-20] MEDS ORDERED: DEXAMETHASONE 4 MG/ML 1 ML INJ ONE (15:21)
[2016-05-20] MEDS ORDERED: KETOROLAC 30 MG INJ ONE (15:21)
[2016-05-20] MEDS ORDERED: morphine SULFATE/PF (10 MG/10 ML) INJ ONE (15:26)
[2016-05-20] MEDS ORDERED: NALOXONE (0.4 MG/ML) INJ IV PRN (16:00)
[2016-05-20] MEDS ORDERED: morphine 2 MG INJ IV PRN ×2 (16:00)
[2016-05-20] MEDS ORDERED: ONDANSETRON 4 MG INJ IV PRN (16:00)
[2016-05-20] MEDS ORDERED: PROCHLORPERAZINE 10 MG INJ IV PRN (16:00)
[2016-05-20] MEDS ORDERED: HYDROmorphONE 1 MG/ML SYG IV PRN ×2 (16:00)
[2016-05-20] MEDS ORDERED: KETOROLAC 30 MG INJ IV PRN (16:00)
[2016-05-20] MEDS ORDERED: MEPERIDINE 100 MG INJ ONE (16:28)
[2016-05-20] MEDS ORDERED: LABETALOL HCL 20MG INJ IV PRN (16:30)
[2016-05-20] MEDS ORDERED: MEPERIDINE 25 MG INJ IV PRN (16:30)
[2016-05-20] MEDS: OXYTOCIN 30 UNITS/LR 500 ML IV SCH ×2 (16:39→20:39)
[2016-05-20] MEDS: LABETALOL HCL 20MG INJ IV PRN ×7 (16:59→17:53)
[2016-05-20] MEDS ORDERED: METHYLERGONOVINE 0.2 MG INJ IM PRN (17:00)
[2016-05-20] MEDS ORDERED: MISOPROSTOL 200 MCG TAB PR PRN (17:00)
[2016-05-20] MEDS ORDERED: LANOLIN 7 GM TUBE TOP PRN (17:00)
[2016-05-20] MEDS ORDERED: OXYCODONE/ACETAMINOPHEN (5/325) TAB PO PRN ×2 (17:00)
[2016-05-20] MEDS ORDERED: OXYTOCIN 30 UNITS/LR 500 ML IV PRN (17:00)
[2016-05-20] MEDS ORDERED: CARBOPROST 250 MCG INJ IM PRN (17:00)
[2016-05-20] MEDS ORDERED: MAGNESIUM SULFATE 4 GM/100 ML 100 ML ONE (18:13)
[2016-05-20] MEDS: DIPHENHYDRAMINE 50 MG INJ IV PRN ×2 (18:29→20:13)
[2016-05-20] MEDS ORDERED: MAGNESIUM SULFATE 4 GM/100 ML 100 ML IVPB ONE (18:30)
[2016-05-20] MEDS: MAGNESIUM SULFATE 20 GM/500 ML 500 ML IV SCH (18:47)
[2016-05-20 19:33] VITALS: BP 156/70; PULSE 68; RESP 18
[2016-05-20] MEDS: KETOROLAC 30 MG INJ IV PRN (20:13)
[2016-05-20 20:34] VITALS: BP 147/77; PULSE 70; RESP 16
[2016-05-20] MEDS ORDERED: LACTATED RINGER'S 1,000 ML IV SCH (21:00)
[2016-05-20] MEDS ORDERED: OXYTOCIN 30 UNITS/LR 500 ML IV ONE (21:00)
[2016-05-20 21:19] VITALS: BP 151/78; PULSE 71; RESP 18
[2016-05-20] MEDS: IBUPROFEN 800 MG TAB PO SCH (22:00)
[2016-05-20 22:05] VITALS: BP 108/75; PULSE 93; RESP 18
[2016-05-20 23:34] VITALS: BP 132/74; PULSE 70; RESP 17
[2016-05-21] VITALS (19 sets, daily range): BP systolic 114–153; BP diastolic 63–94; PULSE 65–81; RESP 16–18
[2016-05-21] MEDS: LABETALOL HCL 20MG INJ IV SCH ×2 (00:01→05:59)
[2016-05-21] MEDS: LACTATED RINGER'S 1,000 ML IV SCH ×3 (00:39→18:57)
[2016-05-21] MEDS: KETOROLAC 30 MG INJ IV PRN ×2 (04:00→14:28)
[2016-05-21] MEDS ORDERED: DIPHENHYDRAMINE 50 MG INJ IV PRN (04:00)
[2016-05-21] MEDS: MAGNESIUM SULFATE 20 GM/500 ML 500 ML IV SCH ×2 (04:33→14:33)
--- NOTE | 2016-05-21 04:35 | OPR ---
DATE OF OPERATION: 05/20/2016 PREOPERATIVE DIAGNOSES: 1. Intrauterine at 37 weeks 1 day. 2. Gestational hypertension. 3. Cyclic vomiting requiring hospitalization antepartum. 4. Breech presentation. POSTOPERATIVE DIAGNOSES: 1. Intrauterine at 37 weeks 1 day. 2. Gestational hypertension. 3. Cyclic vomiting requiring hospitalization antepartum. 4. Breech presentation. 5. Status post delivery of a viable male weighing 2635 grams or 5 pounds 13 ounces with Apga r scores of 4, 9, and 9. OPERATION PERFORMED: Primary low transverse section. SURGEON: Tulio Smalls MD STERILE PROCESSING TECH: Dr. Eaton ANESTHESIA: Dr. Treadwell with an epidural. ESTIMATED BLOOD LOSS: 500 mL COMPLICATIONS: None other than adequate IV access. The patient had adequate IV access the whole ti me; however, it was not optimal. Therefore, 2 lines were placed. DESCRIPTION OF PROCEDURE: The patient was brought to the operating room, placed on the operating ro om table, and additional medication was given through her epidural catheter prior to entry to the OR . When anesthesia was adequate, the patient had had a Reed catheter placed, and she was prepped an d draped in usual sterile fashion. Pfannenstiel incision was made using a knife through the skin an d subcutaneous tissue down to the level of the fascia. Fascia was incised and extended bilaterally using scissors. The superior edge and fascia was then grasped with Princess clamps, and the rectus mu scles were from the overlying fascia using blunt dissection and Bovie cautery. This was r epeated at the lower edge of the incision as well and the rectus muscles were in the midli ne using a Janett clamp, and the anterior peritoneum was bluntly entered using the surgeon's fingers. The incision was then stretched open with hands. A bladder blade and Patricia retractor were pl aced in the incision. Bladder flap was developed using Metzenbaum scissors. High lower uterine seg ment cut was made with a knife, and then the uterus was then entered using a Janett clamp. The incis ion was then stretched open with the surgeon's hands. The fluid was clear. Both feet were brought up into the incision. With gentle fundal pressure, the legs were fully delivered. The baby was the n delivered up to the shoulder blades. Each hand was delivered, and then the head was delivered wit h finger in the mouth to maintain flexion of the head. The cord was doubly clamped and cut, and the baby was brought over to the warmer. A segment of cord was held for gases just in case. The color of the baby looked good and had good muscle town but was holding its breath. Cord blood was then o btained normally. The placenta was then manually extracted. Uterus was externalized, wrapped in a moist lap, and a dry lap was used to clean the interior of the uterus. The incision was then closed in 2 layers using #1 chromic in a running locking stitch with excellent tissue approximation and he mostasis. The whole closure was well above the area of the bladder. Tubes and ovaries were examine d and noted to be normal. There was one adhesion between the posterior uterine wall and the omentum . This was cut with cautery. The pelvis was irrigated well. Uterus was replaced back into the abd omen. Incision examined again and noted to be dry. The anterior peritoneum was then closed using 2 -0 chromic in a running stitch. The rectus muscles were brought back together at midline with a run ibrahima stitch of the same material. The underbelly of the fascia was examined and noted to be dry. T he fascia was then closed using 0 Vicryl suture in a running stitch from each lateral edge to midlin e with overlap at the midline. The subcutaneous tissue was then irrigated well, cautery applied whe re needed for hemostasis. That layer was then closed with 2-0 chromic in a running stitch in 2 laye rs, and the skin was then closed with 3-0 Monocryl in a subcuticular stitch. Steri-Strips with Mast isol were placed at the end of the procedure. Then, a pressure dressing was applied overall. The p atient tolerated the procedure very well and was brought to recovery room in excellent condition. Dictated By: TULIO STEELE/HENNY Conf#: [id number] DID#: [id number]
[2016-05-21 05:55] LABS: ADD SCAN DIFF NO
[2016-05-21 05:56] LABS: ABNORMAL IP MESSAGE 1; BASOPHILS % 0.1 % (0.0-2.0); HEMATOCRIT 33.6 % (37.0-47.0); HEMOGLOBIN 10.9 g/dl (12.0-16.0); LYMPHOCYTES # 1.7 10^3/ul (0.8-2.9); LYMPHOCYTES % 7.9 % (15.0-51.0); MEAN CORPUSCULAR HEMOGLOBIN 28.8 pg (29.0-33.0); MEAN CORPUSCULAR HGB CONC 32.4 g/dl (32.0-37.0); MEAN CORPUSCULAR VOLUME 88.7 fl (82.0-101.0); MEAN PLATELET VOLUME 9.6 fl (7.4-10.4); MONOCYTE # 1.7 10^3/ul (0.3-0.9); MONOCYTES % 7.7 % (0.0-11.0); NEUTROPHILS % 83.8 % (39.0-77.0); PLATELET COUNT 393 10^3/UL (140-415); RED BLOOD COUNT 3.79 10^6/ul (4.20-5.40); RED CELL DISTRIBUTION WIDTH 14.4 % (11.5-14.5); WHITE BLOOD COUNT 21.5 10^3/ul (4.8-10.8)
[2016-05-21] MEDS: IBUPROFEN 800 MG TAB PO SCH ×3 (06:00→22:19)
[2016-05-21] MEDS: PANTOPRAZOLE 40 MG INJ IV SCH (06:00)
--- NOTE | 2016-05-21 07:09 | OPPN ---
Date/Time of Note Date/Time of Note DATE: 05/21/16 TIME: 07:08 Post-Anesthesia Notes Post-Anesthesia Note Last documented vital signs Vital Signs Date Time Temp Pulse Resp B/P Pulse Ox O2 Delivery O2 Flow Rate FiO2 05/21/16 06:14 75 18 129/84 99 Room Air 05/21/16 04:50 97.7 Activity: WNL Respiratory function: WNL Cardiovascular function: WNL Mental status: Baseline Pain reasonably controlled: Yes Hydration appropriate: Yes Nausea/Vomiting absent: Yes AUDREY RUBY MD May 21, 2016 07:09
[2016-05-21] MEDS ORDERED: LABETALOL 200 MG TAB NGT SCH ×2 (12:00→21:00)
[2016-05-21] MEDS: LABETALOL 200 MG TAB NGT SCH ×2 (18:49→23:53)
[2016-05-21] MEDS ORDERED: LACTATED RINGER'S 1,000 ML IV ONE (19:00)
[2016-05-22] VITALS: BP 117/64; PULSE 73; RESP 18
[2016-05-22 04:00] VITALS: BP 136/91; PULSE 82; RESP 18
[2016-05-22] MEDS: PANTOPRAZOLE 40 MG INJ IV SCH (05:32)
[2016-05-22] MEDS: IBUPROFEN 800 MG TAB PO SCH (05:48)
[2016-05-22] MEDS: LABETALOL 200 MG TAB NGT SCH ×3 (05:49→18:13)
[2016-05-22] MEDS: LACTATED RINGER'S 1,000 ML IV SCH ×2 (07:01→20:10)
[2016-05-22 08:18] LABS: ADD SCAN DIFF NO
[2016-05-22 08:25] VITALS: BP 116/80; PULSE 76; RESP 18
[2016-05-22 08:36] LABS: BASOPHILS % 0.2 % (0.0-2.0); EOSINOPHILS # 0.1 10^3/ul (0.0-0.5); EOSINOPHILS % 0.5 % (0.0-7.0); HEMATOCRIT 32.1 % (37.0-47.0); HEMOGLOBIN 10.1 g/dl (12.0-16.0); LYMPHOCYTES # 1.3 10^3/ul (0.8-2.9); LYMPHOCYTES % 12.6 % (15.0-51.0); MEAN CORPUSCULAR HEMOGLOBIN 28.5 pg (29.0-33.0); MEAN CORPUSCULAR HGB CONC 31.5 g/dl (32.0-37.0); MEAN CORPUSCULAR VOLUME 90.7 fl (82.0-101.0); MEAN PLATELET VOLUME 9.8 fl (7.4-10.4); MONOCYTE # 0.6 10^3/ul (0.3-0.9); MONOCYTES % 5.9 % (0.0-11.0); NEUTROPHIL # 8.1 10^3/ul (1.6-7.5); NEUTROPHILS % 80.4 % (39.0-77.0); PLATELET COUNT 363 10^3/UL (140-415); RED BLOOD COUNT 3.54 10^6/ul (4.20-5.40); RED CELL DISTRIBUTION WIDTH 14.6 % (11.5-14.5); WHITE BLOOD COUNT 10.1 10^3/ul (4.8-10.8)
[2016-05-22] MEDS: KETOROLAC 30 MG INJ IV PRN ×2 (11:15→23:03)
[2016-05-22 12:20] VITALS: BP 146/89; PULSE 70; RESP 19
[2016-05-22 16:10] VITALS: BP 145/91; PULSE 71; RESP 20
[2016-05-22 20:00] VITALS: BP 147/78; PULSE 72; RESP 20
--- NOTE | 2016-05-22 22:43 | QN ---
Documentation Comment POD #2 Pt is doing well and feeling much better. She states her belly now feels like before she got . Is very anxious to try eating or at least having a soft diet. + Flatus. On Toradol only and doing well re: pain. Still on Labetalol 200 QID. BP's are generally 140's/80's. Afebrile. Incision clean. dry, and intact. Lochia moderate. Ext: NT, no edema. WBC 10.1 decreased from 21K. P: Increase NGT feeding to 70cc/hour, up from 30cc/hour, overnight. If tolerates then can go to full liquid diet. If tolerates then will pull the NGT. Will consider decreasing the Labetalol dose or dosing schedule, depending on the BP's overnight. ANIRUDH COOPER MD May 22, 2016 22:43
[2016-05-23] VITALS: BP 143/89; PULSE 79; RESP 20
[2016-05-23] MEDS: LABETALOL 200 MG TAB NGT SCH ×4 (00:46→17:23)
--- NOTE | 2016-05-23 02:36 | PREOPHP ---
DATE OF ADMISSION: 05/19/2016 HISTORY OF PRESENT ILLNESS: Patient is a 30-year-old 1 with estimated date of confinement at 37 weeks 1 day, admitted on the for an induction. The patient has been vertex her entire . She was given Cervidil at first. On exam, it was thought that the baby was vertex, came in at lunchtime on the to break her bag of water and the patient was 8 cm. When they broke her water, she was quite obviously breech. Of note, an ultrasound had been done that morning as the patient just requested one to see how big the baby was and was noted to be breech but tech did not say anything to anybody and the ultrasound was not checked. Reason for induction at 37 weeks, the patient has had a difficult with cyclic vomiting syndrome requiring numerous hospitalizations, initially once a month, then 2 weeks and then seemingly continuously. At her last hospitalization, we gave her an NG tube which she has had in now a few weeks, both while she was here and she was able to go home for 1 week. She came back for a couple of days the end of last week and decided to induce her. Of note, also the patient has had significant gestational hypertension with very elevated blood pressures necessitating labetalol 200 mg, now at 4 times a day every 6 hours, just barely keeping it under control. A 24 hour urine, the last one was normal. All her labs, platelets, liver function tests, everything have always been fairly normal. The patient also has reflux and is currently on Protonix once a day. We have kept the NG tube in during the labor process with the idea of seeing how she does after delivery and then considering discontinuing it at that time. PAST SURGICAL HISTORY: None. ALLERGIES: PENICILLIN. LABORATORY WORK: Blood type O positive, antibody screen negative, serology nonreactive, rubella immune. Initial hemoglobin 13.4. We never did 1 hour glucose as we could never have her be good enough long enough. First and second trimester screens with the nuchal translucency ultrasound were normal. TSH normal. Hepatitis C antibody, hepatitis B surface antigen negative, HIV negative. Platelets were normal. MCV 90. Gonorrhea and chlamydia cultures were negative. The patient had noninvasive testing which was normal, showed a male fetus with normal chromosomes 21,18, 13, 9 and 16. Genetic screening for cystic fibrosis, spinal muscular atrophy and fragile X were all negative. Group B strep culture was negative. PHYSICAL EXAMINATION: The patient is 5 feet 3 inches. Weight was 53 kg or 117 pounds. The patient started at 110 pounds. HEART: Regular rate and rhythm. LUNGS: Clear to auscultation. ABDOMEN: Soft, nontender, gravid. PELVIC: She was 8 cm, breech. EXTREMITIES: Nontender, no edema. ASSESSMENT: 1. Intrauterine at 37 weeks 1 day. 2. Breech. 3. Active labor. 4. Cyclic vomiting syndrome. 5. Gastroesophageal reflux. PLAN: Primary low transverse section urgently. Dictated By: ANIRUDH STEELE/HENNY Conf#: [id number] DID#: [id number] MTDD
[2016-05-23] MEDS: KETOROLAC 30 MG INJ IV PRN ×3 (05:01→17:17)
[2016-05-23] MEDS: LACTATED RINGER'S 1,000 ML IV SCH ×2 (05:01→16:02)
[2016-05-23] MEDS: PANTOPRAZOLE 40 MG INJ IV SCH (05:59)
[2016-05-23 06:00] VITALS: BP 144/86; PULSE 69; RESP 20
[2016-05-23 07:30] VITALS: BP 153/87; PULSE 72; RESP 18
[2016-05-23] MEDS ORDERED: DIPHTH/TET/ACEL PERTUSS (ADULT) 0.5 ML VIAL IM* ONE (09:00)
[2016-05-23] MEDS ORDERED: IBUPROFEN LIQUID (PED) 20 MG/ML CUP NGT PRN (10:00)
[2016-05-23 12:05] VITALS: BP 138/85; PULSE 70; RESP 20
[2016-05-23 15:49] VITALS: BP 160/78; PULSE 56; RESP 20
[2016-05-23] MEDS ORDERED: IBUPROFEN 800 MG TAB PO PRN (18:30)
[2016-05-23 20:00] VITALS: BP 136/88; PULSE 79; RESP 18
[2016-05-23] MEDS: IBUPROFEN 800 MG TAB PO PRN (23:05)
[2016-05-24] VITALS: BP 126/58; PULSE 57; RESP 20
[2016-05-24] MEDS ORDERED: IBUPROFEN 800 MG TAB PO PRN
[2016-05-24] MEDS: LABETALOL 200 MG TAB NGT SCH (00:02)
[2016-05-24] MEDS: LACTATED RINGER'S 1,000 ML IV SCH ×2 (01:27→09:59)
--- NOTE | 2016-05-24 04:40 | PN ---
DATE: 05/23/16 SUBJECTIVE: The patient is doing well today. No nausea or vomiting. Pt wants to take the NG tube out. We advanced her to full liquids. She did fine. We took the NG tube out, and she is now eating. OBJECTIVE: The patient is in very good spirits. Her blood pressures have ranged in the 130s/80s. Incision is clean, dry, and intact. PLAN: Decreasing the labetalol from 200 four times a day to three times a day. I am planning discharge for her tomorrow pending BP stability and tolerance of a regular diet. Dictated By: ANIRUDH STEELE/HENNY Conf#: [id number] DID#: [id number] MTDD
[2016-05-24 04:48] VITALS: BP 148/69; PULSE 72; RESP 20
[2016-05-24] MEDS: IBUPROFEN 800 MG TAB PO PRN ×3 (04:48→16:02)
[2016-05-24] MEDS: PANTOPRAZOLE 40 MG INJ IV SCH (05:43)
[2016-05-24 08:20] VITALS: BP 149/80; PULSE 70; RESP 17
[2016-05-24] MEDS: LABETALOL 200 MG TAB PO SCH ×2 (08:38→14:01)
[2016-05-24 14:00] VITALS: BP 158/92; PULSE 62; RESP 16
--- NOTE | 2016-05-24 14:32 | PD.PPDC ---
ORTHODONTIC BAND MAKER Discharge Instruction Diagnosis Final Diagnosis: s/p primary section for breech presentation PIH Condition Patient Condition: Stable Diet Diet: Resume Regular Diet Activity/Restrictions Activity: May Shower Restrictions: No Lifting Minimize Stair-climbing No Sexual Activity Nothing in the Vagina No [place] No Tampons, douche Follow-up Follow-up with Physician: Week/Weeks Return to clinic for SALESFORCE ADMINISTRATOR Instructions: Fever greater than 101 Chills Worsening abdominal pain Excessive Vaginal Bleeding More than 2 pads per hour Unable to tolerate diet OB Instructions: Breast Tenderness Depression Blurried Vision Headache Surgical Instructions: Incisional Drainage Incisional Redness CIARA AVELAR MD May 24, 2016 14:32
--- NOTE | 2016-05-24 14:41 | DS ---
Date/Time of Note Date/Time of Note DATE: 05/24/16 TIME: 14:36 Obstetrical Discharge Record Final Diagnosis Final Diagnosis: Term delivered Other Final Diagnosis breech presentation PIH Section Section: Primary Complications Induction: Yes Condition on Discharge Physical Assessment Last Vitals: 158/92 afebrile hospitalist [id number] on 05/24/16 1435 called he will be here to see patient vervally nifedipine ordered Voiding: Yes Bowel Movement: Yes Breast: Soft, non-tender Fundus: Firm Abdomen and Incision: soft wound dry Calf Tenderness: No Patient Condition: Stable CIARA AVELAR MD May 24, 2016 14:41
[2016-05-24 16:22] VITALS: BP 128/83; PULSE 78; RESP 16; RESP 17
--- NOTE | 2016-05-24 18:27 | CONS ---
DATE OF ADMISSION: 05/19/2016 DATE OF CONSULTATION: 05/24/2016 REASON FOR CONSULTATION: Hypertension. HISTORY OF PRESENT ILLNESS: The patient is a 31-year-old female with no significant medical history . The patient is status post section for breech presentation. The patient was hypertensiv e after the delivery. The patient was put on labetalol and blood pressure was still high. It did i mprove ultimately with return to normal limits. The patient was on labetalol the last month of her . Consult was requested for BP control and recommendations. The patient has no medical hi story of hypertension prior to this , and she has no cardiac history. PAST MEDICAL HISTORY: Negative. PAST SURGICAL HISTORY: during this hospitalization. HOME MEDICATIONS: 1. Labetalol 200 t.i.d. 2. Ativan. 3. Zofran. 4. Ranitidine. ALLERGIES: PENICILLIN, METOCLOPRAMIDE. FAMILY HISTORY: Noncontributory. SOCIAL HISTORY: Denies any alcohol, tobacco, or drug abuse. REVIEW OF SYSTEMS: A 12-point review is negative except as in HPI. PHYSICAL EXAMINATION: VITAL SIGNS: Temperature is 98.0, pulse 70, respiratory 17, BP is 120/83, saturation 95% on room ai r. GENERAL: No acute distress, alert and oriented. HEENT: Normocephalic, atraumatic. LUNGS: Clear to auscultation. CARDIOVASCULAR: Regular rate and rhythm. ABDOMEN: Nondistended, nontender, soft. EXTREMITIES: No clubbing, cyanosis, or edema. ASSESSMENT AND PLAN: Hypertension. Blood pressure now is controlled on labetalol 200 mg p.o. q. 8 hours. The patient's blood pressure was slightly elevated earlier. This could be secondary to her being anxious to leave the hospital. Currently, it is once again stable. Recommendation is to discontinue her home labet alol 200 p.o. q.8 hours, which she already has. This has been told to the patient's nurse who state s that she relayed to the OB. Thank you for this consultation. Dictated By: CHARLENE MCDONOUGH MD BS/NTS Conf#: [id number] DID#: [id number]
[2016-05-28 17:02] LABS: RUBELLA ANTIBODY - IGG 0.93 index
== END 2016-05-24 18:14 | disposition home or self-care (01) | DRG 766 ==
LOC: L-D 07:58 → PP1 05-21 11:26
PROVIDERS: ADMIT Obstetrics & Gynecology; ATTEND Obstetrics & Gynecology
PROC: 10D00Z1 Extraction of Products of Conception, Low, Open Approach (ICD-10-PCS; principal; 2016-05-19 08:00)
DX: O32.1XX0 Maternal care for breech presentation, not applicable or unspecified (principal); O13.4 Gestational [pregnancy-induced] hypertension without significant proteinuria, complicating childbirth; Z3A.37 37 weeks gestation of pregnancy; Z37.0 Single live birth
CPT/HCPCS: 62319; 76815; 83735; 85025; 85610; 85730; 86592; 86762; 86885; 86900; 86901; 90715; 99464; C9113; J1100; J1170; J1200; J1885; J2175; J2274; J2370; J2405; J2590; J3010; J3475; J7120

== ENCOUNTER 2016-06-05 06:34 | Emergency (ER) | payer BC ==
[~2016-06-05] VITALS: Ht 160 cm; Wt 47.5 kg
[2016-06-05 06:51] VITALS: Ht 160 cm; Wt 47.5 kg
[2016-06-05 06:54] VITALS: TEMP 99.4
[2016-06-05] MEDS ORDERED: ONDANSETRON 4 MG INJ IV STA ×2 (06:59→11:54)
[2016-06-05] MEDS ORDERED: FAMOTIDINE 20 MG INJ IV STA (06:59)
[2016-06-05] MEDS ORDERED: morphine 4 MG/ML VIAL IV STA ×2 (06:59→11:54)
[2016-06-05] MEDS ORDERED: SOD CHLORIDE 0.9% 1,000 ML IV STA (06:59)
[2016-06-05] MEDS ORDERED: LORAZEPAM 2 MG INJ IV ONE ×2 (07:00→12:00)
[2016-06-05] MEDS ORDERED: LABE200T25 PO (07:32)
[2016-06-05 07:47] LABS: ADD SCAN DIFF NO
[2016-06-05 07:49] LABS: BASOPHIL # 0.1 10^3/ul (0.0-0.1); BASOPHILS % 1.5 % (0.0-2.0); EOSINOPHILS # 0.1 10^3/ul (0.0-0.5); EOSINOPHILS % 1.2 % (0.0-7.0); HEMATOCRIT 36.4 % (37.0-47.0); HEMOGLOBIN 11.2 g/dl (12.0-16.0); LYMPHOCYTES # 1.2 10^3/ul (0.8-2.9); LYMPHOCYTES % 16.9 % (15.0-51.0); MEAN CORPUSCULAR HEMOGLOBIN 28.2 pg (29.0-33.0); MEAN CORPUSCULAR HGB CONC 30.8 g/dl (32.0-37.0); MEAN CORPUSCULAR VOLUME 91.7 fl (82.0-101.0); MEAN PLATELET VOLUME 8.3 fl (7.4-10.4); MONOCYTE # 0.5 10^3/ul (0.3-0.9); MONOCYTES % 6.6 % (0.0-11.0); NEUTROPHILS % 73.5 % (39.0-77.0); PLATELET COUNT 530 10^3/UL (140-415); RED BLOOD COUNT 3.97 10^6/ul (4.20-5.40); RED CELL DISTRIBUTION WIDTH 14.4 % (11.5-14.5); WHITE BLOOD COUNT 6.8 10^3/ul (4.8-10.8)
[2016-06-05 08:13] LABS: ALBUMIN/GLOBULIN RATIO 1.08; BILIRUBIN,INDIRECT 0.5 mg/dl (0-1.1); BILIRUBIN,TOTAL 0.5 mg/dl (0.2-1.3); CALCIUM 9.1 mg/dl (8.4-10.2); CREATININE 0.67 mg/dl (0.44-1.00); POTASSIUM 3.4 mmol/L (3.5-5.1); TOTAL PROTEIN 7.7 g/dl (6.1-8.1)
[2016-06-05] MEDS ORDERED: TRIMETHOBENZAMIDE 100 MG/ML VIAL IM ONE (09:00)
--- NOTE | 2016-06-05 13:59 | ERA ---
ER Documentation Chief Complaint Date/Time DATE: 06/05/16 TIME: 13:53 Chief Complaint N/V HPI This 31-year-old female presents emergency room for nausea and vomiting for 2 days. She says nonradiating upper abdominal pain. She is vomited many times and now the vomitus stomach acid. She gave vaginally 2 weeks ago. She has a history of cyclic vomiting syndrome prior to her and has had to be admitted to the hospital several times for it. She says the medication that works best is Ativan. Denies fever and chills. ROS All systems reviewed and are negative except as per history of present illness. Medications Home Meds Reported Medications Labetalol Hcl* (Labetalol Hcl*) 200 Mg Tablet, 200 MG PO TID, TAB 06/05/16 Ranitidine Hcl* (Ranitidine Hcl*) 300 Mg Tablet, 300 MG PO DAILY, #30 TAB 05/15/16 Lorazepam* (Lorazepam*) 1 Mg Tablet, 1 MG PO BID Y for VOMITTING, #30 TAB 03/25/16 Discontinued Reported Medications Doxylamine/Pyridoxine Hcl (DICLEGIS DR 10-10 MG TABLET) 1 Each Tablet.dr, 4 TAB PO DAILY, TAB TAKE 2-4 TAB DAILY,2TAB QHS ,IF NEEDED CAN GO TO 1TAB AM 1TAB AFTERNOON AND 2TAB QHS 12/19/15 Ondansetron Hcl* (Zofran*) 4 Mg Tab, 4 MG PO Q4H Y for NAUSEA AND OR VOMITING, TAB 11/13/15 Discontinued Scripts Labetalol Hcl* (Labetalol Hcl*) 100 Mg Tablet, 200 MG PO Q6 for 2 Days, #8 TAB Prov:ANIRUDH COOPER MD 05/17/16 Allergies Allergies: Coded Allergies: metoclopramide (Verified Allergy, Mild, 06/05/16) Penicillins (Verified Allergy, Unknown, 06/05/16) PMhx/Soc History of Surgery: Yes ( 2 weeks ago) Anesthesia Reaction: No Hx Neurological Disorder: No Hx Respiratory Disorders: No Hx Cardiac Disorders: No Hx Psychiatric Problems: No Hx Miscellaneous Medical Probl: Yes (cyclic vomiting syndrome) Hx Alcohol Use: No Hx Substance Use: No Hx Tobacco Use: No Smoking Status: Never smoker Physical Exam Vitals Vital Signs Date Time Temp Pulse Resp B/P Pulse Ox O2 Delivery O2 Flow Rate FiO2 06/05/16 12:57 73 14 129/83 97 Room Air 06/05/16 11:26 88 16 143/102 100 Room Air 06/05/16 08:34 64 16 145/86 98 Room Air 06/05/16 07:19 165/108 06/05/16 06:54 99.4 88 18 157/124 100 Room Air 06/05/16 06:51 99.4 88 18 157/124 100 Physical Exam Const: [] Moderate distress Head: Atraumatic Eyes: Normal Conjunctiva ENT: Normal External Ears, Nose and Mouth. Neck: Full range of motion..~ No meningismus. Resp: Clear to auscultation bilaterally Cardio: Regular rate and rhythm, no murmurs Abd: Soft, mild to moderate epigastric abdominal pain without guarding or rebound, non distended. Normal bowel sounds Skin: No petechiae or rashes Back: No midline or flank tenderness Ext: No cyanosis, or edema Neur: Awake and alert Psych: Normal Mood and Affect Result Diagram: 06/05/1615 06/05/16 0715 Results 24 hrs Laboratory Tests Test 06/05/16 07:15 White Blood Count 6.810^3/ul Red Blood Count 3.9710^6/ul Hemoglobin 11.2g/dl Hematocrit 36.4% Mean Corpuscular Volume 91.7fl Mean Corpuscular Hemoglobin 28.2pg Mean Corpuscular Hemoglobin Concent 30.8g/dl Red Cell Distribution Width 14.4% Platelet Count 83834^3/UL Mean Platelet Volume 8.3fl Neutrophils % 73.5% Lymphocytes % 16.9% Monocytes % 6.6% Eosinophils % 1.2% Basophils % 1.5% Nucleated Red Blood Cells % 0.0/100WBC Neutrophils # 5.010^3/ul Lymphocytes # 1.210^3/ul Monocytes # 0.510^3/ul Eosinophils # 0.110^3/ul Basophils # 0.110^3/ul Nucleated Red Blood Cells # 0.010^3/ul Sodium Level 138mmol/L Potassium Level 3.4mmol/L Chloride Level 105mmol/L Carbon Dioxide Level 23mmol/L Anion Gap 13 Blood Urea Nitrogen 8mg/dl Creatinine 0.67mg/dl Glucose Level 77mg/dl Lactic Acid Level 1.2mmol/L Calcium Level 9.1mg/dl Total Bilirubin 0.5mg/dl Direct Bilirubin 0.00mg/dl Indirect Bilirubin 0.5mg/dl Aspartate Amino Transf (AST/SGOT) 34IU/L Alanine Aminotransferase (ALT/SGPT) 31IU/L Alkaline Phosphatase 131IU/L Total Protein 7.7g/dl Albumin 4.0g/dl Globulin 3.70g/dl Albumin/Globulin Ratio 1.08 Lipase 80U/L Current Medications Medications (Trade) Dose Ordered Sig/Laith Route PRN Reason Start Time Stop Time Status Last Admin Dose Admin Sodium Chloride (NS) 1,000 ml @ 1,000 mls/hr Q1H STAT IV 06/05/16 06:59 06/05/16 07:58 DC 06/05/16 07:10 Ondansetron HCl (Zofran Inj) 8 mg ONCE STAT IV 06/05/16 06:59 06/05/16 07:04 DC 06/05/16 07:09 Famotidine (Pepcid Iv) 20 mg ONCE STAT IV 06/05/16 06:59 06/05/16 07:04 DC 06/05/16 07:10 Lorazepam (Ativan) 2 mg ONCE ONCE IV 06/05/16 07:00 06/05/16 07:04 DC 06/05/16 07:07 Morphine Sulfate (morphine) 4 mg ONCE STAT IV 06/05/16 06:59 06/05/16 07:04 DC 06/05/16 07:09 Trimethobenzamide HCl (Tigan) 200 mg ONCE ONCE IM 06/05/16 09:00 06/05/16 09:01 DC 06/05/16 09:17 Lorazepam (Ativan) 2 mg ONCE ONCE IV 06/05/16 12:00 06/05/16 12:01 DC 06/05/16 12:01 Morphine Sulfate (morphine) 4 mg ONCE STAT IV 06/05/16 11:54 06/05/16 11:55 DC 06/05/16 12:01 Ondansetron HCl (Zofran Inj) 4 mg ONCE STAT IV 06/05/16 11:54 06/05/16 11:55 DC 06/05/16 12:01 Ondansetron HCl (Zofran Inj) 4 mg BRIDGE ORDER PRN IV NAUSEA AND/OR VOMITING 06/05/16 14:30 06/06/16 14:29 Acetaminophen (Tylenol Tab) 650 mg ER BRIDGE PRN PO MILD PAIN/FEVER 06/05/16 14:30 06/06/16 14:29 Procedures/MDM Intractable nausea and vomiting patient with cyclic vomiting syndrome. She is given IV fluids as well as Ativan, Zofran, morphine. This improved her nausea initially but it came back. She was then administered Tigan. She thought she felt a little better from this and tried ice chips which she began vomiting. Then administered more Zofran as well as more Ativan and morphine. Is again worked for a short time. She'll need to be admitted for hydration and further treatment of her nausea and vomiting as if she went home she would probably come back for dehydration and vomiting. Did not want to do a CT abdomen and pelvis at this time and she has a history of this in a fairly benign abdominal exam and it is slowly improving condition. We'll defer CAT scanning to admitting team as not feels indicated yet. She has no signs of sepsis or acute infection. Spoke with Dr. Solis who is admitting the patient. Departure Diagnosis: Primary Impression: Intractable vomiting with nausea Condition: Stable SABRINA MORGAN DO Jun 05, 2016 13:59
[2016-06-05] MEDS ORDERED: ONDANSETRON 4 MG INJ IV PRN (14:30)
[2016-06-05] MEDS ORDERED: ACETAMINOPHEN 325 MG TAB PO PRN (14:30)
[2016-06-05 15:04] VITALS: BP 135/102; PULSE 82; RESP 16
[2016-06-05] MEDS ORDERED: ONDA4TAB14 PO (15:10)
== END 2016-06-05 15:52 | disposition home or self-care (01) ==
LOC: E/R 06:34
DX: R11.2 Nausea with vomiting, unspecified (principal); R40.2142 Coma scale, eyes open, spontaneous, at arrival to emergency department; R40.2252 Coma scale, best verbal response, oriented, at arrival to emergency department; R40.2362 Coma scale, best motor response, obeys commands, at arrival to emergency department
CPT/HCPCS: 80053; 83605; 83690; 85025; J2060; J2270; J2405; J3250; J7030; 96372; 96374; 96375; 96376

== ENCOUNTER 2016-06-06 05:39 | Inpatient (IN) | payer BC ==
[~2016-06-06] VITALS: Ht 160 cm; Wt 49.1 kg
[~2016-06-06 05:39] MED LIST changes: -DOXY1TAB3 PO; -LABE100T3 PO; +LABE200T25 PO; -ONDA-43 PO; +ONDA4TAB14 PO
[2016-06-06] MEDS ORDERED: SOD CHLORIDE 0.9% 1,000 ML IV STA (06:30)
[2016-06-06] MEDS ORDERED: LORAZEPAM 2 MG INJ IV ONE ×4 (06:30→10:30)
[2016-06-06 06:42] LABS: URINE BLOOD (Dip) POC 2+ (NEGATIVE)
[2016-06-06] MEDS ORDERED: DEXTROSE 5%-0.45% NACL 1,000 ML IV ONE (07:00)
[2016-06-06 07:08] LABS: ADD UMIC YES; URINE BILIRUBIN (Dip) NEGATIVE (NEGATIVE); URINE BLOOD (Dip) 3+ (NEGATIVE); URINE COLOR LT. YELLOW (YELLOW); URINE GLUCOSE (Dip) NEGATIVE (NEGATIVE); URINE KETONES (Dip) 3+ (NEGATIVE); URINE LEUKOCYTE ESTERASE (Dip) TRACE (NEGATIVE); URINE NITRITE (Dip) NEGATIVE (NEGATIVE); URINE TOTAL PROTEIN (Dip) TRACE (NEGATIVE); URINE UROBILINOGEN (Dip) 0.2 E.U./dL (0.1-1.0)
[2016-06-06 07:24] LABS: MUCUS,URINE MANY
[2016-06-06] MEDS ORDERED: CEFTRIAXONE 1 GM/50 ML (PMX) 50 ML IVPB ONE (07:30)
[2016-06-06] MEDS ORDERED: DEXTROSE 5%-0.45% NACL 1,000 ML IV SCH (08:28)
[2016-06-06] MEDS ORDERED: ONDANSETRON 4 MG INJ IV PRN ×2 (08:30→09:30)
[2016-06-06] MEDS ORDERED: ACETAMINOPHEN 325 MG TAB PO PRN (08:30)
[2016-06-06 08:35] LABS: ADD SCAN DIFF NO
[2016-06-06 08:45] LABS: BASOPHIL # 0.1 10^3/ul (0.0-0.1); BASOPHILS % 1.3 % (0.0-2.0); EOSINOPHILS % 0.6 % (0.0-7.0); HEMATOCRIT 36.2 % (37.0-47.0); HEMOGLOBIN 11.4 g/dl (12.0-16.0); LYMPHOCYTES # 0.9 10^3/ul (0.8-2.9); LYMPHOCYTES % 12.7 % (15.0-51.0); MEAN CORPUSCULAR HEMOGLOBIN 28.7 pg (29.0-33.0); MEAN CORPUSCULAR HGB CONC 31.5 g/dl (32.0-37.0); MEAN CORPUSCULAR VOLUME 91.2 fl (82.0-101.0); MEAN PLATELET VOLUME 8.4 fl (7.4-10.4); MONOCYTE # 0.4 10^3/ul (0.3-0.9); MONOCYTES % 5.2 % (0.0-11.0); NEUTROPHIL # 5.4 10^3/ul (1.6-7.5); NEUTROPHILS % 79.8 % (39.0-77.0); PLATELET COUNT 562 10^3/UL (140-415); RED BLOOD COUNT 3.97 10^6/ul (4.20-5.40); WHITE BLOOD COUNT 6.8 10^3/ul (4.8-10.8)
[2016-06-06 09:14] LABS: ALBUMIN 4.2 g/dl (3.3-4.9); ALBUMIN/GLOBULIN RATIO 1.1; BILIRUBIN,INDIRECT 0.3 mg/dl (0-1.1); BILIRUBIN,TOTAL 0.3 mg/dl (0.2-1.3); CALCIUM 8.7 mg/dl (8.4-10.2); CREATININE 0.66 mg/dl (0.44-1.00); POTASSIUM 3.5 mmol/L (3.5-5.1)
--- NOTE | 2016-06-06 09:20 | ERA ---
ER Documentation Chief Complaint Date/Time DATE: 06/06/16 TIME: 09:17 Chief Complaint epigastric pain w/ N/V x 2 days HPI This is a 31-year-old female who presents to the emergency room for evaluation of abdominal cramping, nausea and vomiting for the past 2 days. This patient was seen in the emergency room last night, on June 05, 2016. She does have a history of intractable vomiting which is controlled with Ativan. She was seen and evaluated last night and was admitted to the hospital. This patient stated she was feeling better and she left prior to being assigned a room. This patient returns for worsening symptoms and vomiting which is nonstop for the past 2 hours. The patient stated she felt better when she received Ativan in the emergency room last night. ROS All systems reviewed and are negative except as per history of present illness. Medications Home Meds Active Scripts Ondansetron (Ondansetron Odt) 4 Mg Tab.rapdis, 4 MG PO Q6H Y for NAUSEA AND/OR VOMITING, #30 TAB Prov:RAYMOND MORLEY MD 06/05/16 Reported Medications Labetalol Hcl* (Labetalol Hcl*) 200 Mg Tablet, 200 MG PO TID, TAB 06/05/16 Ranitidine Hcl* (Ranitidine Hcl*) 300 Mg Tablet, 300 MG PO DAILY, #30 TAB 05/15/16 Lorazepam* (Lorazepam*) 1 Mg Tablet, 1 MG PO BID Y for VOMITTING, #30 TAB 03/25/16 Discontinued Reported Medications Doxylamine/Pyridoxine Hcl (DICLEGIS DR 10-10 MG TABLET) 1 Each Tablet.dr, 4 TAB PO DAILY, TAB TAKE 2-4 TAB DAILY,2TAB QHS ,IF NEEDED CAN GO TO 1TAB AM 1TAB AFTERNOON AND 2TAB QHS 12/19/15 Ondansetron Hcl* (Zofran*) 4 Mg Tab, 4 MG PO Q4H Y for NAUSEA AND OR VOMITING, TAB 11/13/15 Discontinued Scripts Labetalol Hcl* (Labetalol Hcl*) 100 Mg Tablet, 200 MG PO Q6 for 2 Days, #8 TAB Prov:ANIRUDH COOPER MD 05/17/16 Allergies Allergies: Coded Allergies: metoclopramide (Verified Allergy, Mild, 06/05/16) Penicillins (Verified Allergy, Unknown, 06/05/16) PMhx/Soc History of Surgery: Yes (c/section) Anesthesia Reaction: No Hx Neurological Disorder: No Hx Respiratory Disorders: No Hx Cardiac Disorders: No Hx Psychiatric Problems: No Hx Miscellaneous Medical Probl: Yes (cyclic vomiting syndrome) Hx Alcohol Use: No Hx Substance Use: No Hx Tobacco Use: No Smoking Status: Never smoker Physical Exam Vitals Vital Signs Date Time Temp Pulse Resp B/P Pulse Ox O2 Delivery O2 Flow Rate FiO2 06/06/16 07:13 84 20 182/113 97 06/06/16 05:43 98.5 96 20 156/90 97 Physical Exam INITIAL VITAL SIGNS: Reviewed by me GENERAL: The patient is well developed, actively vomiting HEENT: Dry mucous membranes, pupils equal, round, and reactive to light. EOMI. There is no scleral icterus. NECK: C-spine is soft and supple, there is no meningismus. There is no cervical lymphadenopathy. LUNGS: Clear to auscultation bilaterally. There are no rales, wheezes or rhonchi. HEART: Regular rate and rhythm, no murmurs, clicks, rubs or gallops. ABDOMEN: Soft, non-tender, non-distended. There are bowel sounds in all four quadrants. No rebound or guarding. EXTREMITIES: There is no peripheral cyanosis or edema. No focal swelling or erythema. NEUROLOGICAL: The patient moves all four extremities with 5/5 strength. Cranial nerves II - XII are intact. Normal gait. Alert and oriented SKIN: There is no apparent rash or petechiae. HEME/LYMPHATIC: There is no evidence of excessive bruising or lymphedema. PSYCHIATRIC: The patient does not appear anxious or depressed. Result Diagram: 06/06/16 0800 06/06/16 0800 Results 24 hrs Laboratory Tests Test 06/06/16 06:43 06/06/16 06:44 06/06/16 08:00 Bedside Urine pH (LAB) 6.0 Bedside Urine Protein (LAB) 1+ Bedside Urine Glucose (UA) Negative Bedside Urine Ketones (LAB) 4+ Bedside Urine Blood 2+ Bedside Urine Nitrite (LAB) Negative Bedside Urine Leukocyte Esterase (L Trace Urine Color LT. YELLOW Urine Clarity CLEAR Urine pH 6.0 Urine Specific [place] >=1.030 Urine Ketones 3+ Urine Nitrite NEGATIVE Urine Bilirubin NEGATIVE Urine Urobilinogen 0.2 E.U./dL Urine Leukocyte Esterase TRACE Urine Microscopic RBC 10-25/HPF Urine Microscopic WBC 10-25/HPF Urine Mucus MANY Urine Hemoglobin 3+ Urine Glucose NEGATIVE% Urine Total Protein TRACE White Blood Count 6.810^3/ul Red Blood Count 3.9710^6/ul Hemoglobin 11.4g/dl Hematocrit 36.2% Mean Corpuscular Volume 91.2fl Mean Corpuscular Hemoglobin 28.7pg Mean Corpuscular Hemoglobin Concent 31.5g/dl Red Cell Distribution Width 14.0% Platelet Count 05049^3/UL Mean Platelet Volume 8.4fl Neutrophils % 79.8% Lymphocytes % 12.7% Monocytes % 5.2% Eosinophils % 0.6% Basophils % 1.3% Nucleated Red Blood Cells % 0.0/100WBC Neutrophils # 5.410^3/ul Lymphocytes # 0.910^3/ul Monocytes # 0.410^3/ul Eosinophils # 0.010^3/ul Basophils # 0.110^3/ul Nucleated Red Blood Cells # 0.010^3/ul Sodium Level 136mmol/L Potassium Level 3.5mmol/L Chloride Level 105mmol/L Carbon Dioxide Level 20mmol/L Anion Gap 15 Blood Urea Nitrogen 8mg/dl Creatinine 0.66mg/dl Glucose Level 67mg/dl Calcium Level 8.7mg/dl Total Bilirubin 0.3mg/dl Direct Bilirubin 0.00mg/dl Indirect Bilirubin 0.3mg/dl Aspartate Amino Transf (AST/SGOT) 48IU/L Alanine Aminotransferase (ALT/SGPT) 28IU/L Alkaline Phosphatase 133IU/L Total Protein 8.0g/dl Albumin 4.2g/dl Globulin 3.80g/dl Albumin/Globulin Ratio 1.10 Lipase 103U/L Current Medications Medications (Trade) Dose Ordered Sig/Laith Route PRN Reason Start Time Stop Time Status Last Admin Dose Admin Sodium Chloride (NS) 1,000 ml @ 1,000 mls/hr Q1H STAT IV 06/06/16 06:30 06/06/16 07:29 DC 06/06/16 07:02 Lorazepam 1 mg 1 mg ONCE ONCE IV 06/06/16 06:30 06/06/16 06:31 DC 06/06/16 07:02 Dextrose/Sodium Chloride (D5-1/2ns) 1,000 ml @ 250 mls/hr Q4H ONCE IV 06/06/16 07:00 06/06/16 10:59 06/06/16 08:35 Lorazepam 1 mg 1 mg ONCE ONCE IV 06/06/16 07:30 06/06/16 07:31 DC 06/06/16 07:09 Ceftriaxone Sodium (Rocephin) 50 ml @ 100 mls/hr ONCE ONCE IVPB 06/06/16 07:30 06/06/16 07:59 DC 06/06/16 07:36 Lorazepam 2 mg 2 mg ONCE ONCE IV 06/06/16 08:30 06/06/16 08:37 DC 06/06/16 08:35 Dextrose/Sodium Chloride (D5-1/2ns) 1,000 ml @ 80 mls/hr [id number] IV 06/06/16 08:28 06/06/16 20:57 Ondansetron HCl (Zofran Inj) 4 mg BRIDGE ORDER PRN IV NAUSEA AND/OR VOMITING 06/06/16 08:30 06/07/16 08:29 Acetaminophen (Tylenol Tab) 650 mg ER BRIDGE PRN PO MILD PAIN/FEVER 06/06/16 08:30 06/07/16 08:29 Procedures/MDM This 31-year-old female presents to the emergency room for evaluation of intractable vomiting. She was seen in the emergency room last night and did feel better and went home. She presents today again for similar complaints. This patient was actively vomiting when I evaluated her. I did give this patient total of 4 mg of Ativan with moderate relief of her symptoms. She did have dry mucous membranes, I did give this patient 1 L of IV normal saline, and 1 L of D5 half-normal saline she does have ketones in her urine. This patient is feeling better at this time however given her symptoms and recurrent visit to the emergency room for the same problems she will be admitted at this time under the care of her physician, Dr. Solis Departure Diagnosis: Primary Impression: Intractable vomiting with nausea Additional Impressions: Mild dehydration Normocytic anemia Condition: Stable ZACKERYSHANA ESTRADA Jun 06, 2016 09:20
[2016-06-06] MEDS: D5-NS + KCL 20 MEQ 1,000 ML IV SCH ×3 (09:30→22:00)
[2016-06-06] MEDS ORDERED: LORAZEPAM 2 MG INJ IV PRN (09:30)
[2016-06-06] MEDS ORDERED: morphine 4 MG/ML VIAL IV STA (11:41)
[2016-06-06] MEDS ORDERED: TRIMETHOBENZAMIDE 100 MG/ML VIAL IM PRN (12:00)
[2016-06-06 15:34] VITALS: PULSE 71; TEMP 98.5
[2016-06-06 16:33] VITALS: BP 133/80; RESP 18
[2016-06-06] MEDS ORDERED: morphine 4 MG/ML VIAL IV PRN (19:00)
[2016-06-06 19:25] VITALS: BP 136/94; RESP 20
[2016-06-06 20:00] VITALS: Ht 160 cm; Wt 49.1 kg
--- NOTE | 2016-06-06 20:47 | HP ---
DATE OF ADMISSION: 06/06/2016 CHIEF COMPLAINT: Intractable nausea, vomiting, and abdominal pain. HISTORY OF PRESENT ILLNESS: This is a 31-year-old female with a history of cyclical vomiti ng syndrome and had recently delivered a healthy baby boy via , still continued to have per sistent nausea and vomiting when she went home. The nausea, vomiting, and abdominal cramps have bee n severe the past 2 days prior to admission. The patient was actually seen in the emergency room ye sterday, and her symptoms improved with IV Morphine, Ativan and Zofran, so she went home, but the sy mptoms came back early this morning, and her family had to bring her back into the ER. PAST MEDICAL HISTORY: 1. Hypertension. 2. Cyclical vomiting syndrome. 3. status post 2 weeks ago. ALLERGIES: 1. PENICILLIN. 2. METOCLOPRAMIDE. MEDICATIONS ON ADMISSION: 1. Labetalol 200 mg p.o. t.i.d. 2. Lorazepam 1 mg p.o. b.i.d. 3. Zofran 4 mg tablets ODP q.6 hours p.r.n. 4. Ranitidine 300 mg p.o. every day. SOCIAL HISTORY: The patient does not smoke, does not drink alcohol. She is and lives with her and her parents. She works as a nurse. FAMILY HISTORY: Noncontributory. PHYSICAL EXAMINATION: GENERAL: Thin, well-developed female, lying in bed, appearing to be in no acute distress at this ti hi. VITAL SIGNS: Temperature 98.4, blood pressure 133/80, pulse of 83, respiration rate 18, O2 saturati on 98% on room air. HEENT: Pupils equally round, reactive to light. Oropharynx clear. CHEST: Lungs are clear to auscultation. CARDIAC: Regular rate and rhythm, normal S1, S2. ABDOMEN: Active bowel sounds, soft. No epigastric tenderness. Mild tenderness surrounding the inc ision suprapubic area. EXTREMITIES: No clubbing, cyanosis, or edema. LABORATORY DATA: WBC 6.8, hemoglobin 11.4, hematocrit 36.2, platelet count 562,000. Neutrophil cou nt 78.9, lymphocyte count of 12.7%. Sodium 136, potassium 3.5, chloride 105, carbon dioxide 20, BUN 8, creatinine 0.66, glucose 67. Liver enzymes are notable for mildly elevated AST of 48 and alkali ne phosphatase of 133 as well as globulin elevation of 3.8. Lipase is normal at 103. Her urine cornelius ws specific gravity of greater than 1.030, pH of 6.0. There are 3+ ketones, 2+ blood. There is tra ce leukocyte esterase, 10 to 25 RBC, 10 to 25 WBC, 3+ hemoglobin and many mucus. ASSESSMENT AND PLAN: 1. Intractable nausea and vomiting may be due to patient's underlying cyclic vomiting syndrome, but since she is here in the hospital, I will order an MRA to rule out superior mesenteric artery syndr ome. We will continue Zofran, morphine and Ativan IV and n.p.o. status until symptoms are improved. Will start patient on IV fluid hydration for now. 2. Hypertension. The patient seems to be doing well without medications, but may have to restart o ral labetalol if her blood pressure starts climbing. 3. status. The patient is breast feeding and is planning to pump her milk while she is in the hospital. I will recommend that she discard the milk that she pumps while she is in the hosp ital receiving multiple IV medications. Dictated By: DOUG HAMMONDS MD DP/HENNY Conf#: [id number] DID#: [id number]
[2016-06-07] MEDS ORDERED: METOCLOPRAMIDE 10 MG INJ IV SCH
[2016-06-07 05:55] LABS: ADD SCAN DIFF NO
[2016-06-07] MEDS ORDERED: PANTOPRAZOLE 40 MG INJ IV SCH (06:00)
[2016-06-07 06:04] LABS: BASOPHIL # 0.1 10^3/ul (0.0-0.1); BASOPHILS % 1.1 % (0.0-2.0); EOSINOPHILS # 0.1 10^3/ul (0.0-0.5); EOSINOPHILS % 2.3 % (0.0-7.0); HEMATOCRIT 35.6 % (37.0-47.0); HEMOGLOBIN 11.5 g/dl (12.0-16.0); LYMPHOCYTES # 1.3 10^3/ul (0.8-2.9); MEAN CORPUSCULAR HEMOGLOBIN 28.8 pg (29.0-33.0); MEAN CORPUSCULAR HGB CONC 32.3 g/dl (32.0-37.0); MEAN CORPUSCULAR VOLUME 89.2 fl (82.0-101.0); MEAN PLATELET VOLUME 8.5 fl (7.4-10.4); MONOCYTE # 0.5 10^3/ul (0.3-0.9); MONOCYTES % 10.1 % (0.0-11.0); NEUTROPHIL # 3.3 10^3/ul (1.6-7.5); NEUTROPHILS % 60.9 % (39.0-77.0); PLATELET COUNT 535 10^3/UL (140-415); RED BLOOD COUNT 3.99 10^6/ul (4.20-5.40); RED CELL DISTRIBUTION WIDTH 14.1 % (11.5-14.5); WHITE BLOOD COUNT 5.3 10^3/ul (4.8-10.8)
[2016-06-07 06:35] LABS: POTASSIUM 3.2 mmol/L (3.5-5.1)
[2016-06-07 06:37] LABS: CREATININE 0.61 mg/dl (0.44-1.00)
[2016-06-07 06:38] LABS: CALCIUM 8.7 mg/dl (8.4-10.2)
[2016-06-07 07:32] VITALS: BP 126/59; RESP 18
[2016-06-07 07:37] VITALS: BP 128/79; RESP 18
[2016-06-07] MEDS: D5-NS + KCL 20 MEQ 1,000 ML IV SCH (08:17)
[2016-06-07] MEDS ORDERED: POTASSIUM CHLORIDE 20 MEQ in SOD CHLORIDE 0.9% 100 ML IVPB ONE (11:00)
--- NOTE | 2016-06-07 11:28 | RADRPT ---
PROCEDURE: MR abdominal Angiography. CLINICAL INDICATION: Abdominal pain TECHNIQUE: An MRA of the aorta and renal arteries was performed on the 1.5 kandi scanner utilizing axial 2D time of flight. Postcontrast images were obtained for administration of 20 cc of Magnevist contrast. Source and MIPPED images were reviewed. COMPARISON: No prior studies are available for comparison. FINDINGS: The aorta is normal in caliber with no significant atherosclerotic disease. The proximal celiac artery and SMA are widely patent. Bilateral single renal arteries are seen with no focal stenosis. There is no evidence of a beaded a ppearance to suggest fibromuscular dysplasia. There is no evidence of focal dissection. . The bilateral common iliac arteries are normal. IMPRESSION: Proximal celiac artery and SMA widely patent. Normal bilateral renal arteries. If symptoms persist, further evaluation with a CT mesenteric angiogram is recommended. RPTAT: KK .Aleksandar Menendez MD, Date Time Electronically viewed and signed by .Aleksandar Menendez MD, MD on 06/07/2016 11:28 .S/
[2016-06-07 16:24] LABS: MAGNESIUM 1.7 mg/dl (1.7-2.5); POTASSIUM 3.4 mmol/L (3.5-5.1)
[2016-06-07] MEDS ORDERED: POTASSIUM CHLORIDE (SR) 20 MEQ TAB PO ONE (17:00)
[2016-06-07] MEDS ORDERED: ONDANSETRON (ODT) 4 MG TAB ODT PRN (17:00)
--- NOTE | 2016-06-07 17:26 | PN ---
DATE: 06/07/2016 SUBJECTIVE: The patient feeling better today. No nausea, vomiting this morning. Requests some iliana d and has been able to tolerate clear liquids for lunch. OBJECTIVE: VITAL SIGNS: Temperature 98.4, blood pressure 128/79, pulse of 97, respiration rate 18, O2 saturati on 97% on room air. HEENT: Pupils equally round, reactive to light. Oropharynx clear. CHEST: Lungs are clear to auscultation. CARDIAC: Regular rate and rhythm. Normal S1, S2. ABDOMEN: Active bowel sounds. Soft, nondistended, nontender. EXTREMITIES: No clubbing, cyanosis or edema. LABORATORY DATA: WBC 5.3, hemoglobin 11.5, hematocrit 35.6, platelet count 535,000. ESR is 14. He r sodium was 139. Potassium was 3.2 earlier this morning and after IV replacement came up to 3.4. Chloride was 106, carbon dioxide 22, BUN 3, creatinine 0.61, glucose 103, calcium of 8.7 and magnesi um was 1.7. IMAGING: The abdominal MRA shows proximal celiac artery and SMA widely patent. Bilateral single re nal arteries are seen with no focal stenosis. No evidence of a beaded appearance to suggest fibromu scular dysplasia. ASSESSMENT AND PLAN: Nausea, vomiting, most likely due to cyclic vomiting syndrome. The patient st abilizing on morphine, pantoprazole and Ativan IV. Will switch to oral pills and advance diet as to lerated. If patient does well, may consider discharge to home as early as tomorrow. In anticipatio n of patient being discharged this weekend, I will send prescriptions for morphine, Ativan and omepr azole to her pharmacy, [facility] at the corner of [facility]. Dictated By: DOUG HAMMONDS MD DP/NTS Conf#: [id number] DID#: [id number]
[2016-06-07 19:51] VITALS: BP 143/93; RESP 18
[2016-06-07] MEDS: LORAZEPAM 1 MG TAB PO SCH (22:40)
[2016-06-07] MEDS: morphine (ER) 15 MG TAB PO SCH (22:40)
[2016-06-07] MEDS ORDERED: PANT40TA4 PO (23:13)
[2016-06-08] MEDS ORDERED: PANTOPRAZOLE (EC) 40 MG TAB PO SCH (06:00)
[2016-06-08 07:23] VITALS: BP 142/91; RESP 16
[2016-06-08] MEDS: LORAZEPAM 1 MG TAB PO SCH (08:51)
[2016-06-08] MEDS: morphine (ER) 15 MG TAB PO SCH (09:00)
--- NOTE | 2016-06-08 10:53 | PN ---
DATE: 06/07/2016 SUBJECTIVE: This is a patient who is coming in with intractable nausea and vomiting, status post C- section 2 weeks ago. Currently has been given morphine, but she does say that this has helped, alth ough she reports that it is apparently too strong. The patient does not like the sensation and it i s hard to move around and get out of bed. The patient was to go home today. We will put in orders for discharge today. If the patient is unable to ambulate or unable to wake up, we will hold off on discharge for today. Medications have already been sent over via her primary physician to [facility] includes the morphine, which the patient is having a hard time tolerating. She does like her Ati van and her omeprazole, which was reported to have been sent. PLAN: For today, plan on discharge home. Medications have been sent. Will proceed at 6 p.m. today . If the patient is unable to leave, we will hold on transfer. Dictated By: MELISSA ZAPATA/HENNY Conf#: [id number] DID#: [id number]
== END 2016-06-08 18:30 | disposition home or self-care (01) | DRG 103 ==
LOC: FTE 05:39 → MS2 08:29
PROVIDERS: ADMIT Internal Medicine; ATTEND Internal Medicine
DX: G43.A0 Cyclical vomiting, in migraine, not intractable (principal); I10 Essential (primary) hypertension; E86.0 Dehydration; D64.9 Anemia, unspecified
CPT/HCPCS: 74185; 80048; 80053; 81001; 81003; 83690; 83735; 84132; 85025; 85651; 87040; 87081; 87086; 96374; 96375; 96376; C9113; J0696; J2060; J2270; J2405; J3480; J7030; J7042

== ENCOUNTER 2016-06-11 09:01 | Inpatient (IN) | payer BC ==
[~2016-06-11] VITALS: Ht 160 cm; Wt 47.9 kg
[~2016-06-11 09:01] MED LIST changes: -ONDA4TAB14 PO; +PANT40TA4 PO; -RANI300T PO
[2016-06-11] MEDS ORDERED: SOD CHLORIDE 0.9% 1,000 ML IV STA (09:19)
[2016-06-11] MEDS ORDERED: HYDROmorphONE 1 MG/ML SYG IV STA (09:19)
[2016-06-11] MEDS ORDERED: ONDANSETRON 4 MG INJ IV STA (09:19)
[2016-06-11] MEDS ORDERED: LORAZEPAM 2 MG INJ IV ONE (09:30)
[2016-06-11] MEDS ORDERED: ONDANSETRON 4 MG INJ IV PRN (10:00)
[2016-06-11] MEDS ORDERED: ACETAMINOPHEN 325 MG TAB PO PRN (10:00)
[2016-06-11 10:51] LABS: ADD SCAN DIFF NO
[2016-06-11 10:58] LABS: BASOPHIL # 0.1 10^3/ul (0.0-0.1); BASOPHILS % 0.8 % (0.0-2.0); EOSINOPHILS # 0.1 10^3/ul (0.0-0.5); EOSINOPHILS % 0.8 % (0.0-7.0); HEMATOCRIT 35.9 % (37.0-47.0); HEMOGLOBIN 11.6 g/dl (12.0-16.0); LYMPHOCYTES # 1.2 10^3/ul (0.8-2.9); LYMPHOCYTES % 17.7 % (15.0-51.0); MEAN CORPUSCULAR HEMOGLOBIN 28.6 pg (29.0-33.0); MEAN CORPUSCULAR HGB CONC 32.3 g/dl (32.0-37.0); MEAN CORPUSCULAR VOLUME 88.6 fl (82.0-101.0); MEAN PLATELET VOLUME 9.1 fl (7.4-10.4); MONOCYTE # 0.5 10^3/ul (0.3-0.9); MONOCYTES % 7.4 % (0.0-11.0); NEUTROPHIL # 4.8 10^3/ul (1.6-7.5); PLATELET COUNT 459 10^3/UL (140-415); RED BLOOD COUNT 4.05 10^6/ul (4.20-5.40); RED CELL DISTRIBUTION WIDTH 13.9 % (11.5-14.5); WHITE BLOOD COUNT 6.5 10^3/ul (4.8-10.8)
[2016-06-11 11:20] LABS: ALBUMIN/GLOBULIN RATIO 1.21; BILIRUBIN,INDIRECT 0.2 mg/dl (0-1.1); BILIRUBIN,TOTAL 0.2 mg/dl (0.2-1.3); CALCIUM 9.6 mg/dl (8.4-10.2); CREATININE 0.69 mg/dl (0.44-1.00); POTASSIUM 3.4 mmol/L (3.5-5.1); TOTAL PROTEIN 7.3 g/dl (6.1-8.1)
--- NOTE | 2016-06-11 13:05 | ERA ---
ER Documentation Chief Complaint Date/Time DATE: 06/11/16 TIME: 13:02 Chief Complaint EPIGASTRIC PAIN, NAUSEA, VOMITTING X 1 WEEK HPI Patient is a 31-year-old female with cyclical vomiting syndrome who presents with abdominal pain and vomiting. She was recently discharged for the same. She says that when she went home a few hours later she started with the same symptoms. Anything she tries to eat or drink she vomits back up. The pain is diffuse and comes and goes. It is sharp in nature. Her primary doctor is Dr. Sheryl Hammonds. ROS All systems reviewed and are negative except as per history of present illness. Medications Home Meds Active Scripts Pantoprazole* (Pantoprazole*) 40 Mg Tablet.dr, 40 MG PO DAILY@06 for 30 Days, # 30 Prov:SHERYL HAMMONDS MD 06/07/16 Reported Medications Labetalol Hcl* (Labetalol Hcl*) 200 Mg Tablet, 200 MG PO TID, TAB 06/05/16 Lorazepam* (Lorazepam*) 1 Mg Tablet, 1 MG PO BID Y for VOMITTING, #30 TAB 03/25/16 Discontinued Reported Medications Ranitidine Hcl* (Ranitidine Hcl*) 300 Mg Tablet, 300 MG PO DAILY, #30 TAB 05/15/16 Doxylamine/Pyridoxine Hcl (DICLEGIS DR 10-10 MG TABLET) 1 Each Tablet.dr, 4 TAB PO DAILY, TAB TAKE 2-4 TAB DAILY,2TAB QHS ,IF NEEDED CAN GO TO 1TAB AM 1TAB AFTERNOON AND 2TAB QHS 12/19/15 Ondansetron Hcl* (Zofran*) 4 Mg Tab, 4 MG PO Q4H Y for NAUSEA AND OR VOMITING, TAB 11/13/15 Discontinued Scripts Ondansetron (Ondansetron Odt) 4 Mg Tab.rapdis, 4 MG PO Q6H Y for NAUSEA AND/OR VOMITING, #30 TAB Prov:RAYMOND MORLEY MD 06/05/16 Labetalol Hcl* (Labetalol Hcl*) 100 Mg Tablet, 200 MG PO Q6 for 2 Days, #8 TAB Prov:ANIRUDH COOPER MD 05/17/16 Allergies Allergies: Coded Allergies: metoclopramide (Verified Allergy, Mild, 06/06/16) Penicillins (Verified Allergy, Unknown, 06/06/16) PMhx/Soc History of Surgery: Yes ( ) Anesthesia Reaction: No Hx Neurological Disorder: No Hx Respiratory Disorders: No Hx Cardiac Disorders: Yes (gastational high blood pressure ) Hx Psychiatric Problems: Yes (mild post depression) Hx Miscellaneous Medical Probl: No Hx Alcohol Use: Yes (occaisonal/ once a month beer or wine ) Hx Substance Use: No Hx Tobacco Use: No Smoking Status: Former smoker FmHx Family History: No diabetes Physical Exam Vitals Vital Signs Date Time Temp Pulse Resp B/P Pulse Ox O2 Delivery O2 Flow Rate FiO2 06/11/16 09:04 98.4 115 32 175/99 97 Physical Exam Const: Moderate distress secondary to pain Head: Atraumatic Eyes: Normal Conjunctiva ENT: Normal External Ears, Nose and Mouth. Neck: Full range of motion..~ No meningismus. Resp: Clear to auscultation bilaterally Cardio: Regular rate and rhythm, no murmurs Abd: Soft, diffuse tenderness to palpation without rebound or guarding Skin: No petechiae or rashes Back: No midline or flank tenderness Ext: No cyanosis, or edema Neur: Awake and alert Psych: Normal Mood and Affect Result Diagram: 06/11/16 1029 06/11/16 1029 Results 24 hrs Laboratory Tests Test 06/11/16 10:29 White Blood Count 6.510^3/ul Red Blood Count 4.0510^6/ul Hemoglobin 11.6g/dl Hematocrit 35.9% Mean Corpuscular Volume 88.6fl Mean Corpuscular Hemoglobin 28.6pg Mean Corpuscular Hemoglobin Concent 32.3g/dl Red Cell Distribution Width 13.9% Platelet Count 81787^3/UL Mean Platelet Volume 9.1fl Neutrophils % 73.0% Lymphocytes % 17.7% Monocytes % 7.4% Eosinophils % 0.8% Basophils % 0.8% Nucleated Red Blood Cells % 0.0/100WBC Neutrophils # 4.810^3/ul Lymphocytes # 1.210^3/ul Monocytes # 0.510^3/ul Eosinophils # 0.110^3/ul Basophils # 0.110^3/ul Nucleated Red Blood Cells # 0.010^3/ul Sodium Level 133mmol/L Potassium Level 3.4mmol/L Chloride Level 99mmol/L Carbon Dioxide Level 26mmol/L Anion Gap 11 Blood Urea Nitrogen 12mg/dl Creatinine 0.69mg/dl Glucose Level 93mg/dl Calcium Level 9.6mg/dl Total Bilirubin 0.2mg/dl Direct Bilirubin 0.00mg/dl Indirect Bilirubin 0.2mg/dl Aspartate Amino Transf (AST/SGOT) 23IU/L Alanine Aminotransferase (ALT/SGPT) 24IU/L Alkaline Phosphatase 91IU/L Total Protein 7.3g/dl Albumin 4.0g/dl Globulin 3.30g/dl Albumin/Globulin Ratio 1.21 Lipase 288U/L Current Medications Medications (Trade) Dose Ordered Sig/Laith Route PRN Reason Start Time Stop Time Status Last Admin Dose Admin Sodium Chloride (NS) 1,000 ml @ 1,000 mls/hr Q1H STAT IV 06/11/16 09:19 06/11/16 10:18 DC 06/11/16 09:57 Hydromorphone HCl (Dilaudid) 1 mg ONCE STAT IV 06/11/16 09:19 06/11/16 09:21 DC 06/11/16 09:52 Ondansetron HCl (Zofran Inj) 4 mg ONCE STAT IV 06/11/16 09:19 06/11/16 09:21 DC 06/11/16 09:52 Lorazepam (Ativan) 1 mg ONCE ONCE IV 06/11/16 09:30 06/11/16 09:31 DC 06/11/16 09:52 Ondansetron HCl (Zofran Inj) 4 mg BRIDGE ORDER PRN IV NAUSEA AND/OR VOMITING 06/11/16 10:00 06/12/16 09:59 Acetaminophen (Tylenol Tab) 650 mg ER BRIDGE PRN PO MILD PAIN/FEVER 06/11/16 10:00 06/12/16 09:59 Procedures/MDM Patient is a 31-year-old female presents with abdominal pain and vomiting. I believe she has acute cyclical vomiting syndrome. The patient will be readmitted to Dr. Hammonds. She may require endoscopy or further workup but I will leave this up to the inpatient team. The patient was given Ativan and Dilaudid for symptoms. I would not do a CT scan at this time as I feel the risks of radiation may outweigh the benefits. I doubt appendicitis, cholecystitis, pancreatitis, or bowel obstruction. Departure Diagnosis: Primary Impression: Abdominal pain Qualified Code: R10.84 - Generalized abdominal pain Additional Impressions: Vomiting Qualified Code: R11.2 - Intractable vomiting with nausea, unspecified vomiting type Anemia Qualified Code: D64.9 - Anemia, unspecified type Condition: RAYMOND Campbell MD June 11, 2016 13:04
[2016-06-11 14:11] VITALS: TEMP 98.4
[2016-06-11 14:17] LABS: ADD UMIC NO; URINE BILIRUBIN (Dip) NEGATIVE (NEGATIVE); URINE BLOOD (Dip) NEGATIVE (NEGATIVE); URINE COLOR LT. YELLOW (YELLOW); URINE GLUCOSE (Dip) NEGATIVE (NEGATIVE); URINE KETONES (Dip) 15 (NEGATIVE); URINE LEUKOCYTE ESTERASE (Dip) NEGATIVE (NEGATIVE); URINE NITRITE (Dip) NEGATIVE (NEGATIVE); URINE TOTAL PROTEIN (Dip) NEGATIVE (NEGATIVE); URINE UROBILINOGEN (Dip) 0.2 E.U./dL (0.1-1.0)
[2016-06-11] MEDS ORDERED: morphine 2 MG INJ IV PRN (19:30)
[2016-06-11] MEDS ORDERED: LORAZEPAM 2 MG INJ IV PRN (19:30)
--- NOTE | 2016-06-11 20:23 | HP ---
DATE OF ADMISSION: 06/11/2016 CHIEF COMPLAINT: Recurrent abdominal pain, nausea and vomiting. HISTORY OF PRESENT ILLNESS: This 31-year-old female with history of cyclic vomiting syndrome and who just had a baby by a few weeks ago came in with recurrence of her nausea, vomiting and abdominal pain. The patient was just discharged to home following hospitalization for similar symptoms 3 days prior to admission. The patient apparently was doing well on IV morphine and Ativan while she was in the hospital. We switched her to oral morphine and Ativan, but she was a little worried that the morphine was strong at 15 mg ER. The patient began having abdominal pain, nausea, vomiting again on the day of admission. She also notes new-onset sharp epigastric pain anytime she eats anything this time around. PAST MEDICAL HISTORY: 1. Cyclic vomiting syndrome. 2. Hypertension. 3. status. 4. Breast feeding status. 5. Status post 3 weeks ago. ALLERGIES: 1. PENICILLIN. 2. METOCLOPRAMIDE. CURRENT MEDICATIONS: Include: 1. Labetalol 200 mg p.o. t.i.d. 2. Lorazepam 1 mg p.o. b.i.d. 3. Pantoprazole 40 mg p.o. daily. 4. Morphine ER 15 mg p.o. b.i.d. p.r.n. abdominal pain. PHYSICAL EXAMINATION: HEENT: Pupils equally round, reactive to light. Oropharynx clear. CHEST: Lungs are clear to auscultation. CARDIAC: Regular rate and rhythm. Normal S1, S2. ABDOMEN: Active bowel sounds. Soft, nondistended. Mild epigastric tenderness. EXTREMITIES: No clubbing, cyanosis or edema. LABORATORY DATA: WBC 6.5, hemoglobin 11.6, hematocrit 35.9, platelet count 459, 000. Sodium 133, potassium 3.4, chloride 99, carbon dioxide 26, BUN 12, creatinine 0.69. Liver enzymes are within normal limits except for elevated globulin of 3.3. IMPRESSION: Abdominal pain with nausea and vomiting. Most likely due to cyclic vomiting syndrome, but since patient does have new-onset epigastric pain , will consult fast food crew lead, Dr. Chavez, to see if it's worth doing another EGD on her. I would have liked to start the patient on trial of or Librax, but she is breast feeding and will have to run this by pharmacy at this time. In the meantime will resume the IV morphine, Ativan and IV pantoprazole and keep patient n.p.o. except ice chips for now. Dictated By: DOUG HAMMONDS MD DP/NTS Conf#: [id number] DID#: [id number] MTDD
[2016-06-11] MEDS ORDERED: POTASSIUM CHLORIDE 30 MEQ in DEXTROSE 5%-0.9% NACL 1,000 ML IV SCH (20:45)
[2016-06-11] MEDS: LABETALOL 200 MG TAB PO SCH (21:13)
[2016-06-11 22:54] VITALS: BP 131/77; RESP 16
[2016-06-11 23:05] VITALS: Ht 160 cm; Wt 47.9 kg
[2016-06-11] MEDS: SOD CHLORIDE 0.45% 1,000 ML IV SCH (23:53)
[2016-06-12] MEDS ORDERED: ACETAMINOPHEN 325 MG TAB PO PRN
[2016-06-12] MEDS: PANTOPRAZOLE 40 MG INJ IV SCH (05:42)
[2016-06-12] MEDS: BELLADONNA/PHENOBARBITAL TAB PO SCH ×3 (08:00→17:20)
[2016-06-12 08:07] VITALS: BP 145/92; RESP 16
[2016-06-12] MEDS: LABETALOL 200 MG TAB PO SCH ×2 (09:09→12:41)
[2016-06-12] MEDS: POTASSIUM CHLORIDE (SR) 10 MEQ TAB PO SCH (09:09)
[2016-06-12] MEDS: SOD CHLORIDE 0.45% 1,000 ML IV SCH ×2 (12:30→14:51)
[2016-06-12] MEDS: ONDANSETRON 4 MG INJ IV PRN (14:18)
[2016-06-12] MEDS: HYDROmorphONE 1 MG/ML SYG IV PRN (14:50)
[2016-06-12] MEDS ORDERED: CLONIDINE 0.1 MG/24 HR PATCH TRANSDERM ONE (18:30)
[2016-06-12] MEDS ORDERED: TRIMETHOBENZAMIDE 100 MG/ML VIAL IM PRN (18:30)
[2016-06-12] MEDS ORDERED: oxyCODONE 5 MG TAB PO PRN (18:30)
--- NOTE | 2016-06-12 19:45 | PN ---
DATE: 06/12/2016 SUBJECTIVE: The patient complains of increased abdominal pain and nausea with photosensitivity toda y, especially after some clear liquids intake. She reports that the morphine causes alot of sedatio n and so does the Dilaudid when they are administered by themselves. When they are given with Zofra n and Ativan, she has less side effect, such as dizziness and wooziness. OBJECTIVE: VITAL SIGNS: Temperature 98.2, blood pressure 145/92, pulse of 70, respiration rate 16, O2 saturati on 97% on room air. HEENT: Pupils equally round, reactive to light. Oropharynx clear. CHEST: Lungs are clear to auscultation. CARDIAC: Regular rate and rhythm. ABDOMEN: Active bowel sounds. Mild epigastric tenderness. EXTREMITIES: No clubbing, cyanosis, or edema. ASSESSMENT AND PLAN: 1. Recurrent nausea and vomiting may be secondary to cyclic vomiting syndrome. Tanner did not se em to help yesterday. Will stop this and a trial of oral oxycodone to see if patient can tolerate t his better than Dilaudid and morphine. Will add Tigan for now, if patient continues to have nausea following Zofran. 2. Increased epigastric pain. Agree with EGD for evaluation, since patient with recurrent nausea a nd vomiting may have new onset ulcerations, gastritis, or Lesly-Talley tear. Dictated By: DOUG HAMMONDS MD DP/NTS Conf#: [id number] DID#: [id number]
[2016-06-12 19:57] VITALS: BP 139/84; RESP 16
--- NOTE | 2016-06-12 22:59 | CONS ---
DATE OF ADMISSION: 06/11/2016 DATE OF CONSULTATION: TYPE OF CONSULTATION: Gastroenterology. REFERRING PHYSICIAN: Sheryl Solis MD Dear Dr. Solis: Thank you for this kind referral. The patient is a pleasant 31-year-old female with a history of c yclic vomiting since the age of 17. She had a a few weeks ago. The patient's episode of cyclic vomiting continued almost throughout the , and after the delivery she recovered to s ome degree, but again, the symptoms came back. She was hospitalized a few days ago and this is the second admission. The patient complains of pain in the epigastric area for the last few days, but s he is unable to tolerate feeding. Food aggravates her condition. Also with this nausea, she has oc casional heartburn. No GI bleeding. She has not had a bowel movement; the last bowel movement was 2-3 days ago, but has not had a good meal, also. I reviewed her ultrasound report which was done 1 month ago when she was . There was no gallstone. PAST MEDICAL HISTORY: Cyclical vomiting, hypertension for which she is on labetalol, sta tus, , 3 weeks ago. ALLERGIES: PENICILLIN AND METOCLOPRAMIDE. MEDICATIONS: The patient is on: 1. Labetalol. 2. Lorazepam. 3. Pantoprazole. 4. Morphine. PHYSICAL EXAMINATION: GENERAL: Alert, awake, not in distress. VITAL SIGNS: Stable. HEENT: Unremarkable. NECK: Supple, no thyromegaly, no lymphadenopathy. CARDIOVASCULAR: No murmur, gallop, or click. LUNGS: Clear. ABDOMEN: Mild tenderness in the epigastric area. Bowel sounds good. EXTREMITIES: No edema. CENTRAL NERVOUS SYSTEM: Grossly within normal limits. LABORATORY DATA: Hematocrit was 35. CMP was grossly within normal limits. IMPRESSION: 1. Cyclical vomiting. 2. Epigastric pain. 3. Hypertension. 4. status. 5. Status post 3 weeks ago. PLAN: 1. At this point, the patient will continue PPI. We will do EGD in a.m. If non-conclusive, then p atient needs to be treated with Lexapro or Elavil. 2. Repeated exercise in the form of walking half an hour daily on a regular basis. 3. Yogurt daily. 4. CoQ10 100 mg b.i.d. 5. I will make sure that the pharmacy over the weekend can give either Elavil or Lexapro 10 mg to t he patient since she is breast feeding. Dictated By: RAYMUNDO DAILY/HENNY Conf#: [id number] DID#: [id number]
[2016-06-13] MEDS: SOD CHLORIDE 0.45% 1,000 ML IV SCH ×2 (02:17→13:09)
[2016-06-13] MEDS: PANTOPRAZOLE 40 MG INJ IV SCH (05:19)
[2016-06-13 05:41] LABS: ADD SCAN DIFF NO
[2016-06-13 05:52] LABS: BASOPHIL # 0.1 10^3/ul (0.0-0.1); BASOPHILS % 1.4 % (0.0-2.0); EOSINOPHILS # 0.1 10^3/ul (0.0-0.5); EOSINOPHILS % 3.2 % (0.0-7.0); HEMOGLOBIN 11.1 g/dl (12.0-16.0); LYMPHOCYTES # 1.1 10^3/ul (0.8-2.9); LYMPHOCYTES % 23.8 % (15.0-51.0); MEAN CORPUSCULAR HEMOGLOBIN 28.5 pg (29.0-33.0); MEAN CORPUSCULAR HGB CONC 32.6 g/dl (32.0-37.0); MEAN CORPUSCULAR VOLUME 87.4 fl (82.0-101.0); MEAN PLATELET VOLUME 9.1 fl (7.4-10.4); MONOCYTE # 0.5 10^3/ul (0.3-0.9); MONOCYTES % 11.1 % (0.0-11.0); NEUTROPHIL # 2.7 10^3/ul (1.6-7.5); NEUTROPHILS % 60.3 % (39.0-77.0); PLATELET COUNT 431 10^3/UL (140-415); RED BLOOD COUNT 3.89 10^6/ul (4.20-5.40); RED CELL DISTRIBUTION WIDTH 13.9 % (11.5-14.5); WHITE BLOOD COUNT 4.4 10^3/ul (4.8-10.8)
[2016-06-13 08:16] VITALS: BP 163/95; RESP 20
[2016-06-13] MEDS: POTASSIUM CHLORIDE (SR) 10 MEQ TAB PO SCH (08:27)
[2016-06-13] MEDS ORDERED: ENALAPRILAT 1.25 MG INJ IV PRN (09:30)
[2016-06-13 09:45] LABS: CREATININE 0.65 mg/dl (0.44-1.00)
[2016-06-13 09:46] LABS: CALCIUM 9.1 mg/dl (8.4-10.2)
[2016-06-13 09:47] LABS: POTASSIUM 2.7 mmol/L (3.5-5.1)
[2016-06-13] MEDS ORDERED: POTASSIUM CHLORIDE 250 ML IVPB ONE ×2 (10:00→17:00)
--- NOTE | 2016-06-13 19:47 | CONS ---
Date/Time of Note Date/Time of Note DATE: 06/13/16 TIME: 19:45 Assessment/Plan Assessment/Plan Additional Assessment/Plan IMPRESSION: 1. Cyclical vomiting. 2. Epigastric pain. 3. Hypertension. 4. status. 5. Status post 3 weeks ago. 6.hypokalemia Plan correction of K EGD in AM Consultation Date/Type/Reason Admit Date/Time June 11, 2016 at 09:54 Initial Consult Date 24 HR Interval Summary Free Text/Dictation epigastric pain Exam/Review of Systems Vital Signs Vitals Vital Signs Date Time Temp Pulse Resp B/P Pulse Ox O2 Delivery O2 Flow Rate FiO2 06/13/16 08:16 98.3 65 20 163/95 99 06/11/16 18:43 Room Air Intake and Output 06/12/16 06/12/16 06/13/16 15:00 23:00 07:00 Intake Total 600 ml 1380 ml 1700 ml Output Total 1000 ml Balance 600 ml 380 ml 1700 ml Exam Constitutional: alert, oriented, well developed Psych: nl mood/affect, no complaints Head: atraumatic, normocephalic Eyes: EOMI, PERRL, nl conjunctiva, nl lids, nl sclera ENMT: nl external ears & nose, nl lips & teeth, nl nasal mucosa & septum Neck: non-tender, supple Respiratory: clear to auscultation, normal air movement Cardiovascular: nl pulses, regular rate and rhythm Gastrointestinal: nl liver, spleen, non-tender, soft Musculoskeletal: nl extremities to inspection, nl gait and stance Extremities: normal pulses Neurological: TIMBER DEADENER II-XII intact, nl mental status, nl speech, nl strength Skin: nl turgor, No rash or lesions Lymph: nl lymph nodes Results Result Diagram: 06/13/16 0510 06/13/16 1540 Results 24 hrs Laboratory Tests Test 06/13/16 05:10 06/13/16 15:40 White Blood Count 4.4 #L Red Blood Count 3.89 L Hemoglobin 11.1 L Hematocrit 34.0 L Mean Corpuscular Volume 87.4 Mean Corpuscular Hemoglobin 28.5 L Mean Corpuscular Hemoglobin Concent 32.6 Red Cell Distribution Width 13.9 Platelet Count 431 H Mean Platelet Volume 9.1 Neutrophils % 60.3 Lymphocytes % 23.8 Monocytes % 11.1 H Eosinophils % 3.2 Basophils % 1.4 Nucleated Red Blood Cells % 0.0 Neutrophils # 2.7 Lymphocytes # 1.1 Monocytes # 0.5 Eosinophils # 0.1 Basophils # 0.1 Nucleated Red Blood Cells # 0.0 Sodium Level 137 Potassium Level 2.7 *L 3.0 L Chloride Level 101 Carbon Dioxide Level 23 Anion Gap 16 Blood Urea Nitrogen 4 L Creatinine 0.65 Glucose Level 97 Calcium Level 9.1 Medications Medications Current Medications Labetalol HCl (Normodyne) 200 mg TID PO Last administered on 06/12/16 12:41; Admin Dose 200 MG; Start 06/11/16 at 21:00; Status Future Hold Pantoprazole (Protonix Iv) 40 mg DAILY@06 IV Last administered on 06/13/16 05: 19; Admin Dose 40 MG; Start 06/12/16 at 06:00 Lorazepam (Ativan) 1 mg Q4H PRN IV nausea vomiting Last administered on 16:15; Admin Dose 1 MG; Start 06/11/16 at 19:30 Morphine Sulfate (morphine) 2 mg Q4H PRN IV pain; Start 06/11/16 at 19:30 Ondansetron HCl (Zofran Inj) 4 mg Q4H PRN IV NAUSEA AND/OR VOMITING Last administered on 06/12/16 14:18; Admin Dose 4 MG; Start 06/12/16 at 00:00 Acetaminophen (Tylenol Tab) 650 mg Q6H PRN PO PAIN AND OR ELEVATED TEMP Last administered on 06/11/16 23:52; Admin Dose 650 MG; Start 06/12/16 at 00:00 Potassium Chloride (Klor-Con 10) 30 meq DAILY PO Last administered on 06/12/16 09:09; Admin Dose 30 MEQ; Start 06/12/16 at 09:00 Hydromorphone HCl (Dilaudid) 1 mg Q4H PRN IV PAIN Last administered on 14:50; Admin Dose 1 MG; Start 06/12/16 at 15:00 Trimethobenzamide HCl (Tigan) 200 mg Q6H PRN IM NAUSEA AND/OR VOMITING Last administered on 06/12/16 20:55; Admin Dose 200 MG; Start 06/12/16 at 18:30 Oxycodone HCl (Roxicodone) 10 mg Q4H PRN PO PAIN; Start 06/12/16 at 18:30 Enalaprilat 0.625 mg 0.625 mg Q4H PRN IV sbp >160 Last administered on 09:48; Admin Dose 0.625 MG; Start 06/13/16 at 09:30 Potassium Chloride 250 ml @ 62.5 mls/hr ONCE ONCE IVPB Last administered on 17:47; Admin Dose 62.5 MLS/HR; Start 06/13/16 at 17:00; Stop 06/13/16 at 20:59 Potassium Chloride/Dextrose/ Sod Cl (D5-NS + KCl 20 Meq) 1,000 ml @ 80 mls/hr [id number] IV ; Start 06/13/16 at 19:30 Amitriptyline HCl (Elavil) 50 mg HS PO ; Start 06/13/16 at 21:00 RAYMUNDO THORNTON MD June 13, 2016 19:47
[2016-06-13 20:09] VITALS: BP 151/97; PULSE 74; RESP 16
--- NOTE | 2016-06-13 22:35 | PN ---
DATE: 06/13/2016 SUBJECTIVE: Patient's endoscopy had to be cancelled earlier this morning due to hypokalemia. She is reporting no nausea, vomiting, or abdominal pain at this time, even after a clear liquid diet, but she also reported that her nausea and vomiting usually only starts when she starts eating more solids. OBJECTIVE VITAL SIGNS: Temperature 98.3, blood pressure 153/95, pulse of 65, respiration rate 20, O2 saturation 99% on room air. HEENT: Pupils equally round, reactive to light. Oropharynx: Clear. LUNGS: Clear to auscultation. CARDIAC: Regular rate and rhythm. ABDOMEN: Active bowel sounds, soft, nondistended, nontender. EXTREMITIES: No clubbing, cyanosis, or edema. LABORATORY DATA: WBC 4.4, hemoglobin 11.1, hematocrit 34.0, platelet count 431, 000. Sodium 137, potassium 2.7, which came up to 3.0 after 40 mEq IV of KCl, chloride 101, carbon dioxide 23, BUN 4, creatinine 0.65, glucose 97, calcium 9.1. ASSESSMENT AND PLAN: 1. Abdominal pain, nausea, and vomiting, most likely due to cyclic vomiting syndrome, and will need to be ruled out for acute gastric pathology prior to advancement of diet. Patient reports that she previously did well on Elavil 50mg and if this helps, then she is willing to stop the breast feeding. 2. Hypokalemia may be due to the vomiting, but continue IV potassium replacement and recheck potassium serially. Dictated By: DOUG HAMMONDS MD DP/HENNY Conf#: [id number] DID#: [id number] MTDD
[2016-06-13] MEDS: D5-NS + KCL 20 MEQ 1,000 ML IV SCH (22:53)
[2016-06-13] MEDS: AMITRIPTYLINE 50 MG TAB PO SCH (22:53)
[2016-06-13] MEDS: ONDANSETRON 4 MG INJ IV PRN (23:42)
[2016-06-13] MEDS: HYDROmorphONE 1 MG/ML SYG IV PRN (23:42)
[2016-06-14] VITALS (9 sets, daily range): BP systolic 123–182; BP diastolic 73–111; PULSE 53–74; RESP 12–36
[2016-06-14] MEDS: PANTOPRAZOLE 40 MG INJ IV SCH ×2 (06:16→17:34)
[2016-06-14] MEDS ORDERED: LIDOCAINE 2% (SDV) 5 ML INJ ONE (07:00)
[2016-06-14] MEDS ORDERED: PROPOFOL 200 MG INJ ONE (07:00)
[2016-06-14 07:30] LABS: ANION GAP 9 (8-16); CALCIUM 8.9 mg/dl (8.4-10.2); CARBON DIOXIDE 23 mmol/L (21-31); CHLORIDE 108 mmol/L (97-110); GLUCOSE 112 mg/dl (70-220); POTASSIUM 3.8 mmol/L (3.5-5.1); SODIUM 136 mmol/L (135-144)
[2016-06-14 07:37] LABS: BLOOD UREA NITROGEN < 2 mg/dl (7-20)
[2016-06-14] MEDS: POTASSIUM CHLORIDE (SR) 10 MEQ TAB PO SCH (08:06)
[2016-06-14] MEDS: D5-NS + KCL 20 MEQ 1,000 ML IV SCH ×2 (11:02→20:30)
[2016-06-14] MEDS ORDERED: hydrALAzine 20 MG INJ IV PRN (13:00)
[2016-06-14] MEDS ORDERED: FENTAnyl 50 MCG/ML VIAL IV PRN (13:00)
[2016-06-14] MEDS ORDERED: ONDANSETRON 4 MG INJ IV PRN (13:00)
[2016-06-14] MEDS ORDERED: LABETALOL HCL 20MG INJ IV PRN ×2 (13:00→15:30)
--- NOTE | 2016-06-14 13:11 | GILP ---
DATE OF PROCEDURE: PROCEDURE: Esophagogastroduodenoscopy with biopsy. INDICATION: A 31-year-old female undergoing this procedure for persistent epigastric pain, nausea a nd vomiting, unable to keep the food down. The purpose is to evaluate upper GI tract and find out t he cause of her symptoms. The risk of the procedure, related and unrelated complications, anestheti c risks, alternatives discussed and informed consent was obtained. DESCRIPTION OF PROCEDURE: The patient was brought to the GI lab, sedated by Dr. Ramirez. After optima l sedation, scope was passed with much ease into the oral cavity introitus of the esophagus was norm al. Vocal cords to my eyes appeared normal. Scope was passed with much ease into esophagus, the pr oximal and mid esophagus was totally normal. Z line was thoroughly inspected which was regular and c losed at 40 cm. There were 3 to 4 erosions identified in the form of stomach ____ 4 to 5 mm in son meter just above the Z line consistent with the diagnosis of erosive esophagitis. The patient also had a ring-like structure in the mid and distal part. The patient also had some a ring near the Z l ine. This was an incomplete ring and it was nonobstructing. Stomach mucosa revealed chronic gastri tis. Multiple biopsies obtained to rule out H. pylori infection. Duodenum, first and second part b oth were normal. Biopsies taken 3 to rule out celiac disease. Retroversion done, the fold in the f undal area just when the Z line appeared prominent. Patient also had a few fundic gland polyps. Th ose are flat 3 to 4 in number. Again, the erosive esophagitis was confirmed with infrared light. S cope was then removed with good patient tolerance. IMPRESSION: 1. Incomplete ring at gastroesophageal junction, nonobstructing. 2. Erosive esophagitis, LA class B. 3. Chronic and acute gastritis, pending biopsy report for H. pylori. 4. Normal duodenum. PLAN: Review duodenal biopsy and the stomach biopsy. In the interim, continue PPI. I will discuss with the pharmacy if there is no contraindication for ____ in a patient then I will s tart her on 50 mg at bedtime. Dictated By: RAYMUNDO DAILY/HENNY Conf#: [id number] DID#: [id number] CC: DOUG HAMMONDS MD; RAYMUNDO THORNTON MD;*[facility]*
--- NOTE | 2016-06-14 15:58 | PN ---
DATE: 06/14/2016 SUBJECTIVE: Patient is status post EGD today and that reportedly showed esophagitis and gastritis. The patient herself reports that she had some mild gases cramps upon eating clear liquids last nigh t, but that resolved after she passed gas. She is agreeable to try and advance the diet today. OBJECTIVE: VITAL SIGNS: Temperature 98.0, blood pressure 136/73, pulse of 54, respiration rate 18, O2 saturati on 98% on room air. HEENT: Pupils equally round, reactive to light. Oropharynx clear. LUNGS: Clear to auscultation. CARDIAC: Regular rate and rhythm, normal S1, S2. ABDOMEN: Active bowel sounds. Mild diffuse tenderness, nondistended. No guarding. LABORATORY DATA: This morning show sodium 136, potassium 3.8, BUN less than 2, creatinine 0.6, gluc ose 112, calcium 8.9. Endoscopy report showed an incomplete ring at the gastroesophageal junction t hat is nonobstructing. There is erosive esophagitis LA class B, there is chronic and acute gastriti s. Biopsy report for H. pylori and celiac disease was taken. ASSESSMENT AND PLAN: Abdominal pain with nausea, vomiting, most likely due to gastritis and esopha gitis after prolonged period of vomiting from cyclic vomiting syndrome. I have checked with the [facility] rm[facility] and calculated the exposure to the in the breast milk of both Elavil and omeprazole and the exposure is minimal and should have no clinical effect on the baby. We will increase the panto prazole to twice a day while patient is in the hospital with plans for discharge on either pantopraz ole once a day or omeprazole twice a day since omeprazole seems to have a little more safety profile than pantoprazole. We will continue the Elavil 50 mg at bedtime, which we started last night. I wi ll advance patient's diet very slowly from clear liquid to full liquid tonight and if tolerated, we may go to mechanical soft diet tomorrow. Dictated By: DOUG HAMMONDS MD DP/NTS Conf#: [id number] DID#: [id number]
[2016-06-14] MEDS: AMITRIPTYLINE 50 MG TAB PO SCH (21:07)
[2016-06-15] MEDS: D5-NS + KCL 20 MEQ 1,000 ML IV SCH (01:37)
[2016-06-15] MEDS: PANTOPRAZOLE 40 MG INJ IV SCH (06:54)
[2016-06-15] MEDS: POTASSIUM CHLORIDE (SR) 10 MEQ TAB PO SCH (08:29)
--- NOTE | 2016-06-15 10:17 | PDOCDIS ---
Discharge Instructions DIAGNOSIS Discharge Diagnosis: gastritis/esophagitis CONDITION Patient Condition: Good HOME CARE INSTRUCTIONS: Special Diet: bland ACTIVITY: Activity Restrictions: No Restrictions FOLLOW UP/APPOINTMENTS Appointments Patient should call for appt with Dr. Will sandovalin 2wks and with Dr. Chavez within 4wks of MONTRELL Fish MD- June 15, 2016 10:17
[2016-06-15] MEDS ORDERED: AMIT50TA3 PO (10:22)
[2016-06-15] MEDS ORDERED: LABE200T25 PO (10:22)
[2016-06-15] MEDS ORDERED: PANT40SU PO (10:23)
[2016-06-15] MEDS ORDERED: ONDA4TAB8 PO (10:23)
--- NOTE | 2016-06-15 10:36 | PN ---
DATE: 06/15/2016 SUBJECTIVE: The patient has no more abdominal pain, no nausea, no vomiting, and is tolerating a sof t diet. SUBJECTIVE: VITAL SIGNS: Temperature 98.3, pulse 74, respirations 18, blood pressure 142/83, oxygen saturation 98% on room air. GENERAL: Well-developed, thin female, in no acute distress. CHEST: Clear to auscultation. HEART: Regular rate and rhythm. ABDOMEN: Soft, nondistended, nontender, normal active bowel sounds. ASSESSMENT AND PLAN: Gastritis/esophagitis. The patient is doing well, tolerating a soft diet, without any abdominal pain, nausea, vomiting. Juan lofton is stable for discharge to home. Patient will be discharged on pantoprazole 40 mg b.i.d. and Zofran 4 mg q.6 hours p.r.n. The patient will call Dr. Solis for a followup within the next [address] Chavez to follow up within the next 4 weeks. Dictated By: MONTRELL MOLINA MD, SR/HENNY Conf#: [id number] DID#: [id number]
== END 2016-06-15 11:05 | disposition home or self-care (01) | DRG 392 ==
LOC: E/R 09:01 → MS2 09:54
PROVIDERS: ADMIT Internal Medicine; ATTEND Internal Medicine
PROC: 0DB98ZX Excision of Duodenum, Via Natural or Artificial Opening Endoscopic, Diagnostic (ICD-10-PCS; 2016-06-14)
PROC: 0DB68ZX Excision of Stomach, Via Natural or Artificial Opening Endoscopic, Diagnostic (ICD-10-PCS; principal; 2016-06-14 12:00)
DX: K29.00 Acute gastritis without bleeding (principal); I10 Essential (primary) hypertension; K22.10 Ulcer of esophagus without bleeding; G43.A0 Cyclical vomiting, in migraine, not intractable; D64.9 Anemia, unspecified; R10.13 Epigastric pain; E87.6 Hypokalemia; K29.50 Unspecified chronic gastritis without bleeding; Z87.891 Personal history of nicotine dependence
CPT/HCPCS: 36415; 80048; 80053; 81003; 83690; 84132; 85025; 96374; 96375; C9113; J1170; J2060; J2405; J3250; J3480; J7030; J7042

== ENCOUNTER 2016-06-21 03:26 | Emergency (ER) | payer BC ==
[~2016-06-21] VITALS: Ht 160 cm; Wt 48.0 kg
[~2016-06-21 03:26] MED LIST changes: +AMIT50TA3 PO; -LORA1TAB PO; +ONDA4TAB8 PO; +PANT40SU PO; -PANT40TA4 PO
[2016-06-21 03:29] VITALS: Ht 160 cm; Wt 48.0 kg
--- NOTE | 2016-06-21 04:09 | ERA ---
ER Documentation Chief Complaint Date/Time DATE: 06/21/16 TIME: 04:08 Chief Complaint Nausea vomiting HPI The patient is a 31 years old female, presenting to the ER because of recurrent nausea vomiting for 1 day, associated with constipation. She has history of cyclic vomiting syndrome. She had an EGD on June 14, 2016 that showed gastritis and esophagitis and was put on PPI. She denies any hematemesis, fever, chills, neck pain, chest pain, dyspnea. She complains of vague abdominal discomfort, denies dysuria. She does not smoke nor drink Past medical history: Cyclic vomiting syndrome, hypertension, gastritis, erosive esophagitis Past surgical history: 5 weeks ago ROS All systems reviewed and are negative except as per history of present illness. Medications Home Meds Active Scripts Pantoprazole Sodium (Protonix) 40 Mg Granpkt., 40 MG PO BID for 30 Days, #60 Prov:MONTRELL MOLINA 06/15/16 Ondansetron Hcl* (Zofran*) 4 Mg Tablet, 4 MG PO Q6H Y for NAUSEA AND OR VOMITING for 10 Days, #30 TAB Prov:MONTRELL MOLINA 06/15/16 Amitriptyline Hcl* (Amitriptyline Hcl*) 50 Mg Tablet, 50 MG PO HS for 30 Days, # 30 TAB Prov:MONTRELL MOLINA 06/15/16 Labetalol Hcl* (Labetalol Hcl*) 200 Mg Tablet, 200 MG PO TID for 30 Days, #90 TAB Prov:MONTRELL MOLINA 06/15/16 Discontinued Reported Medications Lorazepam* (Lorazepam*) 1 Mg Tablet, 1 MG PO BID Y for VOMITTING, #30 TAB 03/25/16 Discontinued Scripts Pantoprazole* (Pantoprazole*) 40 Mg Tablet., 40 MG PO DAILY@06 for 30 Days, # 30 Prov:DOUG HAMMONDS MD 06/07/16 Allergies Allergies: Coded Allergies: metoclopramide (Verified Allergy, Mild, 06/21/16) Penicillins (Verified Allergy, Unknown, 06/21/16) PMhx/Soc History of Surgery: Yes ( csection x1) Anesthesia Reaction: No Hx Neurological Disorder: No Hx Respiratory Disorders: No Hx Cardiac Disorders: Yes (htn ) Hx Psychiatric Problems: No Hx Miscellaneous Medical Probl: No Hx Alcohol Use: Yes (occasional) Hx Substance Use: No Hx Tobacco Use: No Smoking Status: Never smoker Physical Exam Vitals Vital Signs Date Time Temp Pulse Resp B/P Pulse Ox O2 Delivery O2 Flow Rate FiO2 06/21/16 04:41 109 16 172/111 99 06/21/16 03:29 98.0 109 18 179/109 99 Physical Exam Const: No acute distress. Very anxious Head: Atraumatic. Eyes: Normal Conjunctiva. ENT: Normal External Ears, Nose and Mouth. Neck: Full range of motion. No meningismus. Resp: Clear to auscultation bilaterally. Cardio: Regular rate and rhythm, no murmurs. Abd: Soft, non distended, normal bowel sounds, non tender. Skin: No petechiae or rashes. Back: No midline or flank tenderness. Ext: No cyanosis, or edema. Neur: Awake and alert. No focal deficit Psych: Normal Mood and Affect. Result Diagram: 06/21/16 0430 06/21/16 0430 Results 24 hrs Laboratory Tests Test 06/21/16 04:30 06/21/16 04:40 White Blood Count 6.710^3/ul Red Blood Count 4.5810^6/ul Hemoglobin 12.8g/dl Hematocrit 40.9% Mean Corpuscular Volume 89.3fl Mean Corpuscular Hemoglobin 27.9pg Mean Corpuscular Hemoglobin Concent 31.3g/dl Red Cell Distribution Width 13.9% Platelet Count 39884^3/UL Mean Platelet Volume 9.0fl Neutrophils % 81.2% Lymphocytes % 13.6% Monocytes % 2.4% Eosinophils % 0.7% Basophils % 0.9% Nucleated Red Blood Cells % 0.0/100WBC Neutrophils # 5.510^3/ul Lymphocytes # 0.910^3/ul Monocytes # 0.210^3/ul Eosinophils # 0.110^3/ul Basophils # 0.110^3/ul Nucleated Red Blood Cells # 0.010^3/ul Prothrombin Time 12.3Sec Prothrombin Time Ratio 1.0 INR International Normalized Ratio 0.91 Activated Partial Thromboplast Time 34.0Sec Sodium Level 136mmol/L Potassium Level 4.1mmol/L Chloride Level 101mmol/L Carbon Dioxide Level 24mmol/L Anion Gap 15 Blood Urea Nitrogen 6mg/dl Creatinine 0.68mg/dl Glucose Level 155mg/dl Uric Acid 4.4mg/dl Calcium Level 10.0mg/dl Magnesium Level 1.8mg/dl Total Bilirubin 0.4mg/dl Direct Bilirubin 0.00mg/dl Indirect Bilirubin 0.4mg/dl Aspartate Amino Transf (AST/SGOT) 25IU/L Alanine Aminotransferase (ALT/SGPT) 24IU/L Alkaline Phosphatase 102IU/L Total Protein 8.9g/dl Albumin 4.6g/dl Globulin 4.30g/dl Albumin/Globulin Ratio 1.06 Lipase 144U/L Bedside Urine pH (LAB) 8.5 Bedside Urine Protein (LAB) 1+ Bedside Urine Glucose (UA) Negative Bedside Urine Ketones (LAB) Negative Bedside Urine Blood 2+ Bedside Urine Nitrite (LAB) Negative Bedside Urine Leukocyte Esterase (L Trace Current Medications Medications (Trade) Dose Ordered Sig/Laith Route PRN Reason Start Time Stop Time Status Last Admin Dose Admin Lorazepam (Ativan) 1 mg ONCE ONCE IV 06/21/16 04:30 06/21/16 04:31 DC 06/21/16 04:40 Ondansetron HCl (Zofran Inj) 4 mg ONCE STAT IV 06/21/16 04:18 06/21/16 04:21 DC 06/21/16 04:40 Procedures/MDM MEDICAL MAKING DECISION: The patient is a 31-year-old female, presenting with recurrent nausea vomiting, most likely due to cyclic vomiting syndrome, acute anxiety. She was treated with Ativan 1 mg IV and Zofran formalin IV for acute anxiety and vomiting with good response. The differential diagnoses considered include but are not limited to cholelithiasis, cholecystitis, cystitis, pancreatitis, hepatitis, gastritis, peptic ulcer disease, gastric ulcer, appendicitis, diverticulitis, cholangitis, choledocholithiasis, partial small bowel obstruction. Departure Diagnosis: Primary Impression: Cyclic vomiting syndrome Condition: Good Comments I discussed the findings with the patient. I advised the patient to follow-up with the primary physician in about 1-2 days, sooner if needed and return if any concern. OMAR ROSARIO MD June 21, 2016 04:09
[2016-06-21] MEDS ORDERED: ONDANSETRON 4 MG INJ IV STA (04:18)
[2016-06-21] MEDS ORDERED: LORAZEPAM 2 MG INJ IV ONE ×3 (04:30→09:00)
[2016-06-21 04:39] LABS: URINE BLOOD (Dip) POC 2+ (NEGATIVE)
[2016-06-21 04:42] LABS: ADD SCAN DIFF NO
[2016-06-21 04:54] LABS: BASOPHIL # 0.1 10^3/ul (0.0-0.1); BASOPHILS % 0.9 % (0.0-2.0); EOSINOPHILS # 0.1 10^3/ul (0.0-0.5); EOSINOPHILS % 0.7 % (0.0-7.0); HEMATOCRIT 40.9 % (37.0-47.0); HEMOGLOBIN 12.8 g/dl (12.0-16.0); LYMPHOCYTES # 0.9 10^3/ul (0.8-2.9); LYMPHOCYTES % 13.6 % (15.0-51.0); MEAN CORPUSCULAR HEMOGLOBIN 27.9 pg (29.0-33.0); MEAN CORPUSCULAR HGB CONC 31.3 g/dl (32.0-37.0); MEAN CORPUSCULAR VOLUME 89.3 fl (82.0-101.0); MONOCYTE # 0.2 10^3/ul (0.3-0.9); MONOCYTES % 2.4 % (0.0-11.0); NEUTROPHIL # 5.5 10^3/ul (1.6-7.5); NEUTROPHILS % 81.2 % (39.0-77.0); PLATELET COUNT 446 10^3/UL (140-415); RED BLOOD COUNT 4.58 10^6/ul (4.20-5.40); RED CELL DISTRIBUTION WIDTH 13.9 % (11.5-14.5); WHITE BLOOD COUNT 6.7 10^3/ul (4.8-10.8)
[2016-06-21 05:02] LABS: INR 0.91; PROTIME 12.3 Sec (12.2-14.2)
[2016-06-21 05:08] LABS: ALBUMIN 4.6 g/dl (3.3-4.9); ALBUMIN/GLOBULIN RATIO 1.06; BILIRUBIN,INDIRECT 0.4 mg/dl (0-1.1); BILIRUBIN,TOTAL 0.4 mg/dl (0.2-1.3); CREATININE 0.68 mg/dl (0.44-1.00); MAGNESIUM 1.8 mg/dl (1.7-2.5); POTASSIUM 4.1 mmol/L (3.5-5.1); TOTAL PROTEIN 8.9 g/dl (6.1-8.1); URIC ACID 4.4 mg/dl (3.1-7.9)
[2016-06-21] MEDS ORDERED: LABETALOL HCL 20MG INJ IV ONE (09:00)
[2016-06-21 13:30] VITALS: TEMP 98.5
[2016-06-21 14:30] VITALS: BP 133/82; PULSE 103; RESP 16
[2016-06-21] MEDS ORDERED: POLY17PO6 PO (14:40)
--- NOTE | 2016-06-21 14:42 | EN ---
Date/Time of Note Date/Time of Note DATE: 06/21/16 TIME: 14:40 ER Progress Note Patient is a 31-year-old female with cyclical vomiting who was discharged by Dr. Fuentes prior to my shift. The patient was still in the ER after Dr. Fuentes left. Patient's nurse notified me that the patient had tachycardia and elevated blood pressure. Patient stated that she still felt nauseous. Patient was given IV labetalol in place of her normal p.o. labetalol, and was given a dose of IV Ativan. She stated that she felt better but was not quite ready to go home. She was observed in the ER for more than 8 hours during my shift, including serial evaluations for monitoring of vital signs and symptoms. The patient ultimately stated that she felt okay to go home, but requested a prescription for medication for constipation. Patient has a benign abdominal exam. I reviewed the patient's labs and UA and there are unremarkable. Patient states that she has antinausea medications at home. JEANNA MENARD MD June 21, 2016 14:42
== END 2016-06-21 14:55 | disposition home or self-care (01) ==
LOC: E/R 03:26
DX: G43.A0 Cyclical vomiting, in migraine, not intractable (principal); I10 Essential (primary) hypertension; R10.9 Unspecified abdominal pain
CPT/HCPCS: 80053; 81003; 83690; 83735; 84560; 85025; 85610; 85730; J2060; J2405; 36415; 96374; 96375; 96376

== ENCOUNTER → 2016-07-17 | Outpatient (CLI) | payer BC ==
[~2016-07-17] MED LIST changes: +POLY17PO6 PO
[2016-07-17 15:40] LABS: CREATININE 0.77 mg/dl (0.44-1.00)
== END | disposition home or self-care (01) ==
LOC: LAB 14:19
PROVIDERS: ATTEND Internal Medicine Gastroenterology
DX: R10.9 Unspecified abdominal pain (principal)
CPT/HCPCS: 82565; 84520

== ENCOUNTER → 2016-07-17 | Outpatient (CLI) | payer BC ==
[2016-07-17 15:18] LABS: ADD SCAN DIFF NO
[2016-07-17 15:29] LABS: BASOPHIL # 0.1 10^3/ul (0.0-0.1); EOSINOPHILS # 0.2 10^3/ul (0.0-0.5); EOSINOPHILS % 2.2 % (0.0-7.0); HEMATOCRIT 36.6 % (37.0-47.0); HEMOGLOBIN 11.9 g/dl (12.0-16.0); LYMPHOCYTES % 29.6 % (15.0-51.0); MEAN CORPUSCULAR HEMOGLOBIN 28.1 pg (29.0-33.0); MEAN CORPUSCULAR HGB CONC 32.5 g/dl (32.0-37.0); MEAN CORPUSCULAR VOLUME 86.3 fl (82.0-101.0); MEAN PLATELET VOLUME 8.5 fl (7.4-10.4); MONOCYTE # 0.6 10^3/ul (0.3-0.9); MONOCYTES % 8.6 % (0.0-11.0); NEUTROPHILS % 58.3 % (39.0-77.0); PLATELET COUNT 550 10^3/UL (140-415); RED BLOOD COUNT 4.24 10^6/ul (4.20-5.40); RED CELL DISTRIBUTION WIDTH 13.6 % (11.5-14.5); WHITE BLOOD COUNT 6.9 10^3/ul (4.8-10.8)
[2016-07-18 12:55] LABS: ANA SCREEN NEGATIVE (NEGATIVE)
== END | disposition home or self-care (01) ==
LOC: LAB 14:24
PROVIDERS: ATTEND Internal Medicine
DX: M25.50 Pain in unspecified joint (principal); M79.1 Myalgia
CPT/HCPCS: 84134; 85025; 85651; 86038; 86430

== ENCOUNTER → 2016-07-25 | Outpatient (CLI) | payer BC ==
[~2016-07-25] MED LIST changes: +BARIUM SULF 2% 450 ML BTL (BERRY SMOOTHIE) PO ONE; +IOHEXOL 300MG/ML 150 ML BTL ONE; +SOD CHLORIDE 0.9% 100 ML ONE
--- NOTE | 2016-07-25 18:20 | RADRPT ---
PROCEDURE: CT Abdomen and Pelvis with IV contrast. CLINICAL INDICATION: Pain. TECHNIQUE: CT scan of the abdomen and pelvis was performed on a multidetector slice CT scanner. 90 cc of Omnipaque 300 intravenous contrast material was utilized. Oral contrast material was utilized . Sagittal and coronal reformatted images were obtained from the axial source images. Images were r eviewed on a high-resolution PACS workstation. Exam CTDlvol = 6 mGy and DLP = 275th Gy-cm. One of e following 3 dose reduction techniques were used: Automated exposure control; adjustment of the mA and/or kV according to patient size; or use of iterative reconstruction technique. COMPARISON: MRI abdomen 06/07/2016. FINDINGS: There is no obstruction or ileus. The appendix is visualized and normal in appearance, without evid ence for appendicitis.. There is no evidence for diverticulitis. There is no free fluid. The liver is overall normal in size. No intrahepatic lesions are identified. The gallbladder is norm al in appearance. There is no definite biliary ductal dilation. Pancreas is normal in appearance. e spleen is unremarkable.. There are no adrenal masses. The aorta is normal caliber.. Kidneys are normal in appearance without hydronephrosis, mass or calculus. There is no perinephric c ollection. Ureters are of normal caliber and without evidence for an obstructing calculus The urinar y bladder is normal in appearance.. A small ventral pelvic subcutaneous incision scar from prior section is present. There is no abnormal collection or hernia. There is a probable small cervical Nabothian cyst. Uterus is nor mal appearance. Right ovary contains a 2.1 x 2 cm cyst. The left ovary is not well visualized. Limited evaluation of the lung bases is unremarkable. The bones are unremarkable. IMPRESSION: 1. No bowel obstruction or ileus. 2. No evidence for a colitis or enteritis. 3. Small ventral pelvic subcutaneous incision scar from prior section. No abnormal collec tion. 4. Right ovarian cyst. Probable cervical Nabothian cyst. 5. No free fluid. 6. Otherwise negative. RPTAT: [facility]VK .Alli Gonzales MD, MD Date Time Electronically viewed and signed by .Alli Gonzales MD, on 07/25/2016 18:20 .K/
== END | disposition home or self-care (01) ==
LOC: C/S 08:38
PROVIDERS: ATTEND Internal Medicine Gastroenterology
DX: R10.2 Pelvic and perineal pain (principal)
CPT/HCPCS: 74177; 84703; Q9967

== ENCOUNTER 2016-08-01 12:03 | Inpatient (IN) | payer BC ==
[~2016-08-01] VITALS: Ht 152.4 cm; Wt 55.0 kg
[~2016-08-01 12:03] MED LIST changes: -BARIUM SULF 2% 450 ML BTL (BERRY SMOOTHIE) PO ONE; -IOHEXOL 300MG/ML 150 ML BTL ONE; -SOD CHLORIDE 0.9% 100 ML ONE
[2016-08-01] MEDS ORDERED: ONDANSETRON 4 MG INJ IV STA (12:18)
[2016-08-01] MEDS ORDERED: KETOROLAC 15 MG INJ IV STA (12:18)
[2016-08-01] MEDS ORDERED: SOD CHLORIDE 0.9% 1,000 ML IV STA (12:18)
[2016-08-01] MEDS ORDERED: LORAZEPAM 2 MG INJ IV ONE ×2 (12:30→15:00)
[2016-08-01 13:01] LABS: ADD SCAN DIFF NO
[2016-08-01 13:02] LABS: BASOPHIL # 0.1 10^3/ul (0.0-0.1); BASOPHILS % 0.6 % (0.0-2.0); HEMATOCRIT 37.8 % (37.0-47.0); HEMOGLOBIN 12.6 g/dl (12.0-16.0); LYMPHOCYTES # 0.9 10^3/ul (0.8-2.9); LYMPHOCYTES % 6.5 % (15.0-51.0); MEAN CORPUSCULAR HEMOGLOBIN 28.4 pg (29.0-33.0); MEAN CORPUSCULAR HGB CONC 33.3 g/dl (32.0-37.0); MEAN CORPUSCULAR VOLUME 85.3 fl (82.0-101.0); MEAN PLATELET VOLUME 8.7 fl (7.4-10.4); MONOCYTE # 0.3 10^3/ul (0.3-0.9); MONOCYTES % 2.3 % (0.0-11.0); NEUTROPHIL # 12.3 10^3/ul (1.6-7.5); NEUTROPHILS % 90.1 % (39.0-77.0); PLATELET COUNT 460 10^3/UL (140-415); RED BLOOD COUNT 4.43 10^6/ul (4.20-5.40); RED CELL DISTRIBUTION WIDTH 13.1 % (11.5-14.5); WHITE BLOOD COUNT 13.7 10^3/ul (4.8-10.8)
[2016-08-01 13:04] LABS: ADD UMIC YES; UR AMORPHOUS CRYSTAL FEW /HPF (NONE SEEN); UR ASCORBIC ACID NEGATIVE (NEGATIVE); UR BILIRUBIN (Dip) NEGATIVE (NEGATIVE); UR BLOOD (Dip) NEGATIVE (NEGATIVE); UR CLARITY TURBID (CLEAR); UR COLOR YELLOW (YELLOW); UR GLUCOSE (Dip) NEGATIVE (NEGATIVE); UR KETONES (Dip) 1+ mg/dL (NEGATIVE); UR LEUKOCYTE ESTERASE (Dip) NEGATIVE Leu/ul (NEGATIVE); UR MUCUS FEW /HPF (NONE SEEN); UR NITRITE (Dip) NEGATIVE (NEGATIVE); UR RBC 1 /HPF (0-5); UR SPECIFIC GRAVITY (Dip) 1.015 (1.003-1.030); UR TOTAL PROTEIN (Dip) NEGATIVE (NEGATIVE); UR UROBILINOGEN (Dip) NEGATIVE (NEGATIVE); UR WBC CLUMPS MANY /HPF (NONE SEEN)
[2016-08-01 13:19] LABS: ALBUMIN/GLOBULIN RATIO 1.25; BILIRUBIN,INDIRECT 0.2 mg/dl (0-1.1); BILIRUBIN,TOTAL 0.2 mg/dl (0.2-1.3); CREATININE 0.68 mg/dl (0.44-1.00); POTASSIUM 3.9 mmol/L (3.5-5.1)
[2016-08-01] MEDS ORDERED: SOD CHLORIDE 0.9% 1,000 ML IV ONE (15:00)
--- NOTE | 2016-08-01 15:57 | ERD ---
ER Documentation Chief Complaint Date/Time DATE: 08/01/16 TIME: 15:53 Chief Complaint MULTIPLE VISITS C/O SAME VOMITING HPI 31-year-old woman presents with complaints of nausea and vomiting 1 day similar to multiple previous episodes. Patient has a long history of benzodiazepine dependence and cyclic vomiting syndrome, states her symptoms usually improve with lorazepam IV, although she has been using oral Lorazepam and omeprazole at home without relief. She had EGD about 1 month ago that revealed esophagitis and gastritis. She denies fevers or chills, no hematemesis , no blood per rectum or melena, no diarrhea, no complaints of chest pain or shortness of breath. ROS All systems reviewed and are negative except as per history of present illness. Medications Home Meds Active Scripts Ondansetron Hcl* (Zofran*) 4 Mg Tablet, 4 MG PO Q8H Y for NAUSEA AND/OR VOMITING , #30 TAB Prov:MIAN ROACH MD 08/01/16 Pantoprazole Sodium (Protonix) 40 Mg GranpktKathydr, 40 MG PO BID for 30 Days, #60 Prov:MONTRELL MOLINA MD- 06/15/16 Amitriptyline Hcl* (Amitriptyline Hcl*) 50 Mg Tablet, 50 MG PO HS for 30 Days, # 30 TAB Prov:MONTRELL MOLINA 06/15/16 Labetalol Hcl* (Labetalol Hcl*) 200 Mg Tablet, 200 MG PO TID for 30 Days, #90 TAB Prov:MONTRELL MOLINA 06/15/16 Discontinued Scripts Polyethylene Glycol* (Miralax*) 17 Gm Powd.pack, 17 GM PO DAILY, #7 Prov:JEANNA MENARD MD 06/21/16 Ondansetron Hcl* (Zofran*) 4 Mg Tablet, 4 MG PO Q6H Y for NAUSEA AND OR VOMITING for 10 Days, #30 TAB Prov:MONTRELL MOLINA 06/15/16 Allergies Allergies: Coded Allergies: metoclopramide (Verified Allergy, Mild, 08/01/16) Penicillins (Verified Allergy, Unknown, 08/01/16) PMhx/Soc Benzodiazepine dependence, gastritis, cyclic vomiting syndrome History of Surgery: Yes ( csection x1) Anesthesia Reaction: No Hx Neurological Disorder: No Hx Respiratory Disorders: No Hx Cardiac Disorders: Yes (htn ) Hx Psychiatric Problems: No Hx Miscellaneous Medical Probl: No Hx Alcohol Use: Yes (occasional) Hx Substance Use: No Hx Tobacco Use: No Smoking Status: Never smoker FmHx Family History: No diabetes Physical Exam Vitals Vital Signs Date Time Temp Pulse Resp B/P Pulse Ox O2 Delivery O2 Flow Rate FiO2 08/01/16 18:28 98.2 108 16 148/96 97 08/01/16 17:27 98.2 115 16 150/99 98 08/01/16 13:41 97.5 110 20 179/94 100 Room Air 08/01/16 12:05 97.6 118 20 147/97 99 Physical Exam GENERAL: Well-developed, well-nourished, appears dehydrated, afebrile HEENT: Moist mucous membranes, pink conjunctiva, no cervical spine tenderness or step-off deformities, no goiter, no jaundice or icterus, extraocular movements intact without pain. No submandibular induration, and no pharyngeal erythema NEURO: Alert and oriented 3, cranial nerves II through XII intact bilaterally, pupils equal round reactive to light, no focal deficits or facial asymmetry, sensation intact distally Strength 5/5 in upper and lower extremities bilaterally CARDIAC: Regular rate and rhythm, no murmurs rubs or gallops LUNGS: Clear bilaterally no wheezing crackles or stridor ABDOMEN: Soft nontender, no guarding, no rigidity, no rebound, no psoas sign no obturator sign. Normoactive bowel sounds SKIN: Warm and dry to touch, no abrasions, contusions, or hematomas, no lacerations, no ecchymosis, no target lesions, and without ulcers EXTREMITIES: No clubbing cyanosis or edema, calves are bilaterally symmetrical, no Homans sign, no popliteal cord sign. Distal pulses equal and bilateral PSYCH: Normal affect without agitation or irritability Result Diagram: 08/01/16 1250 08/01/16 1250 Results 24 hrs Laboratory Tests Test 08/01/16 12:32 08/01/16 12:50 Urine Color YELLOW Urine Clarity TURBID Urine pH 9.0 Urine Specific [place] 1.015 Urine Ketones 1+mg/dL Urine Nitrite NEGATIVEmg/dL Urine Bilirubin NEGATIVEmg/dL Urine Urobilinogen NEGATIVEmg/dL Urine Leukocyte Esterase NEGATIVELeu/ul Urine Microscopic RBC 1/HPF Urine Microscopic WBC 18/HPF Urine Amorphous Crystals FEW/HPF Urine Mucus FEW/HPF Urine Hemoglobin NEGATIVEmg/dL Urine Glucose NEGATIVEmg/dL Urine Total Protein NEGATIVEmg/dl White Blood Count 13.710^3/ul Red Blood Count 4.4310^6/ul Hemoglobin 12.6g/dl Hematocrit 37.8% Mean Corpuscular Volume 85.3fl Mean Corpuscular Hemoglobin 28.4pg Mean Corpuscular Hemoglobin Concent 33.3g/dl Red Cell Distribution Width 13.1% Platelet Count 22999^3/UL Mean Platelet Volume 8.7fl Neutrophils % 90.1% Lymphocytes % 6.5% Monocytes % 2.3% Eosinophils % 0.0% Basophils % 0.6% Nucleated Red Blood Cells % 0.0/100WBC Neutrophils # 12.310^3/ul Lymphocytes # 0.910^3/ul Monocytes # 0.310^3/ul Eosinophils # 0.010^3/ul Basophils # 0.110^3/ul Nucleated Red Blood Cells # 0.010^3/ul Sodium Level 141mmol/L Potassium Level 3.9mmol/L Chloride Level 103mmol/L Carbon Dioxide Level 23mmol/L Anion Gap 19 Blood Urea Nitrogen 12mg/dl Creatinine 0.68mg/dl Glucose Level 151mg/dl Calcium Level 10.0mg/dl Total Bilirubin 0.2mg/dl Direct Bilirubin 0.00mg/dl Indirect Bilirubin 0.2mg/dl Aspartate Amino Transf (AST/SGOT) 26IU/L Alanine Aminotransferase (ALT/SGPT) 26IU/L Alkaline Phosphatase 79IU/L Total Protein 9.0g/dl Albumin 5.0g/dl Globulin 4.00g/dl Albumin/Globulin Ratio 1.25 Amylase Level 89U/L Lipase 107U/L Current Medications Medications (Trade) Dose Ordered Sig/Laith Route PRN Reason Start Time Stop Time Status Last Admin Dose Admin Sodium Chloride (NS) 1,000 ml @ 1,000 mls/hr Q1H STAT IV 08/01/16 12:18 08/01/16 13:17 DC 08/01/16 13:03 Ondansetron HCl (Zofran Inj) 4 mg ONCE STAT IV 08/01/16 12:18 08/01/16 12:19 DC 08/01/16 12:54 Ketorolac Tromethamine (Toradol) 15 mg ONCE STAT IV 08/01/16 12:18 08/01/16 12:19 DC 08/01/16 12:54 Lorazepam (Ativan) 1 mg ONCE ONCE IV 08/01/16 12:30 08/01/16 12:31 DC 08/01/16 12:55 Lorazepam 1 mg 1 mg ONCE ONCE IV 08/01/16 15:00 08/01/16 15:01 DC 08/01/16 15:02 Sodium Chloride (NS) 1,000 ml @ 1,000 mls/hr Q1H ONCE IV 08/01/16 15:00 08/01/16 15:59 DC 08/01/16 15:01 Procedures/MDM IV line was established patient was placed on park superintendent rhythm strip revealed a sinus rhythm at about 80 bpm with upright P and T waves. Patient was afebrile. I administered 2 L normal saline intravenously as well as lorazepam 1 mg IV 2 doses with relief in her symptoms. Patient had no episodes of vomiting or diarrhea while here in the emergency department and multiple repeat abdominal examinations performed by me at the bedside revealed a soft nontender belly without guarding or rigidity. Patient remained afebrile and was asymptomatic after medications were administered. Patient has no genitourinary complaints despite isolated pyuria, we will defer antibiotic management pending urine cultures. CBC revealed a reactive leukocytosis of 14 consistent with vomiting, electrolytes were unremarkable, liver function tests were normal, urinalysis revealed pyuria. Patient has continued complaints of nausea and severe epigastric abdominal pain and is requesting admission for continued medical management and IV hydration. Patient will be admitted to [facility] for continued management. Departure Diagnosis: Primary Impression: Cyclic vomiting syndrome Vomiting Intractability: non-intractable Nausea presence: with nausea Qualified Code: G43.A0 - Non-intractable cyclical vomiting with nausea Additional Impressions: Dehydration Benzodiazepine dependence Condition: Fair MIAN ROACH MD Aug 01, 2016 15:57 MIAN ROACH MD Aug 01, 2016 15:57
[2016-08-01] MEDS ORDERED: ONDA4TAB8 PO (16:08)
[2016-08-01] MEDS ORDERED: ONDANSETRON 4 MG INJ IV PRN (20:00)
[2016-08-01 21:49] VITALS: TEMP 98.2
[2016-08-01 22:10] VITALS: BP 157/91; RESP 20
[2016-08-01] MEDS: SOD CHLORIDE 0.9% 1,000 ML IV SCH (23:00)
[2016-08-01] MEDS ORDERED: LORAZEPAM 0.5 MG TAB PO PRN (23:00)
[2016-08-01 23:46] VITALS: Ht 152.4 cm; Wt 55.0 kg
[2016-08-02 05:46] LABS: ADD SCAN DIFF NO
[2016-08-02 05:51] LABS: BASOPHILS % 0.2 % (0.0-2.0); HEMOGLOBIN 12.1 g/dl (12.0-16.0); LYMPHOCYTES # 1.3 10^3/ul (0.8-2.9); LYMPHOCYTES % 9.8 % (15.0-51.0); MEAN CORPUSCULAR HEMOGLOBIN 27.8 pg (29.0-33.0); MEAN CORPUSCULAR HGB CONC 32.7 g/dl (32.0-37.0); MEAN CORPUSCULAR VOLUME 85.1 fl (82.0-101.0); MEAN PLATELET VOLUME 9.1 fl (7.4-10.4); MONOCYTE # 0.6 10^3/ul (0.3-0.9); MONOCYTES % 4.5 % (0.0-11.0); NEUTROPHILS % 85.3 % (39.0-77.0); PLATELET COUNT 483 10^3/UL (140-415); RED BLOOD COUNT 4.35 10^6/ul (4.20-5.40); WHITE BLOOD COUNT 12.9 10^3/ul (4.8-10.8)
[2016-08-02 06:42] LABS: CALCIUM 9.3 mg/dl (8.4-10.2); CREATININE 0.66 mg/dl (0.44-1.00); POTASSIUM 3.5 mmol/L (3.5-5.1)
[2016-08-02 07:27] VITALS: BP 134/80; RESP 18
[2016-08-02] MEDS: KETOROLAC 15 MG INJ IV PRN ×2 (08:49→15:00)
[2016-08-02] MEDS: ONDANSETRON 4 MG INJ IV PRN ×2 (08:49→15:00)
[2016-08-02] MEDS: NEBIVOLOL 5 MG TAB PO SCH ×2 (08:50→21:09)
[2016-08-02] MEDS: SOD CHLORIDE 0.9% 1,000 ML IV SCH (13:25)
[2016-08-02] MEDS ORDERED: TRIMETHOBENZAMIDE 100 MG/ML VIAL IM PRN (15:30)
[2016-08-02] MEDS ORDERED: ALPRAZOLAM 1 MG TAB PO PRN (15:30)
--- NOTE | 2016-08-02 17:03 | HP ---
DATE OF ADMISSION: 08/01/2016 CHIEF COMPLAINT: Nausea, vomiting. HISTORY OF PRESENT ILLNESS: This 31-year-old female with history of cyclic vomiting syndrome, prese nted to the emergency room on the day of admission with 2 days of intractable nausea, vomiting, and the beginning of some epigastric pain radiating down to the hypogastric area. Patient noted that he r nausea, vomiting, and abdominal pain was well controlled on nortriptyline 10 mg t.i.d. until about a week ago when she was scheduled to return to work. At that time her nausea started back on Amitri ptyline 50 mg p.o. at bedtime and pantoprazole or omeprazole 20 mg b.i.d. until she was scheduled to return to work a couple weeks ago. She then began having abdominal pain and nausea and vomiting ag ain. The patient was seen in the office and started on nortriptyline 10 mg p.o. t.i.d., which she r eported as improving her abdominal pain, but not the nausea. The Ativan helps to bring down the naus ea very minimally and made her very groggy. The Zofran did not seem to help, so patient was tried on a few days of the Xanax 1 mg p.o. b.i.d. The patient came back to the office 2 days prior to admiss rob, reporting that the Xanax did not help the nausea any more than Ativan did, but definitely had l ess side effect. At that time, we tried to up the dosage of Pamelor from 10 mg p.o. t.i.d. to 25 mg p.o. t.i.d., but patient has been having intractable nausea and vomiting since then and was unable to keep down any medications. She arrived in the emergency room when her abdominal pain started to c ome back. In the ER, the patient was noted to have increased WBC and increased total protein, album in, globulin and BUN consistent with dehydration. Her abdominal CT was not repeated since she just had it done on 25 of July, which was unremarkable. The patient had a previous MRA of the abdomen to check for superior mesenteric artery syndrome and that was negative. The patient is thus admitte d for symptom control and workup of intractable nausea, vomiting, abdominal pain and new onset leuko cytosis. PAST MEDICAL HISTORY: 1. Cyclic vomiting syndrome. 2. Hypertension. 3. Status post with a in the beginning of May. ALLERGIES 1. PENICILLIN. 2. METOCLOPRAMIDE. MEDICATIONS: On admission includes: 1. Nortriptyline 25 mg p.o. t.i.d. 2. Xanax 1 mg p.o. b.i.d. 3. Labetalol 200 mg p.o. t.i.d. 4. Pantoprazole 40 mg p.o. b.i.d. SOCIAL HISTORY: The patient does not smoke, does not drink alcohol. She lives at home with her hus band and new baby. Her parents also help out with the baby. 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 FAMILY HISTORY: Noncontributory. OBJECTIVE: GENERAL: Well-developed, well-nourished female who is awake and alert. The patient is crying in bed from the nausea and abdominal pain. VITAL SIGNS: Temperature 98.5, blood pressure 134/80, pulse of 111, respiration rate of 18, O2 satu ration 97% on room air. HEENT: Anicteric sclerae. Oropharynx clear. LUNGS: Clear to auscultation. CARDIAC: Regular rate and rhythm, normal S1, S2. ABDOMEN: Mild epigastric tenderness. Active bowel sounds. Nondistended. EXTREMITIES: No clubbing, cyanosis, or edema. LABORATORY: WBC 12.9, hemoglobin 12.1, hematocrit 37.0, platelet count 483,000. Sodium 134, potass ium 3.5, BUN 10, creatinine 0.66, glucose 98, calcium 9.3. Urinalysis shows a pH of 9.0, specific g ravity of 1.015, 1+ ketones, 1 RBC and 18 WBC per high power field. There is some mild amorphous cr ystals and a few mucus, but no glucose, protein, bilirubin, nor nitrite. IMPRESSION: 1. Intractable nausea and vomiting. This appears to be exacerbation of the patient's cyclic vomiti ng syndrome; however, there are some new features that were not present on her previous admissions, including elevated WBC and elevated total protein, globulin and albumin. I will check her blood and urine culture for possible sources of infection and in the event that she has an occult urinary tra ct infection causing the current episode of nausea, vomiting will go ahead and start her on an antib iotic to control symptoms. I will also do a brief screening for autoimmune disease that might cause abdominal pain, nausea and vomiting, but I believe that this has been looked at in the past. For tr eatment will resume her Nortriptyline 25 mg p.o. t.i.d. with meals since this controls her abdominal pain. Will also resume the Elavil, which was helping with her sleep and cyclic vomiting syndrome. The patient also will be started back on pantoprazole 40 mg IV b.i.d. for her known gastritis which is mostly caused by the chronic vomiting. I will resume 2 other medications as needed for her nause a, vomiting, and anxiety. The Tigan appears to be one of the medications she could tolerate that may help control her nausea and the Xanax appears to be 1 medication that she could tolerate for her an xiety, which may be triggering the cyclic vomiting syndrome or intestinal migraine that she is havin g. For this purpose, we will also try patient on a Lexapro 10 mg daily for some long-term control of stress and anxiety. 2. Hypertension. Resume beta darby. The patient was started on Bystolic last night. I will sona p her on this since she is not any longer and it is easier to take than the labetalol. Dictated By: DOUG HAMMONDS MD DP/HENNY Conf#: [id number] DID#: [id number]
[2016-08-02] MEDS: PANTOPRAZOLE 40 MG INJ IV SCH (17:56)
[2016-08-02] MEDS: LEVOFLOXACIN 500MG/D5W (PMX) 100 ML IVPB SCH (19:53)
[2016-08-02 20:00] VITALS: BP 120/57; RESP 16
[2016-08-02] MEDS: AMITRIPTYLINE 50 MG TAB PO SCH (21:09)
[2016-08-02] MEDS: NORTRIPTYLINE 25 MG CAP PO SCH (21:09)
--- NOTE | 2016-08-02 21:10 | RADRPT ---
PROCEDURE: XR Chest. CLINICAL INDICATION: Infection. TECHNIQUE: PA and Lateral views of the chest were obtained. COMPARISON: 05/04/2016. FINDINGS: Previously seen nasogastric tube is removed. The cardiomediastinal silhouette is within normal limits. Mild atelectasis versus air space disease at the left retrocardiac region. This is new over interval since 05/04/2016. The lungs are otherwis e clear. No signs of pleural fluid or pneumothorax are seen. The osseous structures and soft tissues are unremarkable. IMPRESSION: New mild atelectasis versus airspace disease at the left retrocardiac region when para RPTAT: [facility] Physician Maddi Date Time Electronically viewed and signed by Physician Maddi on 08/02/2016 21:09 RS/
[2016-08-03] MEDS: SOD CHLORIDE 0.9% 1,000 ML IV SCH ×3 (01:40→15:42)
[2016-08-03] MEDS: PANTOPRAZOLE 40 MG INJ IV SCH ×2 (05:52→17:45)
[2016-08-03 07:09] LABS: ADD SCAN DIFF NO
[2016-08-03 07:21] LABS: BASOPHIL # 0.1 10^3/ul (0.0-0.1); BASOPHILS % 1.3 % (0.0-2.0); EOSINOPHILS # 0.1 10^3/ul (0.0-0.5); EOSINOPHILS % 1.3 % (0.0-7.0); HEMATOCRIT 32.1 % (37.0-47.0); HEMOGLOBIN 10.4 g/dl (12.0-16.0); LYMPHOCYTES # 2.2 10^3/ul (0.8-2.9); LYMPHOCYTES % 35.5 % (15.0-51.0); MEAN CORPUSCULAR HGB CONC 32.4 g/dl (32.0-37.0); MEAN CORPUSCULAR VOLUME 86.3 fl (82.0-101.0); MEAN PLATELET VOLUME 9.4 fl (7.4-10.4); MONOCYTE # 0.6 10^3/ul (0.3-0.9); MONOCYTES % 10.3 % (0.0-11.0); NEUTROPHIL # 3.2 10^3/ul (1.6-7.5); NEUTROPHILS % 51.4 % (39.0-77.0); PLATELET COUNT 353 10^3/UL (140-415); RED BLOOD COUNT 3.72 10^6/ul (4.20-5.40); RED CELL DISTRIBUTION WIDTH 13.4 % (11.5-14.5); WHITE BLOOD COUNT 6.2 10^3/ul (4.8-10.8)
[2016-08-03 07:48] LABS: ALBUMIN 3.9 g/dl (3.3-4.9); ALBUMIN/GLOBULIN RATIO 1.62; BILIRUBIN,INDIRECT 0.2 mg/dl (0-1.1); BILIRUBIN,TOTAL 0.2 mg/dl (0.2-1.3); CALCIUM 8.8 mg/dl (8.4-10.2); CREATININE 0.84 mg/dl (0.44-1.00); POTASSIUM 3.6 mmol/L (3.5-5.1); TOTAL PROTEIN 6.3 g/dl (6.1-8.1)
[2016-08-03 08:00] VITALS: BP 125/58; PULSE 58; RESP 18
[2016-08-03] MEDS: NEBIVOLOL 5 MG TAB PO SCH ×2 (08:25→21:04)
[2016-08-03] MEDS: NORTRIPTYLINE 25 MG CAP PO SCH ×3 (08:25→21:04)
[2016-08-03] MEDS: ESCITALOPRAM 10 MG TAB PO SCH (08:25)
[2016-08-03] MEDS: LEVOFLOXACIN 500MG/D5W (PMX) 100 ML IVPB SCH (15:43)
--- NOTE | 2016-08-03 17:10 | PN ---
Date/Time of Note Date/Time of Note DATE: 08/03/16 TIME: 17:06 Assessment/Plan VTE Prophylaxis VTE Prophylaxis Intervention: other Lines/Catheters IV Catheter Type (from [facility]): Peripheral IV Urinary Cath still in place: No Assessment/Plan Chief Complaint/Hosp Course 1) Intractable nausea and vomiting. This appears to be exacerbation of the patient's cyclic vomiting syndrome; however, there are some new features that were not present on her previous admissions, including elevated WBC and elevated total protein, globulin and albumin. I will check her blood and urine culture for possible sources of infection and in the event that she has an occult urinary tract infection causing the current episode of nausea, vomiting will go ahead and start her on an antibiotic to control symptoms. I will also do a brief screening for autoimmune disease that might cause abdominal pain, nausea and vomiting, but I believe that this has been looked at in the past. For treatment will resume her Nortriptyline 25 mg p.o. t.i.d. with meals since this controls her abdominal pain. Will also resume the Elavil, which was helping with her sleep and cyclic vomiting syndrome. The patient also will be started back on pantoprazole 40 mg IV b.i.d. for her known gastritis which is mostly caused by the chronic vomiting. I will resume 2 other medications as needed for her nausea, vomiting, and anxiety. The Tigan appears to be one of the medications she could tolerate that may help control her nausea and the Xanax appears to be 1 medication that she could tolerate for her anxiety, which may be triggering the cyclic vomiting syndrome or intestinal migraine that she is having. For this purpose, we will also try patient on a Lexapro 10 mg daily for some long-term control of stress and anxiety. 2. Hypertension. - BP ok Problems: Subjective 24 Hr Interval Summary Free Text/Dictation Patient is feeling better, denies any further nausea or vomiting Exam/Review of Systems Vital Signs Vitals Vital Signs Date Time Temp Pulse Resp B/P Pulse Ox O2 Delivery O2 Flow Rate FiO2 08/03/16 08:00 98.2 58 18 125/58 98 Room Air Intake and Output 08/02/16 08/02/16 08/03/16 15:00 23:00 07:00 Intake Total 550 ml 440 ml 775 ml Balance 550 ml 440 ml 775 ml Exam Constitutional: well developed Head: atraumatic, normocephalic Neck: supple Respiratory: clear to auscultation Cardiovascular: regular rate and rhythm Gastrointestinal: non-tender, soft Extremities: normal pulses Results Result Diagram: 08/03/16 0614 08/03/16 0614 Results 24 hrs Laboratory Tests Test 08/03/16 06:14 White Blood Count 6.2 # Red Blood Count 3.72 L Hemoglobin 10.4 L Hematocrit 32.1 L Mean Corpuscular Volume 86.3 Mean Corpuscular Hemoglobin 28.0 L Mean Corpuscular Hemoglobin Concent 32.4 Red Cell Distribution Width 13.4 Platelet Count 353 # Mean Platelet Volume 9.4 Neutrophils % 51.4 Lymphocytes % 35.5 Monocytes % 10.3 Eosinophils % 1.3 Basophils % 1.3 Nucleated Red Blood Cells % 0.0 Neutrophils # 3.2 Lymphocytes # 2.2 Monocytes # 0.6 Eosinophils # 0.1 Basophils # 0.1 Nucleated Red Blood Cells # 0.0 Erythrocyte Sedimentation Rate 7 Sodium Level 136 Potassium Level 3.6 Chloride Level 108 Carbon Dioxide Level 22 Anion Gap 10 # Blood Urea Nitrogen 16 Creatinine 0.84 Glucose Level 80 Calcium Level 8.8 Total Bilirubin 0.2 Direct Bilirubin 0.00 Indirect Bilirubin 0.2 Aspartate Amino Transf (AST/SGOT) 18 Alanine Aminotransferase (ALT/SGPT) 29 Alkaline Phosphatase 45 Total Protein 6.3 # Albumin 3.9 # Globulin 2.40 Albumin/Globulin Ratio 1.62 Medications Medications Current Medications Sodium Chloride (NS) 1,000 ml @ 75 mls/hr [id number] IV Last administered on 08/03 15:42; Admin Dose 75 MLS/HR; Start 08/01/16 at 23:00 Ondansetron HCl (Zofran Inj) 4 mg Q4H PRN IV NAUSEA AND/OR VOMITING Last administered on 08/02/16 15:00; Admin Dose 4 MG; Start 08/01/16 at 23:00 Ketorolac Tromethamine (Toradol) 15 mg Q6H PRN IV PAIN Last administered on 15:00; Admin Dose 15 MG; Start 08/01/16 at 23:00; Stop 08/04/16 at 22:59 Miscellaneous Medication (Bystolic) 5 mg BID PO Last administered on 08/02/16 21:09; Admin Dose 5 MG; Start 08/02/16 at 09:00 Trimethobenzamide HCl (Tigan) 200 mg Q6H PRN IM NAUSEA AND/OR VOMITING; Start 08/02/16 at 15:30 Nortriptyline HCl (Aventyl) 25 mg TID PO Last administered on 08/03/16 12:18; Admin Dose 25 MG; Start 08/02/16 at 21:00 Amitriptyline HCl (Elavil) 50 mg HS PO Last administered on 08/02/16 21:09; Admin Dose 50 MG; Start 08/02/16 at 21:00 Escitalopram Oxalate (Lexapro) 10 mg DAILY PO Last administered on 08/03/16 08 :25; Admin Dose 10 MG; Start 08/03/16 at 09:00 Alprazolam 1 mg 1 mg Q12H PRN PO ANXIETY; Start 08/02/16 at 15:30 Levofloxacin/ Dextrose (Levaquin 500mg/ D5W 100 ml (Pmx)) 100 ml @ 100 mls/hr Q24H IVPB Last administered on 08/03/16 15:43; Admin Dose 100 MLS/HR; Start at 16:00 Pantoprazole (Protonix Iv) 40 mg BID@06,18 IV Last administered on 08/03/16 05 :52; Admin Dose 40 MG; Start 08/02/16 at 18:00 CHELSIE MILLER Aug 03, 2016 17:09
[2016-08-03 19:48] VITALS: BP 126/74; PULSE 71; RESP 18
[2016-08-03] MEDS: AMITRIPTYLINE 50 MG TAB PO SCH (21:04)
[2016-08-04] MEDS: SOD CHLORIDE 0.9% 1,000 ML IV SCH ×4 (04:09→19:58)
[2016-08-04] MEDS: PANTOPRAZOLE 40 MG INJ IV SCH ×2 (05:27→18:37)
[2016-08-04 07:15] VITALS: BP 130/71; RESP 18
[2016-08-04] MEDS: ESCITALOPRAM 10 MG TAB PO SCH (09:28)
[2016-08-04] MEDS: NORTRIPTYLINE 25 MG CAP PO SCH ×3 (09:28→21:10)
[2016-08-04] MEDS: NEBIVOLOL 5 MG TAB PO SCH ×2 (09:28→21:10)
[2016-08-04 09:30] VITALS: BP 135/86; PULSE 68
[2016-08-04] MEDS: ONDANSETRON 4 MG INJ IV PRN ×2 (10:16→21:09)
[2016-08-04] MEDS: KETOROLAC 15 MG INJ IV PRN ×2 (10:16→18:06)
--- NOTE | 2016-08-04 11:42 | PN ---
Date/Time of Note Date/Time of Note DATE: 08/04/16 TIME: 11:41 Assessment/Plan VTE Prophylaxis VTE Prophylaxis Intervention: other Lines/Catheters IV [facility]ter Type (from [facility]): Peripheral IV Urinary Cath still in place: No Assessment/Plan Chief Complaint/Hosp Course 1) Intractable nausea and vomiting. This appears to be exacerbation of the patient's cyclic vomiting syndrome; however, there are some new features that were not present on her previous admissions, including elevated WBC and elevated total protein, globulin and albumin. I will check her blood and urine culture for possible sources of infection and in the event that she has an occult urinary tract infection causing the current episode of nausea, vomiting will go ahead and start her on an antibiotic to control symptoms. I will also do a brief screening for autoimmune disease that might cause abdominal pain, nausea and vomiting, but I believe that this has been looked at in the past. For treatment will resume her Nortriptyline 25 mg p.o. t.i.d. with meals since this controls her abdominal pain. Will also resume the Elavil, which was helping with her sleep and cyclic vomiting syndrome. The patient also will be started back on pantoprazole 40 mg IV b.i.d. for her known gastritis which is mostly caused by the chronic vomiting. I will resume 2 other medications as needed for her nausea, vomiting, and anxiety. The Tigan appears to be one of the medications she could tolerate that may help control her nausea and the Xanax appears to be 1 medication that she could tolerate for her anxiety, which may be triggering the cyclic vomiting syndrome or intestinal migraine that she is having. For this purpose, we will also try patient on a Lexapro 10 mg daily for some long-term control of stress and anxiety. 2. Hypertension. - BP ok Problems: Subjective 24 Hr Interval Summary Free Text/Dictation Patient because nauseous with vomiting again after breakfast Exam/Review of Systems Vital Signs Vitals Vital Signs Date Time Temp Pulse Resp B/P Pulse Ox O2 Delivery O2 Flow Rate FiO2 08/04/16 09:30 68 135/86 08/04/16 07:15 97.9 18 98 08/03/16 19:48 Room Air Intake and Output 08/03/16 08/03/16 08/04/16 15:00 23:00 07:00 Intake Total 1025 ml 1000 ml Balance 1025 ml 1000 ml Exam Constitutional: well developed Head: atraumatic, normocephalic Neck: supple Respiratory: clear to auscultation Cardiovascular: regular rate and rhythm Gastrointestinal: non-tender, soft Extremities: normal pulses Results Result Diagram: 08/03/1661308/03/16613 Medications Medications Current Medications Sodium Chloride (NS) 1,000 ml @ 75 mls/hr [id number] IV Last administered on 08/04 04:54; Admin Dose 75 MLS/HR; Start 08/01/16 at 23:00 Ondansetron HCl (Zofran Inj) 4 mg Q4H PRN IV NAUSEA AND/OR VOMITING Last administered on 08/04/16 10:16; Admin Dose 4 MG; Start 08/01/16 at 23:00 Ketorolac Tromethamine (Toradol) 15 mg Q6H PRN IV PAIN Last administered on 10:16; Admin Dose 15 MG; Start 08/01/16 at 23:00; Stop 08/04/16 at 22:59 Miscellaneous Medication (Bystolic) 5 mg BID PO Last administered on 08/04/16 09:28; Admin Dose 5 MG; Start 08/02/16 at 09:00 Trimethobenzamide HCl (Tigan) 200 mg Q6H PRN IM NAUSEA AND/OR VOMITING; Start 08/02/16 at 15:30 Nortriptyline HCl (Aventyl) 25 mg TID PO Last administered on 08/04/16 09:28; Admin Dose 25 MG; Start 08/02/16 at 21:00 Amitriptyline HCl (Elavil) 50 mg HS PO Last administered on 08/03/16 21:04; Admin Dose 50 MG; Start 08/02/16 at 21:00 Escitalopram Oxalate (Lexapro) 10 mg DAILY PO Last administered on 08/04/16 09 :28; Admin Dose 10 MG; Start 08/03/16 at 09:00 Alprazolam 1 mg 1 mg Q12H PRN PO ANXIETY; Start 08/02/16 at 15:30 Levofloxacin/ Dextrose (Levaquin 500mg/ D5W 100 ml (Pmx)) 100 ml @ 100 mls/hr Q24H IVPB Last administered on 08/03/16 15:43; Admin Dose 100 MLS/HR; Start at 16:00 Pantoprazole (Protonix Iv) 40 mg BID@,18 IV Last administered on 08/04/16t 05 :27; Admin Dose 40 MG; Start 08/02/16 at 18:00 CHELSIE MILLER Aug 04, 2016 11:41
[2016-08-04] MEDS: LORAZEPAM 2 MG INJ IV PRN ×2 (14:08→19:53)
[2016-08-04] MEDS: LEVOFLOXACIN 500MG/D5W (PMX) 100 ML IVPB SCH (16:07)
[2016-08-04] MEDS ORDERED: KETOROLAC 15 MG INJ IV STA (19:42)
[2016-08-04 20:00] VITALS: BP 174/107; RESP 18
[2016-08-04] MEDS ORDERED: morphine 2 MG INJ IV PRN (20:00)
[2016-08-04] MEDS: AMITRIPTYLINE 50 MG TAB PO SCH (21:09)
[2016-08-04 21:10] VITALS: BP 170/107; PULSE 91
[2016-08-04] MEDS ORDERED: KETOROLAC 15 MG INJ IV PRN (23:00)
[2016-08-05 00:05] VITALS: BP 161/101; PULSE 95
[2016-08-05] MEDS: LORAZEPAM 2 MG INJ IV PRN (00:13)
[2016-08-05 01:20] VITALS: BP 156/98; PULSE 97
[2016-08-05 05:56] LABS: ADD SCAN DIFF NO
[2016-08-05 06:09] LABS: BASOPHILS % 0.2 % (0.0-2.0); HEMATOCRIT 37.9 % (37.0-47.0); HEMOGLOBIN 12.7 g/dl (12.0-16.0); LYMPHOCYTES # 1.6 10^3/ul (0.8-2.9); LYMPHOCYTES % 16.9 % (15.0-51.0); MEAN CORPUSCULAR HEMOGLOBIN 27.9 pg (29.0-33.0); MEAN CORPUSCULAR HGB CONC 33.5 g/dl (32.0-37.0); MEAN CORPUSCULAR VOLUME 83.1 fl (82.0-101.0); MEAN PLATELET VOLUME 9.2 fl (7.4-10.4); MONOCYTE # 0.7 10^3/ul (0.3-0.9); MONOCYTES % 7.5 % (0.0-11.0); NEUTROPHIL # 7.1 10^3/ul (1.6-7.5); PLATELET COUNT 464 10^3/UL (140-415); RED BLOOD COUNT 4.56 10^6/ul (4.20-5.40); RED CELL DISTRIBUTION WIDTH 13.1 % (11.5-14.5); WHITE BLOOD COUNT 9.4 10^3/ul (4.8-10.8)
[2016-08-05 06:39] LABS: CALCIUM 9.4 mg/dl (8.4-10.2); CREATININE 0.74 mg/dl (0.44-1.00); POTASSIUM 3.5 mmol/L (3.5-5.1)
[2016-08-05] MEDS: PANTOPRAZOLE 40 MG INJ IV SCH ×2 (06:41→17:25)
[2016-08-05] MEDS: SOD CHLORIDE 0.9% 1,000 ML IV SCH ×2 (07:00→14:06)
[2016-08-05 08:30] VITALS: BP 110/65; RESP 18
[2016-08-05] MEDS: ESCITALOPRAM 10 MG TAB PO SCH (09:32)
[2016-08-05] MEDS: NORTRIPTYLINE 25 MG CAP PO SCH ×3 (09:33→20:27)
[2016-08-05] MEDS: NEBIVOLOL 5 MG TAB PO SCH ×2 (09:33→20:27)
[2016-08-05 13:41] LABS: ANA SCREEN NEGATIVE (NEGATIVE)
[2016-08-05] MEDS: LEVOFLOXACIN 500MG/D5W (PMX) 100 ML IVPB SCH (16:37)
[2016-08-05] MEDS ORDERED: ALPRAZOLAM 1 MG TAB PO PRN (19:30)
[2016-08-05 20:00] VITALS: BP 119/57; RESP 16
[2016-08-05] MEDS: AMITRIPTYLINE 50 MG TAB PO SCH (20:27)
--- NOTE | 2016-08-05 23:59 | PN ---
Date/Time of Note Date/Time of Note DATE: 08/05/16 TIME: 23:57 Assessment/Plan VTE Prophylaxis VTE Prophylaxis Intervention: ambulation Lines/Catheters IV Catheter Type (from [facility]rs[facility]): Peripheral IV Urinary Cath still in place: No Subjective 24 Hr Interval Summary Free Text/Dictation no nausea or a sheng pain this morning but the head the nausea and a sheng pain last night. Was able to tolerate to have some of the soft diet today Exam/Review of Systems Vital Signs Vitals Vital Signs Date Time Temp Pulse Resp B/P Pulse Ox O2 Delivery O2 Flow Rate FiO2 08/05/16 20:00 98.1 79 16 119/57 97 08/03/16 19:48 Room Air Intake and Output 08/04/16 08/04/16 08/05/16 15:00 23:00 07:00 Intake Total 1320 ml 795 ml Output Total 600 ml Balance 1320 ml 195 ml Exam Constitutional: alert, oriented Psych: anxiety, no complaints Eyes: nl conjunctiva, nl lids Respiratory: clear to auscultation, normal air movement Gastrointestinal: nl liver, spleen, non-tender, soft Genitourinary - Female: nl adnexae Extremities: normal pulses Results Result Diagram: 08/05/16 0509 08/05/16 0509 Results 24 hrs Laboratory Tests Test 08/05/16 05:09 White Blood Count 9.4 # Red Blood Count 4.56 # Hemoglobin 12.7 # Hematocrit 37.9 Mean Corpuscular Volume 83.1 Mean Corpuscular Hemoglobin 27.9 L Mean Corpuscular Hemoglobin Concent 33.5 Red Cell Distribution Width 13.1 Platelet Count 464 #H Mean Platelet Volume 9.2 Neutrophils % 75.0 Lymphocytes % 16.9 Monocytes % 7.5 Eosinophils % 0.0 Basophils % 0.2 Nucleated Red Blood Cells % 0.0 Neutrophils # 7.1 Lymphocytes # 1.6 Monocytes # 0.7 Eosinophils # 0.0 Basophils # 0.0 Nucleated Red Blood Cells # 0.0 Sodium Level 133 L Potassium Level 3.5 Chloride Level 101 Carbon Dioxide Level 21 Anion Gap 15 Blood Urea Nitrogen 9 Creatinine 0.74 Glucose Level 95 Calcium Level 9.4 Medications Medications Current Medications Sodium Chloride (NS) 1,000 ml @ 75 mls/hr [id number] IV Last administered on 08/05t 14:06; Admin Dose 75 MLS/HR; Start 08/01/16 at 23:00 Ondansetron HCl (Zofran Inj) 4 mg Q4H PRN IV NAUSEA AND/OR VOMITING Last administered on 08/04/16 21:09; Admin Dose 4 MG; Start 08/01/16 at 23:00 Miscellaneous Medication (Bystolic) 5 mg BID PO Last administered on 08/05/16 20:27; Admin Dose 5 MG; Start 08/02/16 at 09:00 Trimethobenzamide HCl (Tigan) 200 mg Q6H PRN IM NAUSEA AND/OR VOMITING Last administered on 08/04/16 16:31; Admin Dose 200 MG; Start 08/02/16 at 15:30 Nortriptyline HCl (Aventyl) 25 mg TID PO Last administered on 08/05/16 20:27; Admin Dose 25 MG; Start 08/02/16 at 21:00 Amitriptyline HCl (Elavil) 50 mg HS PO Last administered on 08/05/16 20:27; Admin Dose 50 MG; Start 08/02/16 at 21:00 Escitalopram Oxalate 10 mg 10 mg DAILY PO Last administered on 08/05/16 09:32 ; Admin Dose 10 MG; Start 08/03/16 at 09:00 Levofloxacin/ Dextrose (Levaquin 500mg/ D5W 100 ml (Pmx)) 100 ml @ 100 mls/hr Q24H IVPB Last administered on 08/05/16 16:37; Admin Dose 100 MLS/HR; Start at 16:00 Pantoprazole (Protonix Iv) 40 mg BID@06,18 IV Last administered on 08/05/16 17 :25; Admin Dose 40 MG; Start 08/02/16 at 18:00 Lorazepam (Ativan) 1 mg Q4H PRN IV NAUSEA Last administered on 08/05/16 00:13 ; Admin Dose 1 MG; Start 08/04/16 at 14:00 Ketorolac Tromethamine (Toradol) 30 mg Q6H PRN IV PAIN Last administered on 00:19; Admin Dose 30 MG; Start 08/04/16 at 23:00; Stop 08/07/16 at 22:59 Morphine Sulfate (morphine) 2 mg Q4H PRN IV SEVERE PAIN LEVEL 7-10 Last administered on 08/04/16 22:26; Admin Dose 2 MG; Start 08/04/16 at 20:00 Hydralazine HCl (Apresoline) 25 mg Q6H PRN PO ELEVATED SYSTOLIC BP Last administered on 08/05/16 00:13; Admin Dose 25 MG; Start 08/04/16 at 20:00 Alprazolam (Xanax) 2 mg Q12H PRN PO ANXIETY; Start 08/05/16 at 19:30 DOUG HAMMONDS MD Aug 05, 2016 23:59
[2016-08-06] MEDS: SOD CHLORIDE 0.9% 1,000 ML IV SCH ×3 (01:36→14:57)
[2016-08-06] MEDS: PANTOPRAZOLE 40 MG INJ IV SCH ×2 (05:30→18:03)
[2016-08-06 07:11] VITALS: BP 130/74; RESP 20
[2016-08-06] MEDS: NEBIVOLOL 5 MG TAB PO SCH (08:49)
[2016-08-06] MEDS: NORTRIPTYLINE 25 MG CAP PO SCH ×2 (08:49→13:21)
[2016-08-06] MEDS: ESCITALOPRAM 10 MG TAB PO SCH (08:49)
[2016-08-06] MEDS: LEVOFLOXACIN 500MG/D5W (PMX) 100 ML IVPB SCH (16:16)
[2016-08-06] MEDS ORDERED: METR-111 PO (18:35)
[2016-08-06] MEDS ORDERED: TRIM300C16 PO (18:35)
[2016-08-06] MEDS ORDERED: ESCI10TA48 PO (18:35)
[2016-08-06] MEDS ORDERED: NORT25CA PO (18:35)
--- NOTE | 2016-08-06 18:44 | QN ---
Documentation Comment Aan Raymond was hospitalized from 08/01/2016 to 08/06/2016 and will need to stay off work until August 29. May return to work on August 29 if no further events happen from now until then. DOUG HAMMONDS MD Aug 06, 2016 18:44
--- NOTE | 2016-08-06 23:54 | DS ---
Date/Time of Note Date/Time of Note DATE: 08/06/16 TIME: 23:19 Discharge Summary Admission/Discharge Info Admit Date/Time Aug 03, 2016 at 15:31 Discharge Date/Time Aug 06, 2016 at 19:45 Discharge Diagnosis cyclical vomiting syndrome Patient Condition: Good Hospital Course 1) Intractable nausea and vomiting. This appears to be exacerbation of the patient's cyclic vomiting syndrome; however, there are some new features that were not present on her previous admissions, including elevated WBC and elevated total protein, globulin and albumin. I checked her blood and urine culture for possible sources of infection and found that she has an occult urinary tract infection possibly causing the current episode of nausea, vomiting. She was started on an antibiotic Levaquin which was later changed to Flagyl when urine culture grew Gardnerella. Her leukocytosis came down to normal after two days on antibiotics. I increased the Nortriptyline from 10mg to 25 mg p.o. t.i.d. with meals since this controls her abdominal pain. I also resumed the Elavil before bed which was helping with her sleep and cyclic vomiting syndrome. The patient also was started back on pantoprazole 40 mg b.i.d. for her known gastritis which is mostly caused by the chronic vomiting. I also started the patient on Lexapro 10 mg PO Q day. Other medications that were used to control her nausea, vomiting , pain and anxiety on an as needed basis included Zofran, Tigan, Toradol, and Ativan. Her symptoms were controlled on a regiment of Lexapro in the morning, Elavil at night and Pamelor before each meal so that she had no nausea or abdominal pain two days prior to discharge even with eating soft diet on the last day. - BP ok Home Meds Active Scripts Metronidazole (Flagyl) 250 Mg Tab, 250 MG PO TID for 7 Days, TAB Prov:SHERYL HAMMONDS MD 08/06/16 Trimethobenzamide Hcl* (Tigan*) 300 Mg Capsule, 300 MG PO QID Y for NAUSEA for 10 Days, #30 CAP Prov:SHERYL HAMMONDS MD 08/06/16 Nortriptyline Hcl* (Nortriptyline Hcl*) 25 Mg Capsule, 25 MG PO TID for 30 Days , #90 CAP Prov:SHERYL HAMMONDS MD 08/06/16 Escitalopram Oxalate* (Escitalopram Oxalate*) 10 Mg Tablet, 10 MG PO DAILY for 30 Days, #30 TAB 3 Refills Prov:SHERYL HAMMONDS MD 08/06/16 Ondansetron Hcl* (Zofran*) 4 Mg Tablet, 4 MG PO Q8H Y for NAUSEA AND/OR VOMITING , #30 TAB Prov:MIAN ROACH MD 08/01/16 Pantoprazole Sodium (Protonix) 40 Mg , 40 MG PO BID for 30 Days, #60 Prov:MONTRELL MOLINA MD- 06/15/16 Amitriptyline Hcl* (Amitriptyline Hcl*) 50 Mg Tablet, 50 MG PO HS for 30 Days, # 30 TAB Prov:MONTRELL MOLINA MD- 06/15/16 Labetalol Hcl* (Labetalol Hcl*) 200 Mg Tablet, 200 MG PO TID for 30 Days, #90 TAB Prov:MONTRELL MOLINA MD- 06/15/16 Discontinued Scripts Polyethylene Glycol* (Miralax*) 17 Gm Powd.pack, 17 GM PO DAILY, #7 Prov:JEANNA MENARD MD 06/21/16 Ondansetron Hcl* (Zofran*) 4 Mg Tablet, 4 MG PO Q6H Y for NAUSEA AND OR VOMITING for 10 Days, #30 TAB Prov:MONTRELL MOLINA MD- 06/15/16 Follow-up Plan follow up with Dr. Sheryl Law within 1 to 2 weeks after discharge Primary Care Provider Sheryl Hammonds MD Time spent on discharge: > 30 minutes SHERYL HAMMONDS MD Aug 06, 2016 23:33
== END 2016-08-06 19:45 | disposition home or self-care (01) | DRG 103 ==
LOC: E/R 12:03 → INTOOBSV 17:42 → MS2 17:42 → OBSVTOIN 08-03 15:31
PROVIDERS: ADMIT Internal Medicine; ATTEND Internal Medicine
DX: G43.A1 Cyclical vomiting, in migraine, intractable (principal); N39.0 Urinary tract infection, site not specified; I10 Essential (primary) hypertension; F41.9 Anxiety disorder, unspecified; F43.9 Reaction to severe stress, unspecified; K29.70 Gastritis, unspecified, without bleeding; B96.89 Other specified bacterial agents as the cause of diseases classified elsewhere
CPT/HCPCS: 36415; 71020; 80048; 80053; 81001; 82150; 83690; 85025; 85651; 86038; 87040; 87086; 96374; 96375; 96376; C9113; G0378; J1885; J1956; J2060; J2270; J2405; J3250; J7030

== ENCOUNTER 2016-08-11 23:49 | Inpatient (IN) | payer BC ==
[~2016-08-11] VITALS: Ht 161.3 cm; Wt 48.0 kg
[~2016-08-11 23:49] MED LIST changes: +ESCI10TA48 PO; +METR-111 PO; +NORT25CA PO; -POLY17PO6 PO; +TRIM300C16 PO
[2016-08-12] VITALS (10 sets, daily range): BP systolic 120–170; BP diastolic 72–99; PULSE 105–116; RESP 19–22; TEMP 98.3; Ht 161.3 cm; Wt 48.0 kg
[2016-08-12] MEDS ORDERED: SOD CHLORIDE 0.9% 1,000 ML IV STA (00:57)
[2016-08-12] MEDS ORDERED: morphine 4 MG/ML VIAL IV STA (00:57)
[2016-08-12] MEDS ORDERED: ONDANSETRON 4 MG INJ IV STA ×2 (00:57→01:21)
[2016-08-12] MEDS ORDERED: SOD CHLORIDE 0.9% 1,000 ML IV ONE ×2 (01:30→05:30)
[2016-08-12] MEDS ORDERED: TRIMETHOBENZAMIDE 100 MG/ML VIAL IM ONE (01:30)
[2016-08-12] MEDS ORDERED: LORAZEPAM 2 MG INJ IV ONE ×2 (01:30→05:30)
[2016-08-12 03:13] LABS: BASOPHIL # 0.1 10^3/ul (0.0-0.1); BASOPHILS % 0.7 % (0.0-2.0); EOSINOPHILS % 0.2 % (0.0-7.0); HEMATOCRIT 37.9 % (37.0-47.0); HEMOGLOBIN 12.6 g/dl (12.0-16.0); LYMPHOCYTES # 1.2 10^3/ul (0.8-2.9); LYMPHOCYTES % 8.3 % (15.0-51.0); MEAN CORPUSCULAR HEMOGLOBIN 28.4 pg (29.0-33.0); MEAN CORPUSCULAR HGB CONC 33.2 g/dl (32.0-37.0); MEAN CORPUSCULAR VOLUME 85.4 fl (82.0-101.0); MEAN PLATELET VOLUME 8.9 fl (7.4-10.4); MONOCYTE # 0.3 10^3/ul (0.3-0.9); NEUTROPHIL # 12.8 10^3/ul (1.6-7.5); NEUTROPHILS % 88.4 % (39.0-77.0); PLATELET COUNT 574 10^3/UL (140-415); RED BLOOD COUNT 4.44 10^6/ul (4.20-5.40); RED CELL DISTRIBUTION WIDTH 13.6 % (11.5-14.5); WHITE BLOOD COUNT 14.5 10^3/ul (4.8-10.8)
[2016-08-12 03:25] LABS: ADD SCAN DIFF NO
[2016-08-12 03:31] LABS: ALBUMIN 5.4 g/dl (3.3-4.9); ALBUMIN/GLOBULIN RATIO 1.5; BILIRUBIN,INDIRECT 0.3 mg/dl (0-1.1); BILIRUBIN,TOTAL 0.3 mg/dl (0.2-1.3); CREATININE 0.75 mg/dl (0.44-1.00); POTASSIUM 3.5 mmol/L (3.5-5.1)
[2016-08-12 05:02] LABS: ADD UMIC NO; UR ASCORBIC ACID NEGATIVE (NEGATIVE); UR BACTERIA FEW /HPF (NONE SEEN); UR BILIRUBIN (Dip) NEGATIVE (NEGATIVE); UR BLOOD (Dip) NEGATIVE (NEGATIVE); UR CLARITY SLIGHTLY CLOUDY (CLEAR); UR COLOR STRAW (YELLOW); UR GLUCOSE (Dip) 3+ mg/dL (NEGATIVE); UR KETONES (Dip) 1+ mg/dL (NEGATIVE); UR LEUKOCYTE ESTERASE (Dip) NEGATIVE Leu/ul (NEGATIVE); UR NITRITE (Dip) NEGATIVE (NEGATIVE); UR RBC 0 /HPF (0-5); UR SPECIFIC GRAVITY (Dip) 1.008 (1.003-1.030); UR TOTAL PROTEIN (Dip) NEGATIVE (NEGATIVE); UR UROBILINOGEN (Dip) NEGATIVE (NEGATIVE)
[2016-08-12] MEDS ORDERED: ACETAMINOPHEN 325 MG TAB PO PRN (05:30)
[2016-08-12] MEDS ORDERED: ONDANSETRON 4 MG INJ IV PRN (05:30)
--- NOTE | 2016-08-12 06:25 | ERA ---
ER Documentation Chief Complaint Date/Time DATE: 08/12/16 TIME: 06:22 Chief Complaint ABDOMINAL PAIN, NAUSEA, VOMITING BEGAN 5 HOURS AGO HPI 31-year-old female with history of cyclic vomiting syndrome preventing for vomiting and 5 hours ago. She states that she has vomited at least 15 times and no longer has anything to vomit but continues to dry heave. Also has mid upper central abdominal described as a crampy pain. Denies any fever and chills. ROS All systems reviewed and are negative except as per history of present illness. Medications Home Meds Active Scripts Metronidazole (Flagyl) 250 Mg Tab, 250 MG PO TID for 7 Days, TAB Prov:DOUG HAMMONDS MD 08/06/16 Trimethobenzamide Hcl* (Tigan*) 300 Mg Capsule, 300 MG PO QID Y for NAUSEA for 10 Days, #30 CAP Prov:DOUG HAMMONDS MD 08/06/16 Nortriptyline Hcl* (Nortriptyline Hcl*) 25 Mg Capsule, 25 MG PO TID for 30 Days , #90 CAP Prov:DOUG HAMOMNDS MD 08/06/16 Escitalopram Oxalate* (Escitalopram Oxalate*) 10 Mg Tablet, 10 MG PO DAILY for 30 Days, #30 TAB 3 Refills Prov:DOUG HAMMONDS MD 08/06/16 Ondansetron Hcl* (Zofran*) 4 Mg Tablet, 4 MG PO Q8H Y for NAUSEA AND/OR VOMITING , #30 TAB Prov:MIAN ROACH MD 08/01/16 Pantoprazole Sodium (Protonix) 40 Mg GranpktKathydr, 40 MG PO BID for 30 Days, #60 Prov:MONTRELL MOLINA 06/15/16 Amitriptyline Hcl* (Amitriptyline Hcl*) 50 Mg Tablet, 50 MG PO HS for 30 Days, # 30 TAB Prov:MONTRELL MOLINA 06/15/16 Labetalol Hcl* (Labetalol Hcl*) 200 Mg Tablet, 200 MG PO TID for 30 Days, #90 TAB Prov:MONTRELL MOLINA 06/15/16 Allergies Allergies: Coded Allergies: metoclopramide (Verified Allergy, Mild, 08/01/16) Penicillins (Verified Allergy, Unknown, 08/01/16) PMhx/Soc History of Surgery: Yes () Anesthesia Reaction: No Hx Neurological Disorder: No Hx Respiratory Disorders: No Hx Cardiac Disorders: Yes (GESTATIONAL HYPERTENSION) Hx Psychiatric Problems: No Hx Miscellaneous Medical Probl: Yes (CYCLIC VOMITTING SYNDROME) Hx Alcohol Use: Yes (SOCIALLY BEFORE) Hx Substance Use: No Hx Tobacco Use: No Smoking Status: Never smoker Physical Exam Vitals Vital Signs Date Time Temp Pulse Resp B/P Pulse Ox O2 Delivery O2 Flow Rate FiO2 08/12/16 05:00 106 18 163/107 97 Room Air 08/12/16 04:33 109 16 162/114 98 Room Air 08/12/16 00:01 97.3 138 20 183/114 96 Physical Exam Const: [] Moderate distress, appears very uncomfortable Head: Atraumatic Eyes: Normal Conjunctiva ENT: Normal External Ears, Nose and Mouth. Neck: Full range of motion..~ No meningismus. Resp: Clear to auscultation bilaterally Cardio: Regular tachycardia, no murmurs Abd: Soft, mild to moderate mid abdominal tenderness without guarding or rebound non distended. Normal bowel sounds Skin: No petechiae or rashes Back: No midline or flank tenderness Ext: No cyanosis, or edema Neur: Awake and alert and oriented 3, no focal deficit Psych: Normal Mood and Affect Result Diagram: 08/12/16 0240 08/12/16 0240 Results 24 hrs Laboratory Tests Test 08/12/16 02:40 White Blood Count 14.510^3/ul Red Blood Count 4.4410^6/ul Hemoglobin 12.6g/dl Hematocrit 37.9% Mean Corpuscular Volume 85.4fl Mean Corpuscular Hemoglobin 28.4pg Mean Corpuscular Hemoglobin Concent 33.2g/dl Red Cell Distribution Width 13.6% Platelet Count 72848^3/UL Mean Platelet Volume 8.9fl Neutrophils % 88.4% Lymphocytes % 8.3% Monocytes % 2.0% Eosinophils % 0.2% Basophils % 0.7% Nucleated Red Blood Cells % 0.0/100WBC Neutrophils # 12.810^3/ul Lymphocytes # 1.210^3/ul Monocytes # 0.310^3/ul Eosinophils # 0.010^3/ul Basophils # 0.110^3/ul Nucleated Red Blood Cells # 0.010^3/ul Urine Color STRAW Urine Clarity SLIGHTLY CLOUDY Urine pH 9.0 Urine Specific Grant 1.008 Urine Ketones 1+mg/dL Urine Nitrite NEGATIVEmg/dL Urine Bilirubin NEGATIVEmg/dL Urine Urobilinogen NEGATIVEmg/dL Urine Leukocyte Esterase NEGATIVELeu/ul Urine Microscopic RBC 0/HPF Urine Microscopic WBC 2/HPF Urine Bacteria FEW/HPF Urine Hemoglobin NEGATIVEmg/dL Urine Glucose 3+mg/dL Urine Total Protein NEGATIVEmg/dl Sodium Level 135mmol/L Potassium Level 3.5mmol/L Chloride Level 97mmol/L Carbon Dioxide Level 23mmol/L Anion Gap 19 Blood Urea Nitrogen 9mg/dl Creatinine 0.75mg/dl Glucose Level 224mg/dl Calcium Level 10.0mg/dl Total Bilirubin 0.3mg/dl Direct Bilirubin 0.00mg/dl Indirect Bilirubin 0.3mg/dl Aspartate Amino Transf (AST/SGOT) 28IU/L Alanine Aminotransferase (ALT/SGPT) 31IU/L Alkaline Phosphatase 75IU/L Total Protein 9.0g/dl Albumin 5.4g/dl Globulin 3.60g/dl Albumin/Globulin Ratio 1.50 Lipase 124U/L Current Medications Medications (Trade) Dose Ordered Sig/Laith Route PRN Reason Start Time Stop Time Status Last Admin Dose Admin Sodium Chloride (NS) 1,000 ml @ 1,000 mls/hr Q1H STAT IV 08/12/16 00:57 08/12/16 01:56 DC 08/12/16 03:03 Morphine Sulfate (morphine) 4 mg ONCE STAT IV 08/12/16 00:57 08/12/16 00:59 DC 08/12/16 02:33 Ondansetron HCl (Zofran Inj) 4 mg ONCE STAT IV 08/12/16 00:57 08/12/16 00:59 DC 08/12/16 02:30 Ondansetron HCl (Zofran Inj) 4 mg ONCE STAT IV 08/12/16 01:21 08/12/16 01:23 DC 08/12/16 04:20 Trimethobenzamide HCl (Tigan) 200 mg ONCE ONCE IM 08/12/16 01:30 08/12/16 01:31 DC 08/12/16 04:28 Lorazepam 1 mg 1 mg ONCE ONCE IV 08/12/16 01:30 08/12/16 01:31 DC 08/12/16 02:33 Sodium Chloride (NS) 1,000 ml @ 1,000 mls/hr Q1H ONCE IV 08/12/16 01:30 08/12/16 02:29 DC 08/12/16 04:16 Lorazepam 2 mg 2 mg ONCE ONCE IV 08/12/16 05:30 08/12/16 05:31 DC 08/12/16 05:32 Sodium Chloride (NS) 1,000 ml @ 1,000 mls/hr Q1H ONCE IV 08/12/16 05:30 08/12/16 06:29 Ondansetron HCl (Zofran Inj) 4 mg BRIDGE ORDER PRN IV NAUSEA AND/OR VOMITING 08/12/16 05:30 08/13/16 05:29 Acetaminophen (Tylenol Tab) 650 mg ER BRIDGE PRN PO MILD PAIN/FEVER 08/12/16 05:30 08/13/16 05:29 Procedures/MDM Acute exacerbation of cyclic vomiting syndrome. Patient was given multiple doses of nausea medications including 2 doses of Zofran, dose of Ativan, dose of Tigan. Is also given 4 mg of morphine. This resolved her abdominal pain but she stated that she still felt the same nausea and was still dry heaving. She was then given 2 more milligrams of Ativan. She was administered 2 L of normal saline which did help with her heart rate was still mildly tachycardic. She has no elevated white blood cell count or any other signs of any source of infection. Elevated white count is likely secondary to the vomiting. I spoke with Dr. Escobar will be admitting the patient to telemetry. She did have hypertension emergency room but was not high enough to be acutely lowered with vasoactive medications Departure Diagnosis: Primary Impression: Intractable vomiting Additional Impressions: Acute abdominal pain Hyperglycemia Condition: Serious SABRINA MORGAN DO Aug 12, 2016 06:25
[2016-08-12] MEDS ORDERED: ASPIRIN 81 MG TAB PO ONE (15:00)
[2016-08-12] MEDS ORDERED: SOD CHLORIDE 0.9% 500 ML IV ONE (15:00)
[2016-08-12] MEDS: ESCITALOPRAM 10 MG TAB PO SCH (15:37)
[2016-08-12] MEDS: SOD CHLORIDE 0.9% 1,000 ML IV SCH ×2 (15:38→23:39)
[2016-08-12] MEDS: CIPROFLOXACIN 500 MG TAB PO SCH (17:50)
[2016-08-12] MEDS: PANTOPRAZOLE (EC) 40 MG TAB PO SCH (17:50)
[2016-08-12] MEDS: NORTRIPTYLINE 25 MG CAP PO SCH (20:48)
[2016-08-12] MEDS: LABETALOL 200 MG TAB PO SCH (20:49)
[2016-08-12] MEDS ORDERED: AMITRIPTYLINE 50 MG TAB PO SCH (21:00)
[2016-08-13] VITALS (9 sets, daily range): BP systolic 96–125; BP diastolic 55–70; PULSE 68–90; RESP 18–19
--- NOTE | 2016-08-13 00:29 | HP ---
Date/Time of Note Date/Time of Note DATE: 08/13/16 TIME: 08:21 Assessment/Plan VTE Prophylaxis VTE Prophylaxis Intervention: ambulation Lines/Catheters IV Catheter Type (from Nrs): Peripheral IV Central line still needed: No Urinary Cath still in place: No Assessment/Plan Assessment/Plan 1. Gasteroenteritis with n/v, UTI 2. DM--poorly controlled 3. HTN 4. DEPRESSION 5. [place]/ DEHYDRATION ---ADMIT TO [facility] ---IVF ---ATBX ---ANTI NAUSEA ---ADVANCE DIET SLOWLY TO ADA 1200CAL ---ACCUCHECK, & START GLIPIZIDE 5MG HPI/ROS Admit Date/Time Admit Date/Time Aug 12, 2016 at 07:09 Hx of Present Illness no f/c/cp/sob/dysuria/bm change. no new meds/diet/travel/injury. a few HRSs cont n/v, feels weak, cannot eat/swallow/keep anything down, dizzy/ green/ scared, mid abd pain+ PMH/Family/Social Past Medical History HTN, DEPRESSION, DM, [place] Past Surgical History c/s Family History Significant Family History: no pertinent family hx Social History Alcohol Use: rarely Smoking Status: Never smoker Drug Use: none Exam/Review of Systems Vital Signs Vitals Vital Signs Date Time Temp Pulse Resp B/P Pulse Ox O2 Delivery O2 Flow Rate FiO2 08/12/16 23:50 98.0 99 20 143/76 99 08/12/16 07:50 Room Air Intake and Output 08/12/16 08/12/16 08/13/16 15:00 23:00 07:00 Intake Total 1000 ml Balance 1000 ml Exam Constitutional: alert, oriented, well developed Psych: anxiety Head: atraumatic, normocephalic ENMT: nl external ears & nose, nl lips & teeth, nl nasal mucosa & septum Neck: non-tender, supple Respiratory: clear to auscultation, normal air movement Cardiovascular: systolic murmur Gastrointestinal: tender Musculoskeletal: nl extremities to inspection Extremities: normal pulses Neurological: [employer] II-XII intact, nl mental status, nl speech, nl strength Skin: nl turgor, No rash or lesions Lymph: nl lymph nodes Labs Result Diagram: 08/12/16 02408/12/16 0240 Medications Medications Current Medications Sodium Chloride (NS) 1,000 ml @ 75 mls/hr [id number] IV Last administered on 23:39; Admin Dose 75 MLS/HR; Start 08/12/16 at 15:00 Ciprofloxacin (Cipro) 500 mg BID@,18 PO Last administered on 08/12/16 17:50; Admin Dose 500 MG; Start 08/12/16 at 18:00 Labetalol HCl (Normodyne) 200 mg TID PO Last administered on 08/12/16 20:49; Admin Dose 200 MG; Start 08/12/16 at 21:00 Amitriptyline HCl (Elavil) 50 mg HS PO Last administered on 08/12/16 20:48; Admin Dose 50 MG; Start 08/12/16 at 21:00 Pantoprazole (Protonix Tab) 40 mg BID@18 PO Last administered on 08/12/16 17 :50; Admin Dose 40 MG; Start 08/12/16 at 18:00 Escitalopram Oxalate (Lexapro) 10 mg DAILY PO Last administered on 08/12/16 15: 37; Admin Dose 10 MG; Start 08/12/16 at 15:00 Nortriptyline HCl (Aventyl) 25 mg TID PO Last administered on 08/12/16 20:48; Admin Dose 25 MG; Start 08/12/16 at 21:00 TAWANNA ROSS MD Aug 13, 2016 00:29
[2016-08-13] MEDS: SOD CHLORIDE 0.9% 1,000 ML IV SCH ×2 (04:20→13:08)
[2016-08-13] MEDS: PANTOPRAZOLE (EC) 40 MG TAB PO SCH ×2 (05:17→18:24)
[2016-08-13] MEDS: CIPROFLOXACIN 500 MG TAB PO SCH ×2 (05:17→18:24)
[2016-08-13 06:14] LABS: ADD SCAN DIFF NO
[2016-08-13 06:18] LABS: BASOPHIL # 0.1 10^3/ul (0.0-0.1); BASOPHILS % 0.8 % (0.0-2.0); EOSINOPHILS # 0.1 10^3/ul (0.0-0.5); EOSINOPHILS % 1.3 % (0.0-7.0); HEMATOCRIT 32.1 % (37.0-47.0); HEMOGLOBIN 10.4 g/dl (12.0-16.0); LYMPHOCYTES # 2.2 10^3/ul (0.8-2.9); LYMPHOCYTES % 26.2 % (15.0-51.0); MEAN CORPUSCULAR HEMOGLOBIN 28.7 pg (29.0-33.0); MEAN CORPUSCULAR HGB CONC 32.4 g/dl (32.0-37.0); MEAN CORPUSCULAR VOLUME 88.4 fl (82.0-101.0); MEAN PLATELET VOLUME 8.6 fl (7.4-10.4); MONOCYTE # 0.7 10^3/ul (0.3-0.9); MONOCYTES % 8.6 % (0.0-11.0); NEUTROPHIL # 5.3 10^3/ul (1.6-7.5); NEUTROPHILS % 62.9 % (39.0-77.0); PLATELET COUNT 436 10^3/UL (140-415); RED BLOOD COUNT 3.63 10^6/ul (4.20-5.40); RED CELL DISTRIBUTION WIDTH 13.8 % (11.5-14.5); WHITE BLOOD COUNT 8.4 10^3/ul (4.8-10.8)
[2016-08-13 07:01] LABS: ALBUMIN 3.7 g/dl (3.3-4.9); CALCIUM 8.9 mg/dl (8.4-10.2); CREATININE 0.73 mg/dl (0.44-1.00); MAGNESIUM 1.9 mg/dl (1.7-2.5); POTASSIUM 3.6 mmol/L (3.5-5.1)
[2016-08-13] MEDS ORDERED: glipiZIDE 5 MG TAB PO SCH (07:25)
[2016-08-13] MEDS: ACCU-CHEK XX SCH ×3 (07:34→17:36)
[2016-08-13] MEDS: LABETALOL 200 MG TAB PO SCH ×2 (09:00→13:00)
[2016-08-13] MEDS: ESCITALOPRAM 10 MG TAB PO SCH (09:48)
[2016-08-13] MEDS: NORTRIPTYLINE 25 MG CAP PO SCH ×2 (09:48→14:11)
[2016-08-13] MEDS ORDERED: CIPR500T4 PO ×2 (18:39→18:42)
--- NOTE | 2016-08-13 19:06 | DS ---
Date/Time of Note Date/Time of Note DATE: 08/13/16 TIME: 18:59 Discharge Summary Admission/Discharge Info Admit Date/Time Aug 12, 2016 at 07:09 Discharge Date/Time 08/13/2016 1900 Discharge Diagnosis 1.gasteroenteritis 2. uti 3. n/v 4. htn 5. dm 6. depression Patient Condition: Good Hx of Present Illness no f/c/cp/sob/dysuria/bm change. no new meds/diet/travel/injury. a few HRSs cont n/v, feels weak, cannot eat/swallow/keep anything down, dizzy/ green/ scared, mid abd pain+ Hospital Course For past 48 hrs, she has received extensive ivf, started on cipro 500mg bid, & slowly increasing contents of her diet. She responded very well with cares, today, remains vss, no febrile, walked around without dizziness, ate food ok without n/v, urinated well. She will be going home today, with her usual home meds & 5 more days of cipro 500mg bid Home Meds Active Scripts Trimethobenzamide Hcl* (Tigan*) 300 Mg Capsule, 300 MG PO QID Y for NAUSEA for 10 Days, #30 CAP Prov:SHERYL HAMMONDS MD 08/06/16 Nortriptyline Hcl* (Nortriptyline Hcl*) 25 Mg Capsule, 25 MG PO TID for 30 Days , #90 CAP Prov:SHERYL HAMMONDS MD 08/06/16 Escitalopram Oxalate* (Escitalopram Oxalate*) 10 Mg Tablet, 10 MG PO DAILY for 30 Days, #30 TAB 3 Refills Prov:SHERYL HAMMONDS MD 08/06/16 Ondansetron Hcl* (Zofran*) 4 Mg Tablet, 4 MG PO Q8H Y for NAUSEA AND/OR VOMITING , #30 TAB Prov:MIAN ROACH MD 08/01/16 Pantoprazole Sodium (Protonix) 40 Mg Granpkt.dr, 40 MG PO BID for 30 Days, #60 Prov:MONTRELL MOLINA 06/15/16 Amitriptyline Hcl* (Amitriptyline Hcl*) 50 Mg Tablet, 50 MG PO HS for 30 Days, # 30 TAB Prov:MONTRELL MOLINA 06/15/16 Labetalol Hcl* (Labetalol Hcl*) 200 Mg Tablet, 200 MG PO TID for 30 Days, #90 TAB Prov:MONTRELL MOLINA MD- 06/15/16 Reported Medications Ciprofloxacin Hcl* (Ciprofloxacin Hcl*) 500 Mg Tablet, 500 MG PO BID, #10 TAB 08/13/16 Discontinued Reported Medications Ciprofloxacin Hcl* (Ciprofloxacin Hcl*) 500 Mg Tablet, 500 MG PO BID, #10 TAB 08/13/16 Discontinued Scripts Metronidazole (Flagyl) 250 Mg Tab, 250 MG PO TID for 7 Days, TAB Prov:SHERYL HAMMONDS MD 08/06/16 Follow-up Plan with in 1 week outpt pmd visit Primary Care Provider Sheryl Hammonds MD Time spent on discharge: > 30 minutes Pending Labs Laboratory Tests Test 08/13/16 05:45 08/13/16 07:26 08/13/16 12:10 08/13/16 17:34 White Blood Count 8.410^3/ul (4.8-10.8) Red Blood Count 3.6310^6/ul (4.20-5.40) Hemoglobin 10.4g/dl (12.0-16.0) Hematocrit 32.1% (37.0-47.0) Mean Corpuscular Volume 88.4fl (82.0-101.0) Mean Corpuscular Hemoglobin 28.7pg (29.0-33.0) Mean Corpuscular Hemoglobin Concent 32.4g/dl (32.0-37.0) Red Cell Distribution Width 13.8% (11.5-14.5) Platelet Count 28050^3/UL (140-415) Mean Platelet Volume 8.6fl (7.4-10.4) Neutrophils % 62.9% (39.0-77.0) Lymphocytes % 26.2% (15.0-51.0) Monocytes % 8.6% (0.0-11.0) Eosinophils % 1.3% (0.0-7.0) Basophils % 0.8% (0.0-2.0) Nucleated Red Blood Cells % 0.0/100WBC (0.0-0.0) Neutrophils # 5.310^3/ul (1.6-7.5) Lymphocytes # 2.210^3/ul (0.8-2.9) Monocytes # 0.710^3/ul (0.3-0.9) Eosinophils # 0.110^3/ul (0.0-0.5) Basophils # 0.110^3/ul (0.0-0.1) Nucleated Red Blood Cells # 0.010^3/ul (0.0-0.0) Sodium Level 139mmol/L (135-144) Potassium Level 3.6mmol/L (3.5-5.1) Chloride Level 104mmol/L (97-110) Carbon Dioxide Level 21mmol/L (21-31) Anion Gap 18 (8-16) Blood Urea Nitrogen 8mg/dl (7-20) Creatinine 0.73mg/dl (0.44-1.00) Glucose Level 89mg/dl (70-220) Hemoglobin A1c 5.6% (0-5.9) Calcium Level 8.9mg/dl (8.4-10.2) Magnesium Level 1.9mg/dl (1.7-2.5) Albumin 3.7g/dl (3.3-4.9) Bedside Glucose 92mg/dL (70-220) 86mg/dL (70-220) 85mg/dL (70-220) TAWANNA ROSS MD Aug 13, 2016 19:06
== END 2016-08-13 19:15 | disposition home or self-care (01) | DRG 392 ==
LOC: E/R 23:49 → TEL 08-12 07:09
PROVIDERS: ADMIT Internal Medicine; ATTEND Internal Medicine
DX: K52.9 Noninfective gastroenteritis and colitis, unspecified (principal); N39.0 Urinary tract infection, site not specified; I10 Essential (primary) hypertension; E11.9 Type 2 diabetes mellitus without complications; F32.9 Major depressive disorder, single episode, unspecified; N28.9 Disorder of kidney and ureter, unspecified; E86.0 Dehydration
CPT/HCPCS: 80048; 80053; 81001; 81003; 82040; 82962; 83036; 83690; 83735; 85025; J2060; J2270; J2405; J3250; J7030; J7040

== ENCOUNTER 2016-08-20 00:39 | Emergency (ER) | END 2016-08-20 05:42 | disposition home or self-care (01) | DX: G43.A0 Cyclical vomiting, in migraine, not intractable (principal) | CPT/HCPCS: 36415; 80053; 81003; 83690; 85025; 96374; 96375; 99284; J2060; J2270; J2405; J7030 ==

== ENCOUNTER 2017-03-18 08:59 | Emergency (ER) | END 2017-03-18 14:00 | disposition home or self-care (01) ==

== ENCOUNTER 2017-08-02 11:08 | Emergency (ER) | END 2017-08-02 19:00 | disposition home or self-care (01) ==

== ENCOUNTER → 2018-01-30 | Outpatient (CLI) | END | disposition home or self-care (01) ==

== ENCOUNTER 2018-05-16 10:21 | Emergency (ER) | payer BC ==
[~2018-05-16] VITALS: Wt 70.0 kg
[~2018-05-16 10:21] MED LIST changes: -AMIT50TA3 PO; -ESCI10TA48 PO; -LABE200T25 PO; +LORA1TAB PO; -METR-111 PO; -NORT25CA PO; +ONDA4TAB14 PO; -ONDA4TAB8 PO; -PANT40SU PO; +PANT40TA4 PO; -TRIM300C16 PO
[2018-05-16 10:23] VITALS: RESP 18
[2018-05-16] MEDS ORDERED: ACETAMINOPHEN 325 MG TAB PO ONE (11:00)
[2018-05-16 11:52] VITALS: BP 117/78; PULSE 67
[2018-05-16] MEDS ORDERED: CEPH-443 PO (11:52)
[2018-05-16] MEDS ORDERED: IBUP-1542 PO (11:52)
[2018-05-16] MEDS ORDERED: NITR-58 PO (11:55)
--- NOTE | 2018-05-16 11:55 | ERD ---
ER Documentation Chief Complaint Chief Complaint AP X 2 DAYS HPI 33-year-old female presents with left lower abdominal pain for last 2 days. She denies any dysuria, vaginal discharge or bleeding. Patient is approximately 2 weeks late for her. Although home tests have been negative. She has a history of cyclical vomiting but denies vomiting or epigastric pain. She denies fevers. ROS All systems reviewed and are negative except as per history of present illness. Medications Home Meds Active Scripts Nitrofurantoin Monohyd Macrocr* (Macrobid*) 100 Mg Capsr, 100 MG PO BID for 7 Days, CAP Prov:DEJA QUINTERO MD 05/16/18 Ibuprofen* (Motrin*) 600 Mg Tab, 600 MG PO Q6, #15 TAB Prov:DEJA QUINTERO MD 05/16/18 Lorazepam* (Lorazepam*) 1 Mg Tablet, 1 MG PO Q8H PRN for ANXIETY, #20 TAB Prov:YENI LOPES MD 08/02/17 Ondansetron (Ondansetron Odt) 4 Mg Tab.rapdis, 4 MG PO Q6H PRN for NAUSEA AND/OR VOMITING, #20 TAB Prov:YENI LOPES MD 08/02/17 Reported Medications Pantoprazole* (Pantoprazole*) 40 Mg Tablet.dr, 40 MG PO AC BREAKFAST, TAB 08/02/17 Discontinued Scripts Cephalexin* (Keflex*) 500 Mg Capsule, 500 MG PO QID for 5 Days, CAP Prov:DEJA QUINTERO MD 05/16/18 Allergies Allergies: Coded Allergies: cephalexin (Verified Allergy, Intermediate, HIVES, 05/16/18) metoclopramide (Verified Allergy, Mild, 08/02/17) Penicillins (Verified Allergy, Unknown, 08/02/17) PMhx/Soc History of Surgery: Yes (C SECTION) Anesthesia Reaction: No Hx Neurological Disorder: No Hx Respiratory Disorders: No Hx Cardiac Disorders: Yes (GESTATIONAL HYPERTENSION) Hx Psychiatric Problems: No Hx Miscellaneous Medical Probl: No (r/o fibromyalgia, uti) Hx Alcohol Use: No Hx Substance Use: No Hx Tobacco Use: No FmHx Family History: No diabetes, No coronary disease, No other Physical Exam Vitals Vital Signs Date Temp Pulse Resp B/P (MAP) Pulse Ox O2 O2 Flow FiO2 Time Delivery Rate 05/16/18 67 117/78 11:52 (91) 05/16/18 98.7 81 18 153/93 99 10:23 (113) Physical Exam Const: No acute distress Head: Atraumatic Eyes: Normal Conjunctiva ENT: Normal External Ears, Nose and Mouth. Neck: Full range of motion. No meningismus. Resp: Clear to auscultation bilaterally Cardio: Regular rate and rhythm, no murmurs Abd: Soft, and left lower quadrant tenderness but without masses. No tenderness McBurney's point no Moya sign. No rebound. Non distended. Normal bowel sounds Skin: No petechiae or rashes Back: No midline or flank tenderness Ext: No cyanosis, or edema Neur: Awake and alert Psych: Normal Mood and Affect Results 24 hrs Laboratory Tests Test 05/16/18 10:58 05/16/18 11:02 Urine Color YELLOW Urine Clarity CLOUDY Urine pH 6.0 Urine Specific [place] 1.021 Urine Ketones NEGATIVE mg/dL Urine Nitrite NEGATIVE mg/dL Urine Bilirubin NEGATIVE mg/dL Urine Urobilinogen NEGATIVE mg/dL Urine Leukocyte Esterase 2+ [place]/ul Urine Microscopic RBC 3 /HPF Urine Microscopic WBC 20 /HPF Urine Squamous Epithelial Cells MODERATE /HPF Urine Mucus FEW /HPF Urine Hemoglobin NEGATIVE mg/dL Urine Glucose NEGATIVE mg/dL Urine Total Protein NEGATIVE mg/dl POC Beta HCG, Qualitative NEGATIVE Current Medications Medications Dose Sig/Laith Start Time Status Last (Trade) Ordered Route PRN Stop Time Admin Dose Reason Admin 650 mg ONCE ONCE 05/16/18 DC 05/16/18 Acetaminophen PO 11:00 05/16/18 11:03 (Tylenol 11:01 Tab) Cephalexin 500 mg ONCE ONCE 05/16/18 DC (Keflex) PO 12:00 05/16/18 12:00 100 mg ONCE ONCE 05/16/18 DC 05/16/18 Nitrofurantoi PO 12:00 05/16/18 12:02 n 12:01 Macrocrystals (Macrobid) Procedures/MDM Urine shows white blood cells and leukocytes esterase. Urine sent for gonorrhea chlamydia. Pelvic ultrasound shows right-sided complex cyst which is small with left ovary appearing normal. There is no additional acute abnormalities. Patient was stable amatory [id number] throughout the ER course. Patient had a recheck blood pressure which is improved. Patient was given Tylenol for headache and pain. She has no signs of meningismus, signs of additional concerning signs or symptoms. She may have pain related to ovulation. Current signs or symptoms do not suggest PID, tubal ovarian abscess, ovarian torsion, surgical abdomen. We will treat for UTI with Macrobid, and ibuprofen for pain. She should return for fevers, right-sided abdominal pain, new or worsening symptoms with primary doctor this week. Departure Diagnosis: Primary Impression: Abdominal pain Abdominal location: left lower quadrant Qualified Codes: R10.32 - Left lower quadrant pain Additional Impression: Urinary tract infection Urinary tract infection type: acute cystitis Hematuria presence: without hematuria Qualified Codes: N30.00 - Acute cystitis without hematuria Condition: Stable Patient Instructions: Understanding Urinary Tract Infections (UTIs), Pelvic Pain, Unknown Cause Referrals: DOUG HAMMONDS MD (PCP) Additional Instructions: Uncertain cause of pain. May be related to ovulation. Urine shows signs of infection we will treat for this. Cultures for cervicitis pending and should return within a week. Recheck for fevers, vomiting, right-sided pain, new worsening symptoms with primary care doctor. DEJA QUINTERO MD May 16, 2018 11:55
[2018-05-16] MEDS ORDERED: NITROFURANTOIN (SR) 100 MG CAP PO ONE (12:00)
[2018-05-16] MEDS ORDERED: CEPHALEXIN 500 MG CAP PO ONE (12:00)
== END 2018-05-16 12:13 | disposition home or self-care (01) ==
LOC: FTE 10:21
DX: N30.00 Acute cystitis without hematuria (principal); R10.2 Pelvic and perineal pain
CPT/HCPCS: 76830; 76856; 81001; 81025; 87591

== ENCOUNTER → 2018-10-01 | Outpatient (CLI) | payer BC ==
[~2018-10-01] MED LIST changes: +IBUP-1542 PO; +NITR-58 PO
== END | disposition home or self-care (01) ==
LOC: LAB 07:18
PROVIDERS: ATTEND Internal Medicine
DX: R94.5 Abnormal results of liver function studies (principal); E55.9 Vitamin D deficiency, unspecified; D64.9 Anemia, unspecified; E78.00 Pure hypercholesterolemia, unspecified
CPT/HCPCS: 80061; 80076; 82306; 82607; 82728; 82746; 83540; 85025; 86704; 86709; 86803; 87340